=== PATIENT | female | born 1990 | race Caucasian/White ===

== ENCOUNTER 2018-04-15 20:12 | Emergency (ER) | payer SELFPAY ==
[2018-04-15] MEDS ORDERED: NA CHLORIDE 0.9% 1,000 ML ONE ×2 (20:45→21:47)
[2018-04-15] MEDS ORDERED: ACETAMINOPHEN 500 MG TAB ONE (21:07)
[2018-04-15 21:09] LABS: Absolute Lymphocytes (CBC) 4.3 K/uL (0.7-4.9); Absolute Monocytes 0.7 K/uL (0.1-1.3); Absolute Neutrophil 4.8 K/uL (1.8-8.0); Basophils % 0.4 % (0-1.3); Eosinophils % 0.8 % (0-4.4); Hematocrit 41.5 % (36.0-45.0); Lymphocytes % 42.9 % (15.3-44.8); MCH 31.9 pg (27.0-35.0); MCV 93.8 fL (80-100); MPV 9.8 fL (7.6-11.3); Monocytes % 7.4 % (3.3-12.3); RBC Red Blood Cell Count 4.42 M/uL (3.86-4.86)
[2018-04-15 21:25] LABS: Albumin 3.9 g/dL (3.4-5.0); Bilirubin Total 0.4 mg/dL (0.2-1.0); Potassium 3.3 mmol/L (3.5-5.1); Protein, Total 7.4 g/dL (6.4-8.2)
[2018-04-15 22:01] LABS: Urine Blood NEGATIVE (NEG); Urine Glucose NEGATIVE (NEG); Urine Protein NEGATIVE (NEG); Urine pH 6.5 (5.0-7.0)
[2018-04-15] MEDS ORDERED: POTASSIUM 25 MEQ EFFERV TAB ONE (22:02)
[2018-04-15 22:14] LABS: Barbiturates NEGATIVE (NEGATIVE); Benzodiazepines NEGATIVE (NEGATIVE); Cocaine NEGATIVE (NEGATIVE); METHAMPHETAM POSITIVE (NEGATIVE); Methadone NEGATIVE (NEGATIVE); Opiates NEGATIVE (NEGATIVE); Phencyclidine NEGATIVE (NEGATIVE); THC Cannibis NEGATIVE (NEGATIVE)
--- NOTE | 2018-04-16 00:33 | ER ---
Nurse's Notes [facility] Name: Brandy Olivia Age: 27 yrs Sex: Female : 1990 Arrival Date: 04/15/2018 Time: 20:18 Bed 19 Private MD: Diagnosis: Methamphetamine abuse Presentation: 04/15 20:25 Presenting complaint: Patient states: "I think I may have overdosed on meth. This is aj the first time I have ever smoked it." Patient reports smoking meth last night, feels palpitations last night, can't catch her breath. Patient reports burning in chest. Transition of care: patient was not received from another setting of care. Onset of symptoms was April 14, 2018. Risk Assessment: Do you want to hurt yourself or someone else? Patient reports no desire to harm self or others. Initial Sepsis Screen: Does the patient meet any 2 criteria? No. Patient's initial sepsis screen is negative. Does the patient have a suspected source of infection? No. Patient's initial sepsis screen is negative. Care prior to arrival: None. 20:25 Method Of Arrival: Ambulatory 20:25 Acuity: ARIN 3 aj Triage Assessment: 20:27 General: Appears in no apparent distress. uncomfortable, Behavior is calm, cooperative, aj appropriate for age. Pain: Complains of pain in chest. Neuro: Level of Consciousness is awake, alert, obeys commands, Oriented to person, place, time, situation, Appropriate for age. Cardiovascular: Reports chest pain. Respiratory: Airway is patent Respiratory effort is even, unlabored, Respiratory pattern is regular, symmetrical. Derm: Skin is intact, is healthy with good turgor, Skin is pink, warm \\T\\ dry. normal. 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 - Social history:: Smoking status: Patient uses tobacco products, smokes one pack cigarettes per day. Patient uses alcohol, weekly. street drugs, Methamphetamine (Meth). - Ebola Screening: : Patient negative for fever greater than or equal to 101.5 degrees Fahrenheit, and additional compatible Ebola Virus Disease symptoms Patient denies exposure to infectious person Patient denies travel to an Ebola-affected area in the 21 days before illness onset No symptoms or risks identified at this time. Screenin:05 Abuse screen: Denies threats or abuse. Denies injuries from another. Nutritional bs1 screening: No deficits noted. Tuberculosis screening: No symptoms or risk factors identified. Fall Risk None identified. Assessment: 20:50 General: Appears uncomfortable, Behavior is cooperative, anxious. Pain: Complains of bs1 pain in chest. Neuro: Level of Consciousness is awake, alert, obeys commands, Oriented to person, place, time, situation. Neuro: Reports headache. Cardiovascular: Reports chest pain, shortness of breath, Heart tones S1 S2 present Capillary refill < 3 seconds Patient's skin is warm and dry. Respiratory: Airway is patent Trachea midline Respiratory effort is even, unlabored, Respiratory pattern is regular, symmetrical, Breath sounds are clear bilaterally. GI: No signs and/or symptoms were reported involving the gastrointestinal system. : No signs and/or symptoms were reported regarding the genitourinary system. EENT: Eyes redness noted to bilateral eyes. Derm: No signs and/or symptoms reported regarding the dermatologic system. Musculoskeletal: Circulation, motion, and sensation intact. Capillary refill < 3 seconds, Range of motion: intact in all extremities. 21:50 Reassessment: No changes from previously documented assessment. Patient and/or family bs1 updated on plan of care and expected duration. Pain level reassessed. Patient is alert, oriented x 3, equal unlabored respirations, skin warm/dry/pink. Patient crying, anxious, reports heaviness in chest and "Hard to catch breath.". 22:50 Reassessment: Patient appears in no apparent distress at this time. Patient and/or bs1 family updated on plan of care and expected duration. Pain level reassessed. Patient is alert, oriented x 3, equal unlabored respirations, skin warm/dry/pink. Patient reports symptoms improving. Heart rate decreasing. Informed of POC. Patient was given 500mg tylenol po, per verbal order from SD Mayer. 04/16 00:00 Reassessment: Patient appears in no apparent distress at this time. Patient and/or bs1 family updated on plan of care and expected duration. Pain level reassessed. Patient is alert, oriented x 3, equal unlabored respirations, skin warm/dry/pink. No further needs at this time. Patient denies pain at this time. 00:45 Reassessment: Patient appears in no apparent distress at this time. Patient and/or bs1 family updated on plan of care and expected duration. Pain level reassessed. Patient is alert, oriented x 3, equal unlabored respirations, skin warm/dry/pink. Patient states understanding of DC instructions/POC Patient states feeling better. Patient states symptoms have improved. Vital Signs: 04/15 20:27 BP 187 / 118; Pulse 125; Resp 20; Temp 98.4; Pulse Ox 97% on R/A; Weight 81.65 kg; aj Height 5 ft. 2 in. (157.48 cm); 21:05 BP 149 / 98; Pulse 112; Resp 22 S; Pulse Ox 98% on R/A; bs1 22:05 BP 138 / 98; Pulse 83; Resp 17 S; Pulse Ox 98% on R/A; bs1 23:05 BP 148 / 95; Pulse 86; Resp 18 S; Pulse Ox 98% on R/A; Pain 0/10; bs1 04/16 00:05 BP 131 / 91; Pulse 93; Resp 18; Pulse Ox 100% on R/A; Pain 0/10; bs1 00:45 BP 124 / 77; Pulse 87; Resp 18; Temp 98; Pulse Ox 98% on R/A; Pain 0/10; bs1 04/15 20:27 Body Mass Index 32.92 (81.65 kg, 157.48 cm) ED Course: 04/15 20:18 Patient arrived in ED. es 20:27 Triage completed. aj 20:27 Arm band placed on right wrist. Patient placed in an exam room. aj 20:31 Alfredo Mayer NP is PHCP. pm1 20:31 Siddhartha Ferro MD is Attending Physician. pm1 20:38 Ayanna Bonilla, MARIO ALBERTO is Primary Nurse. bs1 20:57 Inserted saline lock: 22 gauge in left antecubital area, using aseptic technique. Blood bs1 collected. 21:06 Patient has correct armband on for positive identification. Bed in low position. Call bs1 light in reach. Side rails up X 1. Pulse ox on. NIBP on. 04/16 00:52 No provider procedures requiring assistance completed. IV discontinued, bleeding bs1 controlled, No redness/swelling at site. Pressure dressing applied. Administered Medications: 04/15 21:04 Drug: NS 0.9% 1000 ml Route: IV; Rate: 1000 ml; Site: left antecubital; bs1 04/16 00:55 Follow up: IV Status: Completed infusion bs1 04/15 22:26 Drug: Potassium Effervescent Tablet 50 mEq Route: PO; bs1 23:39 Follow up: Response: No adverse reaction bs1 22:26 Drug: NS 0.9% 1000 ml Route: IV; Rate: 1000 ml; Site: left antecubital; bs1 04/16 00:54 Follow up: IV Status: Completed infusion bs1 Outcome: 00:32 Discharge ordered by MD. pm1 00:52 Discharged to home ambulatory, with friend. bs1 00:52 Condition: stable 00:52 Discharge instructions given to patient, Instructed on discharge instructions, follow up and referral plans. Demonstrated understanding of instructions, follow-up care. 00:55 Patient left the ED. bs1 Signatures: Dana Ramirez, RN RN Daisy Greco Patrick, CARBON COATER MACHINE OPERATOR CAR[employer] COATER MACHINE OPERATOR pm1 Ayanna Bonilla RN RN bs1 Corrections: (The following items were deleted from the chart) 00:58 04/15 22:50 Reassessment: Patient appears in no apparent distress at this time. Patient bs1 and/or family updated on plan of care and expected duration. Pain level reassessed. Patient is alert, oriented x 3, equal unlabored respirations, skin warm/dry/pink. Patient reports symptoms improving. Heart rate decreasing. Informed of POC bs1
--- NOTE | 2018-04-16 00:33 | EDPHYS ---
Physician Documentation [facility] Name: Brandy Olivia Age: 27 yrs Sex: Female : 1990 Arrival Date: 04/15/2018 Time: 20:18 Bed 19 Private MD: ED Physician Siddhartha Ferro HPI: 04/15 22:00 This 27 yrs old Female presents to ER via Ambulatory with complaints of pm1 Possible Overdose, Palpitations. 22:00 The patient presents to the emergency department Patient used methamphetamine for the pm1 first time last night in the this morning. Patient smoked and snorted the drug. Associated signs and symptoms: Pertinent positives: palpitations, Chest pain, Pertinent negatives: auditory hallucinations, shortness of breath, visual hallucinations. The patient has not experienced similar symptoms in the past. 22:00 Patient feels like she is crawling out of her skin. 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 - Social history:: Smoking status: Patient uses tobacco products, smokes one pack cigarettes per day. Patient uses alcohol, weekly. street drugs, Methamphetamine (Meth). - Ebola Screening: : Patient negative for fever greater than or equal to 101.5 degrees Fahrenheit, and additional compatible Ebola Virus Disease symptoms Patient denies exposure to infectious person Patient denies travel to an Ebola-affected area in the 21 days before illness onset No symptoms or risks identified at this time. ROS: 22:00 Constitutional: Negative for fever, chills, and weight loss, Eyes: Negative for injury, pm1 pain, redness, and discharge, ENT: Negative for injury, pain, and discharge, Neck: Negative for injury, pain, and swelling. 22:00 Respiratory: Negative for shortness of breath, cough, wheezing, and pleuritic chest pain, Abdomen/GI: Negative for abdominal pain, nausea, vomiting, diarrhea, and constipation, Back: Negative for injury and pain, : Negative for injury, bleeding, discharge, and swelling, MS/Extremity: Negative for injury and deformity, Skin: Negative for injury, rash, and discoloration, Neuro: Negative for headache, weakness, numbness, tingling, and seizure. 22:00 Cardiovascular: Positive for chest pain, palpitations, Negative for edema, orthopnea. 22:00 Psych: Positive for anxiety, Negative for auditory hallucinations, visual hallucinations. Exam: 22:00 Constitutional: This is a well developed, well nourished patient who is awake, alert, pm1 and in no acute distress. Head/Face: Normocephalic, atraumatic. Eyes: Pupils equal round and reactive to light, extra-ocular motions intact. Lids and lashes normal. Conjunctiva and sclera are non-icteric and not injected. Cornea within normal limits. Periorbital areas with no swelling, redness, or edema. ENT: Nares patent. No nasal discharge, no septal abnormalities noted. Tympanic membranes are normal and external auditory canals are clear. Oropharynx with no redness, swelling, or masses, exudates, or evidence of obstruction, uvula midline. Mucous membranes moist. Neck: Trachea midline, no thyromegaly or masses palpated, and no cervical lymphadenopathy. Supple, full range of motion without nuchal rigidity, or vertebral point tenderness. No Meningismus. Chest/axilla: Normal chest wall appearance and motion. Nontender with no deformity. No lesions are appreciated. Cardiovascular: Regular rate and rhythm with a normal S1 and S2. No gallops, murmurs, or rubs. Normal PMI, no JVD. No pulse deficits. Respiratory: Lungs have equal breath sounds bilaterally, clear to auscultation and percussion. No rales, rhonchi or wheezes noted. No increased work of breathing, no retractions or nasal flaring. Abdomen/GI: Soft, non-tender, with normal bowel sounds. No distension or tympany. No guarding or rebound. No evidence of tenderness throughout. Back: No spinal tenderness. No costovertebral tenderness. Full range of motion. Skin: Warm, dry with normal turgor. Normal color with no rashes, no lesions, and no evidence of cellulitis. MS/ Extremity: Pulses equal, no cyanosis. Neurovascular intact. Full, normal range of motion. 22:00 Neuro: Orientation: is normal, Motor: is normal. Vital Signs: 20:27 BP 187 / 118; Pulse 125; Resp 20; Temp 98.4; Pulse Ox 97% on R/A; Weight 81.65 kg; aj Height 5 ft. 2 in. (157.48 cm); 21:05 BP 149 / 98; Pulse 112; Resp 22 S; Pulse Ox 98% on R/A; bs1 22:05 BP 138 / 98; Pulse 83; Resp 17 S; Pulse Ox 98% on R/A; bs1 23:05 BP 148 / 95; Pulse 86; Resp 18 S; Pulse Ox 98% on R/A; Pain 0/10; bs1 04/16 00:05 BP 131 / 91; Pulse 93; Resp 18; Pulse Ox 100% on R/A; Pain 0/10; bs1 00:45 BP 124 / 77; Pulse 87; Resp 18; Temp 98; Pulse Ox 98% on R/A; Pain 0/10; bs1 04/15 20:27 Body Mass Index 32.92 (81.65 kg, 157.48 cm) aj MDM: 04/15 20:31 Patient medically screened. pm1 04/16 00:28 Data reviewed: vital signs. Data interpreted: Pulse oximetry: on room air is 100 %. pm1 Interpretation: normal. Counseling: I had a detailed discussion with the patient and/or guardian regarding: the historical points, exam findings, and any diagnostic results supporting the discharge/admit diagnosis, lab results, the need for outpatient follow up, to return to the emergency department if symptoms worsen or persist or if there are any questions or concerns that arise at home. 04/15 20:37 Order name: UDS; Complete Time: 22:28 pm04/15 20:37 Order name: CBC with Diff; Complete Time: 21:30 pm04/15 20:37 Order name: CMP; Complete Time: 21:30 pm04/15 21:51 Order name: Urine Dipstick--Ancillary (enter results); Complete Time: 22:28 ms 04/15 21:51 Order name: Urine --Ancillary (enter results); Complete Time: 22:28 ms 04/15 20:37 Order name: EKG; Complete Time: 20:37 pm1 04/15 20:37 Order name: EKG - Nurse/Tech; Complete Time: 21:03 pm04/15 20:37 Order name: IV Saline Lock; Complete Time: 21:03 pm04/15 20:37 Order name: Urine Test (obtain specimen); Complete Time: 21:50 pm1 Administered Medications: 04/15 21:04 Drug: NS 0.9% 1000 ml Route: IV; Rate: 1000 ml; Site: left antecubital; bs1 04/16 00:55 Follow up: IV Status: Completed infusion bs1 04/15 22:26 Drug: Potassium Effervescent Tablet 50 mEq Route: PO; bs1 23:39 Follow up: Response: No adverse reaction bs1 22:26 Drug: NS 0.9% 1000 ml Route: IV; Rate: 1000 ml; Site: left antecubital; bs1 04/16 00:54 Follow up: IV Status: Completed infusion bs1 Disposition: 04/16/18 00:32 Discharged to Home. Impression: Methamphetamine abuse. - Condition is Stable. - Discharge Instructions: Stimulant Use Disorder-Methamphetamines. - Medication Reconciliation Form, Thank You Letter form. - Follow up: Emergency Department; When: As needed; Reason: Worsening of condition. Follow up: Private Physician; When: 2 - 3 days; Reason: Recheck today's complaints, Continuance of care, Re-evaluation by your physician. - Problem is new. - Symptoms have improved. Signatures: Dispatcher [employer] EDMS Dana Ramirez RN RN Alfredo Zamora NP CONTROL CABINET ASSEMBLER pm1 Ayanna Bonilla RN RN bs1 Corrections: (The following items were deleted from the chart) 00:55 00:32 04/16/2018 00:32 Discharged to Home. Impression: Methamphetamine abuse. Condition bs1 is Stable. Forms are Medication Reconciliation Form, Thank You Letter, Antibiotic Education, Prescription Opioid Use. Follow up: Emergency Department; When: As needed; Reason: Worsening of condition. Follow up: Private Physician; When: 2 - 3 days; Reason: Recheck today's complaints, Continuance of care, Re-evaluation by your physician. Problem is new. Symptoms have improved. pm1
[2018-04-16 01:06] VITALS: BP 124/77; TEMP 98; O2SAT 98
--- NOTE | 2018-04-16 06:43 | EKG ---
Test Date: 2018-04-15 Test Time: 20:36:06 Buyer Tobacco Head: TIMI MEASUREMENT RESULTS: Intervals: Rate: 103 OR: 142 QRSD: 80 QT: 340 QTc: 445 [place]: P: 57 OR: 142 QRS: 72 T: 39 INTERPRETIVE STATEMENTS: Sinus tachycardia Otherwise normal ECG No previous ECG available for comparison Electronically Signed On 04-16-18 06:42:04 CDT by Memo Virk
== END 2018-04-16 00:55 | disposition home or self-care (01) ==
LOC: ER 20:12
DX: F15.10 Other stimulant abuse, uncomplicated (principal); F17.210 Nicotine dependence, cigarettes, uncomplicated
CPT/HCPCS: 36415; 80053; 80307; 81003; 81025; 85025; 93005; 96360; 96361; 99284; J7030

== ENCOUNTER 2022-03-22 12:50 | Emergency (ER) | payer OTHER ==
[2022-03-22] MEDS ORDERED: METOCLOPRAMIDE 10 MG/2mL INJ ONE (13:29)
[2022-03-22] MEDS ORDERED: DIPHENHYDRAMINE 50 MG/ML VIAL ONE (13:30)
[2022-03-22] MEDS ORDERED: NA CHLORIDE 0.9% 1,000 ML ONE (13:30)
[2022-03-22] MEDS ORDERED: dexAMETHasone 10 MG/ML VIAL ONE (13:30)
--- NOTE | 2022-03-22 14:55 | ER ---
Nurse's Notes [facility] Name: Brandy Olivia Age: 31 yrs Sex: Female : 1990 Arrival Date: 03/22/2022 Time: 12:52 Bed 11 Private MD: Diagnosis: Headache Presentation: 03/22 12:56 Chief complaint: Patient states: seems to be having a migraine, started at 3 am , iw throbbing pain throughout day, getting worse , bent over and felt like she was going to pass out feels dizzy, reports pain to front and top of head, feels better when she applies pressure to her head, took Excedrin with no relief , has had a migraine in past but did not have dizziness with it. Coronavirus screen: Client presents with at least one sign or symptom that may indicate coronavirus-19. Ebola Screen: Patient negative for fever greater than or equal to 101.5 degrees Fahrenheit, and additional compatible Ebola Virus Disease symptoms Patient denies exposure to infectious person. Patient denies travel to an Ebola-affected area in the 21 days before illness onset. No symptoms or risks identified at this time. Initial Sepsis Screen: Does the patient meet any 2 criteria? No. Patient's initial sepsis screen is negative. Does the patient have a suspected source of infection? No. Patient's initial sepsis screen is negative. Risk Assessment: Do you want to hurt yourself or someone else? Patient reports no desire to harm self or others. Onset of symptoms was March 22, 2022. 12:56 Method Of Arrival: Ambulatory iw 12:56 Acuity: ARIN 3 iw Historical: - Allergies: 12:58 No Known Allergies; iw - Home Meds: 12:58 fluoxetine 40 mg Oral cap 1 cap once daily [Active]; iw - PMHx: 12:58 Post depression; iw - PSHx: 12:58 section; iw - Immunization history:: Client reports receiving the 2nd dose of the Covid vaccine. - Social history:: Smoking status: Reported history of juuling and/or vaping. Screenin:48 Abuse screen: Denies threats or abuse. Denies injuries from another. Nutritional iw screening: No deficits noted. Tuberculosis screening: No symptoms or risk factors identified. Fall Risk IV access (20 points). Assessment: 13:00 General: Appears in no apparent distress. Behavior is calm, cooperative. Pain: iw Complains of pain in back of head and face. Neuro: Level of Consciousness is awake, alert, obeys commands, Oriented to person, place, time, situation, Moves all extremities. Reports headache frontal area. Cardiovascular: Patient's skin is warm and dry. Respiratory: Respiratory effort is even, unlabored, Respiratory pattern is regular, symmetrical. 15:00 Reassessment: Patient appears in no apparent distress at this time. Patient and/or ld1 family updated on plan of care and expected duration. Pain level reassessed. Patient is alert, oriented x 3, equal unlabored respirations, skin warm/dry/pink. Vital Signs: 12:56 BP 128 / 91; Pulse 78; Resp 16; Temp 97.5; Pulse Ox 100% on R/A; iw ED Course: 12:52 Patient arrived in ED. mr 12:57 Tesfaye Ruiz DO is Attending Physician. ms3 12:58 Triage completed. iw 12:59 Arm band placed on. iw 13:00 Inserted saline lock: 20 gauge in right antecubital area, using aseptic technique. iw 13:47 Halie Valerio, RN is Primary Nurse. iw 13:50 Inserted saline lock: 20 gauge in left hand, using aseptic technique. ld1 14:54 Alec Ray MD is Referral Physician. ms3 15:00 Patient has correct armband on for positive identification. Placed in gown. Bed in low ld1 position. Call light in reach. Side rails up X2. Pulse ox on. NIBP on. Door closed. Noise minimized. Warm blanket given. 15:00 No provider procedures requiring assistance completed. IV discontinued, intact, ld1 bleeding controlled, No redness/swelling at site. Administered Medications: 13:50 Drug: Reglan (metoCLOPramide) 10 mg Route: IVP; Site: left hand; ld1 13:50 Drug: Benadryl (diphenhydrAMINE) 25 mg Route: IVP; Site: left hand; ld1 13:50 Drug: Decadron - Dexamethasone 10 mg Route: IVP; Site: left hand; ld1 13:50 Drug: NS 0.9% 1000 ml Route: IV; Rate: 1000 ml; Site: left hand; ld1 Medication: 15:00 VIS not applicable for this client. ld1 Outcome: 14:55 Discharge ordered by . ms3 15:00 Discharged to home ambulatory. ld1 15:00 Condition: stable 15:00 Discharge instructions given to patient, Instructed on discharge instructions, follow up and referral plans. medication usage, Demonstrated understanding of instructions, follow-up care, medications, Prescriptions given X 1. 15:01 Patient left the ED. ld1 Signatures: Cinthia Swann mr Halie Valerio RN RN iw Tesfaye Ruiz DO DO ms3 Keisha Narvaez RN RN ld1
--- NOTE | 2022-03-22 14:55 | EDPHYS ---
Physician Documentation [facility] Name: Brandy Olivia Age: 31 yrs Sex: Female : 1990 Arrival Date: 03/22/2022 Time: 12:52 Bed 11 Private MD: XENIA Physician Tesfaye Ruiz Historical: - Allergies: 03/22 12:58 No Known Allergies; iw - Home Meds: 12:58 fluoxetine 40 mg Oral cap 1 cap once daily [Active]; iw - PMHx: 12:58 Post depression; iw - PSHx: 12:58 section; iw - Immunization history:: Client reports receiving the 2nd dose of the Covid vaccine. - Social history:: Smoking status: Reported history of juuling and/or vaping. Vital Signs: 12:56 BP 128 / 91; Pulse 78; Resp 16; Temp 97.5; Pulse Ox 100% on R/A; iw MDM: 13:10 Patient medically screened. ms3 Administered Medications: 13:50 Drug: Reglan (metoCLOPramide) 10 mg Route: IVP; Site: left hand; ld1 13:50 Drug: Benadryl (diphenhydrAMINE) 25 mg Route: IVP; Site: left hand; ld1 13:50 Drug: Decadron - Dexamethasone 10 mg Route: IVP; Site: left hand; ld1 13:50 Drug: NS 0.9% 1000 ml Route: IV; Rate: 1000 ml; Site: left hand; ld1 Disposition Summary: 03/22/22 14:55 Discharge Ordered Location: Home ms3 Condition: Stable ms3 Diagnosis - Headache ms3 Followup: ms3 - With: Alec Ray MD - When: 2 - 3 days - Reason: Discharge Instructions: - Discharge Summary Sheet cp - General Headache Without Cause ms3 Forms: - Medication Reconciliation Form ms3 - Thank You Letter ms3 - Antibiotic Education ms3 - Prescription Opioid Use ms3 Prescriptions: - Fioricet 50-300-40 mg Oral capsule - take 1 capsule by ORAL route every 4 hours as needed; 20 capsule; Refills: 0, cp Product Selection Permitted Signatures: Halie Valerio RN RN iw Tesfaye Ruiz DO DO ms3 Keisha Narvaez RN RN ld1
[2022-03-22 15:05] VITALS: BP 128/91; TEMP 97.5; O2SAT 100
== END 2022-03-22 15:01 | disposition home or self-care (01) ==
LOC: ER 12:50
DX: R51.9 Headache, unspecified (principal); O99.345 Other mental disorders complicating the puerperium; F53.0 Postpartum depression
CPT/HCPCS: J2765; J1200; J1100; J7030

== ENCOUNTER 2022-03-23 08:53 | Emergency (ER) | payer OTHER ==
[2022-03-23] MEDS ORDERED: METHYLPREDNISOLONE 125 MG INJ ONE (09:38)
[2022-03-23] MEDS ORDERED: METOCLOPRAMIDE 10 MG/2mL INJ ONE (09:38)
[2022-03-23] MEDS ORDERED: DIPHENHYDRAMINE 50 MG/ML VIAL ONE (09:38)
[2022-03-23] MEDS ORDERED: KETOROLAC 30 MG/ML INJ ONE (09:39)
[2022-03-23] MEDS ORDERED: NA CHLORIDE 0.9% 1,000 ML ONE (09:39)
--- NOTE | 2022-03-23 11:18 | EDPHYS ---
Physician Documentation [facility] Name: Brandy Olivia Age: 31 yrs Sex: Female : 1990 Arrival Date: 03/23/2022 Time: 08:55 Bed 18 Private MD: ED Physician Meet Bentley HPI: 03/23 09:23 This 31 yrs old Female presents to ER via Ambulatory with complaints of Headache, Back jh7 Pain, Neck Pain, <24hrs Old, Leg Pain. 09:23 The patient complains of pain to the top of head, left temporal area and right temporal jh7 area. Onset: The symptoms/episode began/occurred yesterday. Patient complains of headache, neck pain, back pain, and bilateral leg pain. States that she felt better after her ER visit yesterday, that the Fioricet is not helping. States that the headache is worse than yesterday, but that she is also concerned that she may have COVID. No neuro symptoms at this time.. 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 - Social history:: Smoking status: Reported history of juuling and/or vaping. ROS: 09:23 Eyes: Negative for injury, pain, redness, and discharge, ENT: Negative for injury, jh7 pain, and discharge, Cardiovascular: Negative for chest pain, palpitations, and edema, Respiratory: Negative for shortness of breath, cough, wheezing, and pleuritic chest pain, Abdomen/GI: Negative for abdominal pain, nausea, vomiting, diarrhea, and constipation, MS/Extremity: Negative for injury and deformity, Skin: Negative for injury, rash, and discoloration. 09:23 Constitutional: Positive for body aches, Negative for chills, fatigue, fever. 09:23 Neck: Positive for pain at rest, Negative for injury or acute deformity, swelling, tenderness. 09:23 Back: 09:23 Neuro: Positive for headache, Negative for altered mental status, dizziness, gait disturbance, loss of consciousness, numbness, syncope, tingling. 09:23 All other systems are negative. Exam: 09:23 Head/Face: Normocephalic, atraumatic. ENT: Nares patent. No nasal discharge, no jh7 septal abnormalities noted. Tympanic membranes are normal and external auditory canals are clear. Oropharynx with no redness, swelling, or masses, exudates, or evidence of obstruction, uvula midline. Mucous membranes moist. Neck: Trachea midline, no thyromegaly or masses palpated, and no cervical lymphadenopathy. Supple, full range of motion without nuchal rigidity, or vertebral point tenderness. No Meningismus. Cardiovascular: Regular rate and rhythm with a normal S1 and S2. No gallops, murmurs, or rubs. Normal PMI, no JVD. No pulse deficits. Respiratory: Lungs have equal breath sounds bilaterally, clear to auscultation and percussion. No rales, rhonchi or wheezes noted. No increased work of breathing, no retractions or nasal flaring. Abdomen/GI: Soft, non-tender, with normal bowel sounds. No distension or tympany. No guarding or rebound. No evidence of tenderness throughout. Back: No spinal tenderness. No costovertebral tenderness. Full range of motion. Skin: Warm, dry with normal turgor. Normal color with no rashes, no lesions, and no evidence of cellulitis. MS/ Extremity: Pulses equal, no cyanosis. Neurovascular intact. Full, normal range of motion. Neuro: Awake and alert, GCS 15, oriented to person, place, time, and situation. Cranial nerves II-XII grossly intact. Motor strength 5/5 in all extremities. Sensory grossly intact. Cerebellar exam normal. Normal gait. 09:23 Constitutional: The patient appears alert, awake, uncomfortable. Vital Signs: 09:00 BP 130 / 95; Pulse 73; Resp 15; Temp 97.8(TE); Pulse Ox 100% on R/A; Weight 86.18 kg; ss Height 5 ft. 2 in. (157.48 cm); Pain 10/10; 10:17 BP 107 / 65; Pulse 55; Resp 16; Temp 98.6; Pulse Ox 100% ; kr3 11:15 BP 108 / 64; Pulse 60; Resp 18; Pulse Ox 98% on R/A; kr3 11:15 BP 134 / 76; Pulse 62; Resp 18; Pulse Ox 98% on R/A; kr3 09:00 Body Mass Index 34.75 (86.18 kg, 157.48 cm) MDM: 08:59 Patient medically screened. [facility] 03/23 09:21 Order name: SARS-COV-2 RT PCR (Document "Date of Onset" if Symptomatic); Complete Time: [facility] 11:08 Administered Medications: 10:03 Drug: Ketorolac 30 mg Route: IVP; Site: right hand; kr3 11:39 Follow up: Response: No adverse reaction kr3 10:04 Drug: diphenhydrAMINE 25 mg Route: IVP; Site: right hand; kr3 11:39 Follow up: Response: No adverse reaction kr3 10:05 Drug: SOLU-Medrol (methylPrednisoLONE) 125 mg Route: IVP; Site: right hand; kr3 11:39 Follow up: Response: No adverse reaction kr3 10:06 Drug: Reglan (metoCLOPramide) 10 mg Route: IVP; Site: right hand; kr3 11:39 Follow up: Response: No adverse reaction kr3 10:07 Drug: NS 0.9% 1000 ml Route: IV; Rate: 1 bolus; Site: right hand; kr3 11:38 Follow up: Response: No adverse reaction; IV Status: Completed infusion; IV Intake: kr3 1000ml Disposition Summary: 03/23/22 11:18 Discharge Ordered Location: Home [facility] Problem: new [facility] Condition: Stable [facility] Diagnosis - Headache [facility] - Tension-type headache [facility] Followup: [facility] - With: Private Physician - When: 2 - 3 days - Reason: Recheck today's complaints Discharge Instructions: - Discharge Summary Sheet [facility] - General Headache Without Cause [facility] Forms: - Medication Reconciliation Form [facility] - Thank You Letter [facility] Prescriptions: - Naprosyn 500 mg Oral Tablet - take 1 tablet by ORAL route 2 times per day take with food; 30 tablet; Refills: [facility] 0, Product Selection Permitted Signatures: Dispatcher [employer] Irene Narvaez RN RN ss Megan Hannah, SLUDGE CONTROL ATTENDANT SLUDGE CONTROL ATTENDANT [facility] Nirali Riley RN RN kr3
--- NOTE | 2022-03-23 11:18 | ER ---
Nurse's Notes [facility] Name: Brandy Olivia Age: 31 yrs Sex: Female : 1990 Arrival Date: 03/23/2022 Time: 08:55 Bed 18 Private MD: Diagnosis: Headache;Tension-type headache Presentation: 03/23 09:00 Chief complaint: Patient states: "I was here for a Migraine yesterday and was given a ss migraine cocktail and given a prescription which is not helping at all. Today my migraine is much worse.". Coronavirus screen: Client denies travel out of the [place] in the last 14 days. Ebola Screen: Patient denies exposure to infectious person. Patient denies travel to an Ebola-affected area in the 21 days before illness onset. Initial Sepsis Screen: Does the patient meet any 2 criteria? No. Patient's initial sepsis screen is negative. Does the patient have a suspected source of infection? No. Patient's initial sepsis screen is negative. Risk Assessment: Do you want to hurt yourself or someone else? Patient reports no desire to harm self or others. Onset of symptoms was March 22, 2022. 09:00 Method Of Arrival: Ambulatory ss 09:00 Acuity: ARIN 3 ss Triage Assessment: 11:44 Headache History: The patient has had previous headaches and this one is similar to kr3 previous episodes. General: Appears comfortable, Behavior is calm, cooperative. Pain: Also complains of. Pain: Denies pain. 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 - Social history:: Smoking status: Reported history of juuling and/or vaping. Screenin:43 Abuse screen: Denies threats or abuse. Nutritional screening: No deficits noted. kr3 Tuberculosis screening: No symptoms or risk factors identified. Fall Risk IV access (20 points). Total Ramírez Fall Scale indicates No Risk (0-24 pts). Assessment: 10:04 Pain: Complains of pain in face Pain radiates to neck and shoulders Pain currently is 6 kr3 out of 10 on a pain scale. Quality of pain is described as aching, throbbing, Pain began 2-3 days ago. Is continuous. 10:04 Neuro: No deficits noted. kr3 10:04 General: Appears uncomfortable, Behavior is calm, cooperative. kr3 11:00 Reassessment: No changes from previously documented assessment. Patient and/or family kr3 updated on plan of care and expected duration. Pain level reassessed. 11:43 Reassessment: No changes from previously documented assessment. Patient states feeling kr3 better. Vital Signs: 09:00 BP 130 / 95; Pulse 73; Resp 15; Temp 97.8(TE); Pulse Ox 100% on R/A; Weight 86.18 kg; Height 5 ft. 2 in. (157.48 cm); Pain 10/10; 10:17 BP 107 / 65; Pulse 55; Resp 16; Temp 98.6; Pulse Ox 100% ; kr3 11:15 BP 108 / 64; Pulse 60; Resp 18; Pulse Ox 98% on R/A; kr3 11:15 BP 134 / 76; Pulse 62; Resp 18; Pulse Ox 98% on R/A; kr3 09:00 Body Mass Index 34.75 (86.18 kg, 157.48 cm) ED Course: 08:55 Patient arrived in ED. as 08:59 Megan Hannah FNP [facility] 7 08:59 Meet Bentley MD is Attending Physician. 7 09:00 Arm band placed on Patient placed in an exam room, on a stretcher. ll1 09:02 Triage completed. 09:05 Nirali Riley, MARIO ALBERTO is Primary Nurse. kr3 10:08 SARS-COV-2 RT PCR (Document "Date of Onset" if Symptomatic) Sent. kr3 10:20 Inserted saline lock: 22 gauge in right hand, using aseptic technique. kr3 10:20 No provider procedures requiring assistance completed. kr3 11:42 IV discontinued, intact, bleeding controlled, No redness/swelling at site. Pressure kr3 dressing applied. 11:46 Patient has correct armband on for positive identification. Bed in low position. Call kr3 light in reach. Side rails up X 1. Administered Medications: 10:03 Drug: Ketorolac 30 mg Route: IVP; Site: right hand; kr3 11:39 Follow up: Response: No adverse reaction kr3 10:04 Drug: diphenhydrAMINE 25 mg Route: IVP; Site: right hand; kr3 11:39 Follow up: Response: No adverse reaction kr3 10:05 Drug: SOLU-Medrol (methylPrednisoLONE) 125 mg Route: IVP; Site: right hand; kr3 11:39 Follow up: Response: No adverse reaction kr3 10:06 Drug: Reglan (metoCLOPramide) 10 mg Route: IVP; Site: right hand; kr3 11:39 Follow up: Response: No adverse reaction kr3 10:07 Drug: NS 0.9% 1000 ml Route: IV; Rate: 1 bolus; Site: right hand; kr3 11:38 Follow up: Response: No adverse reaction; IV Status: Completed infusion; IV Intake: kr3 1000ml Medication: 11:46 VIS not applicable for this client. kr3 Intake: 11:38 IV: 1000ml; Total: 1000ml. kr3 Outcome: 11:18 Discharge ordered by . ann 11:45 Discharged to home ambulatory. kr3 11:45 Condition: stable 11:45 Discharge instructions given to patient, Instructed on discharge instructions, follow up and referral plans. medication usage, Demonstrated understanding of instructions, follow-up care, medications, Prescriptions given X 1. 11:47 Patient left the ED. kr3 Signatures: Koki Borja Shelby, RN RN ss Joseph Goldman RN RN ll1 Megan Hannah, ACQUISITION LEAD ACQUISITION LEAD [facility] Nirali Riley RN RN kr3 Corrections: (The following items were deleted from the chart) 11:03 10:04 Pain: Complains of pain in face Pain radiates to neck and shoulders Pain kr3 currently is 6 out of 10 on a pain scale. Quality of pain is described as aching, throbbing, Pain began 2-3 days ago. Is continuous, kr3
[2022-03-23 14:09] VITALS: TEMP 98.6
[2022-03-23 14:11] VITALS: BP 134/76; O2SAT 98
== END 2022-03-23 11:47 | disposition home or self-care (01) ==
LOC: ER 08:53
DX: G44.209 Tension-type headache, unspecified, not intractable (principal); Z20.822 Contact with and (suspected) exposure to COVID-19
CPT/HCPCS: U0003; J2765; J1200; J7030; J2930

== ENCOUNTER 2022-03-26 14:51 | Emergency (ER) | payer OTHER ==
[2022-03-26] MEDS ORDERED: MEPERIDINE HCL 50 MG/ML ONE (15:56)
[2022-03-26] MEDS ORDERED: PROMETHAZINE INJ 25 MG/ML AMP ONE (15:56)
[2022-03-26] MEDS ORDERED: dexAMETHasone 10 MG/ML VIAL ONE (15:57)
[2022-03-26] MEDS ORDERED: NA CHLORIDE 0.9% 1,000 ML ONE (15:57)
--- NOTE | 2022-03-26 17:14 | RAD REPORT ---
EXAM DESCRIPTION: CT - Head Brain Wo Cont - 03/26/2022 5:06 pm CLINICAL HISTORY: Headache COMPARISON: 2013 TECHNIQUE: Computed axial tomography of the head was obtained. IV contrast was not requested. All CT scans are performed using dose optimization technique as appropriate and may include automated exposure control or mA/KV adjustment according to patient size. FINDINGS: An intracranial bleed is not seen . The ventricles are normal in caliber. No significant hypodense areas within the brain visualized No extra-axial fluid collection is noted. Fluid within the sinuses/ mastoids is not seen. A mucus retention cyst right maxillary sinus IMPRESSION: No acute intracranial abnormality is seen. If patient's symptoms persist MRI of the bra in would be recommended.
[2022-03-26] MEDS ORDERED: HALOPERIDOL LACT 5 MG/ML INJ ONE (17:33)
--- NOTE | 2022-03-26 17:38 | ER ---
Nurse's Notes [facility] Name: Brandy Olivia Age: 31 yrs Sex: Female : 1990 Arrival Date: 03/26/2022 Time: 14:55 Bed 18 Private MD: Diagnosis: Headache Presentation: 03/26 15:11 Chief complaint: Patient states: REPORTS A HEADACHE SINCE MONDAY AT 3 AM, HAS BEEN HERE [facility] THIS WEEK AND IT NUNEZ NOT RESOLVED. Coronavirus screen: Vaccine status: Patient reports receiving the 2nd dose of the covid vaccine. headache, The client reports previous COVID testing was negative. Ebola Screen: Patient negative for fever greater than or equal to 101.5 degrees Fahrenheit, and additional compatible Ebola Virus Disease symptoms. Initial Sepsis Screen: Does the patient meet any 2 criteria? No. Patient's initial sepsis screen is negative. Does the patient have a suspected source of infection? No. Patient's initial sepsis screen is negative. Risk Assessment: Do you want to hurt yourself or someone else? Patient reports no desire to harm self or others. Onset of symptoms was March 21, 2022. 15:11 Method Of Arrival: Ambulatory [facility] 15:11 Acuity: ARIN 3 [facility] Triage Assessment: 15:14 Headache History: The patient has had previous headaches and this one is more severe [facility] than previous episodes. General: Appears uncomfortable, Behavior is calm, cooperative, appropriate for age. Pain: Complains of pain in face Pain radiates to NECK, BACK AND LEGS Pain currently is 10 out of 10 on a pain scale. Pain began WEEK AGO Also complains of nausea, sleeplessness. Neuro: No deficits noted. 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 - Social history:: Smoking status: Patient denies any tobacco usage or history of. - Family history:: not pertinent. - Hospitalizations: : No recent hospitalization is reported. Screenin:42 Abuse screen: Denies threats or abuse. Nutritional screening: No deficits noted. tw2 Tuberculosis screening: No symptoms or risk factors identified. Fall Risk None identified. Assessment: 15:37 Reassessment: provider at bedside at this time. tw2 16:30 Reassessment: Patient appears in no apparent distress at this time. Patient and/or tw2 family updated on plan of care and expected duration. Pain level reassessed. Patient is alert, oriented x 3, equal unlabored respirations, skin warm/dry/pink. Patient states feeling better. Patient states symptoms have improved. 17:02 Reassessment: pt in CT at this time. tw2 17:11 Reassessment: pt back from imaging at this time. pt c/o nauseousness and pain, provider tw2 notified. 18:11 Reassessment: Patient appears in no apparent distress at this time. Patient and/or tw2 family updated on plan of care and expected duration. Pain level reassessed. Patient is alert, oriented x 3, equal unlabored respirations, skin warm/dry/pink. Patient states feeling better. Vital Signs: 15:11 BP 134 / 93; Pulse 69; Resp 18; Temp 98.3; Pulse Ox 100% on R/A; Weight 86.18 kg (R); 1 Height 5 ft. 2 in. (157.48 cm); Pain 10/10; 16:30 BP 122 / 81; Pulse 77; Resp 17; Pulse Ox 97% on R/A; tw2 18:11 BP 138 / 86; Pulse 60; Resp 17; Pulse Ox 97% on R/A; tw2 15:11 Body Mass Index 34.75 (86.18 kg, 157.48 cm) 1 [place] Coma Score: 17:36 Eye Response: spontaneous(4). Verbal Response: oriented(5). Motor Response: obeys rn commands(6). Total: 15. ED Course: 14:55 Patient arrived in ED. am2 15:13 Triage completed. bh1 15:14 Arm band placed on right wrist. bh1 15:36 Sonido Fisher MD is Attending Physician. rn 15:37 Bed in low position. Call light in reach. tw2 15:38 Leandra Mishra RN is Primary Nurse. tw2 16:10 Inserted saline lock: 22 gauge in left antecubital area, using aseptic technique. Blood tw2 collected. 17:07 CT Head Brain wo Cont In Process Unspecified. EDMS 17:37 Alec Ray MD is Referral Physician. rn 18:10 Awaiting: completion of IV fluids PRIOR to discharge. tw2 18:51 No provider procedures requiring assistance completed. tw2 18:51 IV discontinued, intact, bleeding controlled, No redness/swelling at site. Pressure tw2 dressing applied. Administered Medications: 16:10 Drug: NS 0.9% 1000 ml Route: IV; Rate: 1000 ml; Site: left antecubital; tw2 18:50 Follow up: Response: No adverse reaction; IV Status: Completed infusion; IV Intake: tw2 1000ml 16:10 Drug: Phenergan (promethazine) 12.5 mg Route: IVP; Site: left antecubital; tw2 17:31 Follow up: Response: No adverse reaction tw2 16:13 Drug: Demerol (meperidine) 50 mg Route: IVP; Site: left antecubital; tw2 17:31 Follow up: Response: (VIS) Vaccine information sheet provided today. Questions and/or tw2 concerns addressed. VIS edition date: Apr 23, 2021.; Pain is decreased; RASS: Alert and Calm (0) 16:17 Drug: Decadron - Dexamethasone 10 mg Route: IVP; Site: left antecubital; tw2 17:31 Follow up: Response: No adverse reaction tw2 17:31 Drug: HALdol (haloperidol) 2.5 mg Route: IVP; Site: left antecubital; tw2 18:39 Follow up: Response: No adverse reaction; Nausea is decreased tw2 Medication: 17:04 VIS not applicable for this client. tw2 Intake: 18:50 IV: 1000ml; Total: 1000ml. tw2 Outcome: 17:37 Discharge ordered by . rn 18:51 Discharged to home ambulatory. tw2 18:51 Condition: stable 18:51 Discharge instructions given to patient, Instructed on discharge instructions, follow up and referral plans. Demonstrated understanding of instructions, follow-up care. 18:51 Patient left the ED. tw2 Signatures: Dispatcher [employer] EDMS Sonido Fisher MD MD rn Wise, Tara, RN RN tw2 Dana Yusuf 2 Rosaline Gabriel RN RN 1 Corrections: (The following items were deleted from the chart) 17:11 17:04 Reassessment: Patient appears in no apparent distress at this time. Patient tw2 and/or family updated on plan of care and expected duration. Pain level reassessed. Patient is alert, oriented x 3, equal unlabored respirations, skin warm/dry/pink. Patient states feeling better. Patient states symptoms have improved. tw2
--- NOTE | 2022-03-26 17:39 | EDPHYS ---
Physician Documentation [facility] Name: Brandy Olivia Age: 31 yrs Sex: Female : 1990 Arrival Date: 03/26/2022 Time: 14:55 Bed 18 Private MD: ED Physician Sonido Fisher HPI: 03/26 16:53 This 31 yrs old Female presents to ER via Ambulatory with complaints of Headache. rn 16:53 The patient complains of pain to the top of head and forehead. The patient describes rn the headache as aching. Onset: The symptoms/episode began/occurred 5 day(s) ago. Associated signs and symptoms: Pertinent positives: nausea, Pertinent negatives: altered mental status, fever, rash, vision changes, vision loss, vertigo. Severity of symptoms: At its worst the pain was moderate, in the emergency department the pain is unchanged. Headache History: The patient has had previous headaches and this one is more severe than previous episodes. The symptoms are alleviated by nothing. the symptoms are aggravated by lights, noise. The patient has experienced a previous episode. The patient has been recently seen at the [facility] Emergency Department. This is 3rd visit to this ER for headache, has been present for 5 days, states pain goes away in ER but returns. NO trauma. No fever. NO neck stiffness. No focal neuro complaint. + hx of migraines when younger but none recently. No famhx of brain cancer or tumor. . 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 - Social history:: Smoking status: Patient denies any tobacco usage or history of. - Family history:: not pertinent. - Hospitalizations: : No recent hospitalization is reported. ROS: 16:53 Constitutional: Negative for fever, chills, and weight loss, Eyes: Negative for injury, rn pain, redness, and discharge, ENT: Negative for injury, pain, and discharge, Neck: Negative for injury, pain, and swelling, Cardiovascular: Negative for chest pain, palpitations, and edema, Respiratory: Negative for shortness of breath, cough, wheezing, and pleuritic chest pain, Abdomen/GI: + nausea Back: Negative for injury and pain, MS/Extremity: Negative for injury and deformity, Skin: Negative for injury, rash, and discoloration, Neuro: + headache Exam: 16:53 Constitutional: This is a well developed, well nourished patient who is awake, alert, rn and in no acute distress. Ambulatory to room without difficulty or assistance. Head/Face: Normocephalic, atraumatic. Eyes: Pupils equal round and reactive to light, extra-ocular motions intact. Neck: Trachea midline, no masses palpated, and no cervical lymphadenopathy. Supple, full range of motion without nuchal rigidity. No Meningismus. Cardiovascular: Regular rate and rhythm. No pulse deficits. Respiratory: No increased work of breathing, no retractions or nasal flaring. Skin: Warm, dry with normal turgor. Normal color with no rashes, no lesions, and no evidence of cellulitis. MS/ Extremity: Pulses equal, no cyanosis. Neurovascular intact. Full, normal range of motion. Equal circumference. Neuro: Awake and alert, GCS 15, oriented to person, place, time, and situation. Motor strength 5/5 in all extremities. Sensory grossly intact. Cerebellar exam normal. Normal gait. Vital Signs: 15:11 BP 134 / 93; Pulse 69; Resp 18; Temp 98.3; Pulse Ox 100% on R/A; Weight 86.18 kg (R); bh1 Height 5 ft. 2 in. (157.48 cm); Pain 10/10; 16:30 BP 122 / 81; Pulse 77; Resp 17; Pulse Ox 97% on R/A; tw2 18:11 BP 138 / 86; Pulse 60; Resp 17; Pulse Ox 97% on R/A; tw2 15:11 Body Mass Index 34.75 (86.18 kg, 157.48 cm) 1 Norah Coma Score: 17:36 Eye Response: spontaneous(4). Verbal Response: oriented(5). Motor Response: obeys rn commands(6). Total: 15. MDM: 15:37 Patient medically screened. rn 17:36 Differential diagnosis: cluster headache, hypertensive headache, intracerebral rn hemorrhage, migraine, neoplasm, tension headache, vasomotor headache. Data reviewed: vital signs, nurses notes, old medical records, radiologic studies, CT scan, and as a result, I will discharge patient. Counseling: I had a detailed discussion with the patient and/or guardian regarding: the historical points, exam findings, and any diagnostic results supporting the discharge/admit diagnosis, radiology results, the need for outpatient follow up, to return to the emergency department if symptoms worsen or persist or if there are any questions or concerns that arise at home. Response to treatment: the patient's symptoms have mildly improved after treatment, and as a result, I will discharge patient. Special discussion: I discussed with the patient/guardian in detail that at this point there is no indication for admission to the hospital. It is understood, however, that if the symptoms persist or worsen the patient needs to return immediately for re-evaluation. Based on the history and exam findings, there is no indication for further emergent testing or inpatient evaluation. I discussed with the patient/guardian the need to see the neurologist for further evaluation of the symptoms. 18:02 ED course: Told patient to get ride home.. rn 03/26 16:25 Order name: CT Head Brain wo Cont; Complete Time: 17:15 rn 03/26 15:46 Order name: IV Start; Complete Time: 16:19 rn Administered Medications: 16:10 Drug: NS 0.9% 1000 ml Route: IV; Rate: 1000 ml; Site: left antecubital; tw2 18:50 Follow up: Response: No adverse reaction; IV Status: Completed infusion; IV Intake: tw2 1000ml 16:10 Drug: Phenergan (promethazine) 12.5 mg Route: IVP; Site: left antecubital; tw2 17:31 Follow up: Response: No adverse reaction tw2 16:13 Drug: Demerol (meperidine) 50 mg Route: IVP; Site: left antecubital; tw2 17:31 Follow up: Response: (VIS) Vaccine information sheet provided today. Questions and/or tw2 concerns addressed. VIS edition date: Apr 23, 2021.; Pain is decreased; RASS: Alert and Calm (0) 16:17 Drug: Decadron - Dexamethasone 10 mg Route: IVP; Site: left antecubital; tw2 17:31 Follow up: Response: No adverse reaction tw2 17:31 Drug: HALdol (haloperidol) 2.5 mg Route: IVP; Site: left antecubital; tw2 18:39 Follow up: Response: No adverse reaction; Nausea is decreased tw2 Disposition Summary: 03/26/22 17:37 Discharge Ordered Location: Home rn Problem: new rn Symptoms: have improved rn Condition: Stable rn Diagnosis - Headache rn Followup: rn - With: Alec Ray MD - When: As needed - Reason: Recheck today's complaints, Re-evaluation by your physician Discharge Instructions: - Discharge Summary Sheet rn - General Headache Without Cause rn Forms: - Medication Reconciliation Form rn - Thank You Letter rn - 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
[2022-03-26 19:26] VITALS: TEMP 98.3
[2022-03-26 19:27] VITALS: O2SAT 97
[2022-03-26 19:29] VITALS: BP 138/86
== END 2022-03-26 18:51 | disposition home or self-care (01) ==
LOC: ER 14:51
DX: R51.9 Headache, unspecified (principal); R11.0 Nausea
CPT/HCPCS: 70450; J1630; J2550; J1100; J2175; J7030; 96361; 96374; 96375; 99284

== ENCOUNTER → 2023-11-28 | Emergency (ER) | payer OTHER, SELFPAY ==
[~2023-11-28] MED LIST: MORPHINE 4 MG/ML SYR ONE; NA CHLORIDE 0.9% 1,000 ML ONE; ONDANSETRON 4 MG/2 ML VIAL ONE
--- OUTSIDE RECORDS SUMMARY | 2023-11-28 16:23 | XMS REPORT | Continuity of Care Document ---
Author Name Unknown Address [address] [facility]. [address] [place] [address] [facility] thconnect Address [address] [facility] [address] [place] [address] Care Team Providers Care Compliance Program Manager Name Role Phone Jordana Comer Attending Clinician Unavailable Karen Mae Attending Clinician Unavaila ble GC_LMG_Ly_E Attending Clinician Unavailable Visit, [facility] Nurse Attending Clinician Unava ilGreta Huggins Attending Clinician + Doctor Unassigned, [place] Attending Clinician U navailJordana Chavira Admitting Clinician Unavailable Karen Mae Admitting Clinician Unavaila ble GC_LMG_Ly_E Admitting Clinician Unavailable Payers Payer Name Policy Type Policy Number Effective Date Expirati on Date Source [facility] [employer] [facility] (MEDICAID REPLACEMENT - HMO) [id number] Problems Condition Name Condition Details Condition Category Status Onset Date Resolution Date Last Treatment Date Treating Clinician Comments Source No known active problems No known active problems Disease [facility] Allergies, Adverse Reactions, Alerts Allergy Name Allergy Type Status Severity Reaction(s) Onset Date Inactive Date Treating Clinician Comments Source No Known Drug Allergie s DA Active U 05-27 00:00: 00 [facility] No Known Drug Allergie s DA Active U 05-27 00:00: 00 [facility] Social History Social Habit Start Date Stop Date Quantity Comments Source History of tobacco use Cigarette Smoker [facility] Sex Assigned At [facility] Cigarettes smoked current (pack per day) - Reported 2019-10-30 00:00:00 2019-10-30 00:00:00 [facility] Cigarette pack-years 2019-10-30 00:00:00 2019-10-30 00:00:00 [facility] Alcohol intake 2019-10-30 00:00:00 2019-10-30 00:00:00 [facility] Alcohol Comment 2017-05-06 00:00:00 2017-05-06 00:00:00 socially [facility] Smoking Status Start Date Stop Date Source Current every day smoker 2019-10-30 00:00:00 [facility] Medications Ordered Medication Name Filled Medication Name Start Date Stop Date Current Medication? Ordering Clinician Indication Dosage Frequency Signature (SIG) Comments Components Source buPROPion SR (WELLBUTRIN SR) 150 mg SR tablet 04-29 16:58: 11 Yes 150mg Take 150 mg by mouth 2 (two) times daily. [facility] busPIRone 10 mg tablet 04-29 16:58: 11 Yes 10mg Take 10 mg by mouth 2 (two) times daily. [facility] buPROPion SR (WELLBUTRIN SR) 150 mg SR tablet 04-29 16:58: 11 Yes 150mg Take 150 mg by mouth 2 (two) times daily. [facility] busPIRone 10 mg tablet 04-29 16:58: 11 Yes 10mg Take 10 mg by mouth 2 (two) times daily. [facility] Vital Signs Vital Name Observation Time Observation Value Comments S sabinorojelio Systolic blood pressure 2019-10-30 15:04:00 126 mm[Hg] [facility] Diastolic blood pressure 2019-10-30 15:04:00 86 mm[Hg] [facility] Heart rate 2019-10-30 15:04:00 67 /min [facility] Body temperature 2019-10-30 15:04:00 36.5 Ly [facility] Respiratory rate 2019-10-30 15:04:00 16 /min [facility] Body height 2019-10-30 15:04:00 157.5 cm [facility] Body weight 2019-10-30 15:04:00 91.315 kg [facility] BMI 2019-10-30 15:04:00 36.82 kg/m2 [facility] Systolic blood pressure 2019-10-30 15:04:00 126 mm[Hg] [facility] Diastolic blood pressure 2019-10-30 15:04:00 86 mm[Hg] [facility] Heart rate 2019-10-30 15:04:00 67 [facility] temperature 2019-10-30 15:04:00 36.5 Ly [facility] Respiratory rate 2019-10-30 15:04:00 16 /min [facility] Body height 2019-10-30 15:04:00 157.5 cm [facility] Body weight 2019-10-30 15:04:00 91.315 kg [facility] BMI 2019-10-30 15:04:00 36.82 kg/m2 [facility] Procedures Procedure Date / Time Performed Performing Clinicia n Source [id number] 2020-06-02 00:00:00 PURHE [facility] POCT TEST 2019-10-30 15:19:00 Dav Smith [facility] ASSIGNMENT OF BENEFITS 2019-10-30 14:15:55 Docto r Unassigned, [place] [facility] Encounters Start Date/Time End Date/Time Encounter Type Admission Type Attending Clinicians Care Facility Care Department Encounter ID Source 2020-06-10 08:30:00 Inpatient Jordana Park [facility] [id number] [facility] 2020-06-03 00:49:00 Inpatient Karen Love [facility] [id number] [facility] 2020-05-27 14:21:00 Inpatient Karen Love [facility] [id number] [facility] 2021-09-28 07:02:00 2021-09-28 07:02:00 Outpatient GC_LMG_Ly_E PRIV PRIV [id number] [facility] 2021-08-03 11:26:00 2021-08-03 11:26:00 Outpatient GC_LMG_Ly_E [facility] [id number] [facility] 2019-10-30 08:54:48 2019-10-30 09:23:28 [facility] Greta Smith [facility] [id number] [facility] 2019-10-30 08:54:48 2019-10-30 09:23:28 [facility] [id number] 2019-10-30 00:00:00 2019-10-30 00:00:00 Orders Only Doctor Unassigned, [place] [facility] [id number] [facility] 2019-10-30 00:00:00 2019-10-30 00:00:00 Orders Only Doctor Unassigned, [place] [id number] Results Test Description Test Time Test Comments Results Result Co mments Source PLACENTA THIRD [id number] 09:15:00 RUN DATE: 06/11/20 [facility] PAGE 1 RUN TIME: 1313 Specimen Inquiry RUN USER: INTERFACE -------- ----PATIENT: BRAND[facility] #: [id number] AGE/SX: ROOM: 2016 RE06/03/20REG DR: Karen Mae MD : 88 BED: A DIS: 06/06/20 STATUS: DIS IN TLOC: SPEC #: [id number] RECD: 06/02/20-913 STATUS: ANDREINA MARANDA #: [id number] LARA: 06/02/20- SUBM DR: Karen Mae MD ENTERED: 06/03/20 SP TYPE: PLACIII OTHR DR: ORDERED: LEVEL V SURGICA CODES: [id number] - PLACENTA, NOS PROCEDURES: LEVEL V SURGICA (Incomplete) TISSUES: PLACENTA, NOS - PLACENTA CLINICAL HISTORY 30 year old, 34.5 weeks, section, mild pre-eclampsia, twins (kr) FINAL DIAGNOSIS Placenta, twin gestation (34.5 weeks): - monochorionic diamnionic - combined placental weight: actual 805 gm/expected 727 gm (50th to 75th percentile) Placenta A (1 cord clamp): - third trimester villous architecture - no inflammation of umbilical cord or membranes - patchy increase in perivillous fibrinoid - umbilical cord: insertion 2 cm from margin, 3-vessel, 15 cm length - actual placental weight: actual 465 gm Placenta B (2 cord clamps): - third trimester villous architecture - no inflammation of umbilical cord or membranes - umbilical cord: velamentous insertion, 3-vessel, 15 cm length - actualplacental weight: actual 340 gm CPT code(s): 15027 x2 cds/kr GROSS DESCRIPTION The specimen is received in a formalin-filled container, labeled with the patient's name and designated "placenta, twins". The specimen consists of a single placental disk with two attached umbilical cords and a cortes-pinksemi- translucent dividing membrane. The placenta with one cord clamp is designated Placenta A and the one with two cord clamps as Placenta B. CONTINUED ON NEXT PAGE RUN DATE: 06/11/20 [facility] PAGE 2 RUN TIME: 1313 Specimen Inquiry RUN USER: INTERFACE SPEC #: [id number] PATIENT: BRANDY TAVARES#[id number] (Continued) GROSS DESCRIPTION (Continued) PLACENTA A Cord insertion: 2 cm from margin Cord length: 15 cm Number of vessels: 3 Cord color: Cortes-white Other cord findings: None surface findings: Blue-purple, wrinkled, glistening and disrupted Vasculature: Displays unremarkable blood vasculature Membranes rupture site: Undetermined Membrane color: Cortes-pink Other membrane findings: Semi-translucent and disrupted The trimmed placental weight: 465 gm Disk measurement: 20 x 14 x 4 cm in greatest dimension Accessory lobes: None Maternal surface: Lobulated and disrupted, completeness cannotbe determined Parenchyma: Red-brown and spongy Parenchyma lesions: None Cassettes: A1 through A4 PLACENTA B Cord insertion: Velamentous insertion Cord length: 15 cm Number of vessels: 3 Cord color:Cortes-white Other cord findings: None surface findings: Blue-purple, wrinkled, glistening and disrupted Vasculature: Displays unremarkable blood vasculature Membranes rupture site: Undetermined Membrane color: Cortes-pink Other membrane findings: Semi-translucent and disrupted The trimmed placental weight: 340 gm Disk measurement: 20 x 9 x 4 cm in greatest dimension Accessory lobes: None Maternal surface: Lobulated and disrupted, completeness cannot be determined Parenchyma: Red-brown and spongy Parenchyma lesions: None Cassettes: A5 - dividing membrane and T-zone, A6 through A9 - placenta B isabella 06/03/20 Signed Dave Dodd 06/11/20 0915 END OF REPORT [facility] [id number] 10:01:00* Test Item Value Reference Range Interpretation Comme nts HEMOGLOBIN (test code = HGB) 11.4 g/dL 10.7-13.9 N HEMATOCRIT (test code = HCT) 36.0 % 32.1-42.1 N CAPILLARY BLOOD [id number] 23:49:00* Test Item Value Reference Range Interpretation Comme [facility] CAPILLARY BLOOD GAS PH (test code = PHC) 7.196 7.35-7.45 L CAPILLARY BLOOD GAS PCO2 (te st code = PCO2C) 49.5 mmHg CAPILLARY BLOOD GAS PO2 (yamileth t code = PO2C) 22.9 mmHg CBG HCO3 (test code = HCO3C) 18.7 meq/L CBG BASE EXCESS (test code = BEC) -9.5 CBG O2 SATURATION (test code = SATC) 29.2 % CAPILLARY BLOOD GAS TYPE (te st code = TYPEC) CBLV CAPILLARY BLOOD GAS FIO2 (te st code = FIO2C) 21.0 % CAPILLARY BLOOD [id number] 23:49:00* Test Item Value Reference Range Interpretation Comme [facility] CAPILLARY BLOOD GAS PH (test code = PHC) 7.116 7.35-7.45 LL CAPILLARY BLOOD GAS PCO2 (te st code = PCO2C) 65.0 mmHg CAPILLARY BLOOD GAS PO2 (yamileth t code = PO2C) 19.4 mmHg CBG HCO3 (test code = HCO3C) 20.5 meq/L CBG BASE EXCESS (test code = BEC) -10.0 CBG O2 SATURATION (test code = SATC) 18.9 % CAPILLARY BLOOD GAS TYPE (te st code = TYPEC) CBLA CAPILLARY BLOOD GAS FIO2 (te st code = FIO2C) 21.0 % CAPILLARY BLOOD [id number] 23:47:00* Test Item Value Reference Range Interpretation Comme [facility] CAPILLARY BLOOD GAS PH (test code = PHC) 7.289 7.35-7.45 L CAPILLARY BLOOD GAS PCO2 (te st code = PCO2C) 46.9 mmHg CAPILLARY BLOOD GAS PO2 (yamileth t code = PO2C) 15.1 mmHg CBG HCO3 (test code = HCO3C) 22.0 meq/L CBG BASE EXCESS (test code = BEC) -4.8 CBG O2 SATURATION (test code = SATC) 16.5 % CAPILLARY BLOOD GAS TYPE (te st code = TYPEC) CBLV CAPILLARY BLOOD GAS FIO2 (te st code = FIO2C) 21.0 % CAPILLARY BLOOD [id number] 23:46:00* Test Item Value Reference Range Interpretation Comme nts CAPILLARY BLOOD GAS PH (test code = PHC) 7.202 7.35-7.45 L CAPILLARY BLOOD GAS PCO2 (te st code = PCO2C) 62.4 mmHg CBG HCO3 (test code = HCO3C) 24.0 meq/L CBG BASE EXCESS (test code = BEC) -5.2 CAPILLARY BLOOD GAS TYPE (te st code = TYPEC) CBLA CAPILLARY BLOOD GAS FIO2 (te st code = FIO2C) 21.0 % COMPREHENSIVE METABOLIC [id number] 17:38:00* Test Item Value Reference Range Interpretation Comme nts SODIUM (test code = NA) 136 mEq/L 135-145 N POTASSIUM (test code = K) 4.3 mEq/L 3.5-5.0 N CHLORIDE (test code = CL) 103 mEq/L 100-115 N CARBON DIOXIDE (test code = CO2) 20 mEq/L 22-31 L ANION GAP (test code = GAP) 16.90 10-20 N GLUCOSE (test code = GLU) 106 mg/dL 65-110 N BLOOD UREA NITROGEN (test co de = BUN) 7 mg/dL 7-18 N GLOMERULAR FILTRATION RATE ( test code = GFR) 117 ml/min >60 N CREATININE (test code = CREAT) 0.6 mg/dL 0.5-1.0 N TOTAL PROTEIN (test code = PROT) 5.7 gm/dL 6.3-8.2 L ALBUMIN (test code = ALB) 2.3 gm/dL 3.4-4.8 L CALCIUM (test code = CA) 8.5 mg/dL 8.4-10.2 N BILIRUBIN TOTAL (test code = BILT) 0.4 mg/dL 0.2-1.0 N SGOT/AST (test code = AST) 13 units/L 15-37 L SGPT/ALT (test code = ALT) 14 units/L 12-78 N ALKALINE PHOSPHATASE TOTAL ( test code = ALKP) 231 units/L 46-116 H URIC [id number] 17:38:00* Test Item Value Reference Range Interpretation Comme nts URIC ACID (test code = URIC) 4.3 mg/dL 2.6-6.0 N LACTIC DEHYDROGENASE(LDH)2020-06-02 17:38:00* Test Item Value Reference Range Interpretation Comme nts LACTIC DEHYDROGENASE(LDH) (t est code = LDH) 140 units/L 81-234 N COVID 19 Asymptomatic IH [id number] 17:30:00* Test Item Value Reference Range Interpretation Comme nts COVID 19 Asymptomatic IH AG (test code = COVNONPUIAG) NEGATIVE NEGATIVE This test has be en authorized only for the detection ofproteins from SARS-CoV-2, not for any other viruses orpathogens. Negative results should be treated as presumptive andconfirmed with a molecular assay, if necessary for patientmanagement. Negative results do not rule out COVID-19 andshould not be used as the sole basis for treatment orpatient management decisions, including infection controldecisions. Negative results should be considered in thecontext of a patient's recent exposures, history and thepresence of clinical signs and symptoms consistent withCOVID-19. This test has not been FDA cleared or approved; the test hasbeen authorized by FDA under an Emergency Use Authorization(EUA) for use by laboratories certified under the CLIA thatmeet the requirements to perform moderate, high or waivedcomplexity tests. This test is authorized for use at thePoint of Care (POC), i.e., in patient care settingsoperating under a CLIA Certificate of Waiver, Certificate ofCompliance, or Certificate of Accreditation. This test is only authorized for the duration of thedeclaration that circumstances exist justifying theauthorization of emergency use of in vitro diagnostic testsfor detection and/or diagnosis of COVID-19 under Hhbvtqh090(b)(1) of the Act, 21 U.S.C. 360bbb-3(b)(1), unless theauthorization is terminated or revoked sooner. CBC W/AUTO [id number] 17:18:00* Test Item Value Reference Range Interpretation Comme nts WHITE BLOOD CELL (test code = WBC) 11.6 K/mm3 6.6-12.1 N RED BLOOD CELL (test code = RBC) 3.98 M/mm3 3.45-5.01 N HEMOGLOBIN (test code = HGB) 12.7 g/dL 10.7-13.9 N HEMATOCRIT (test code = HCT) 38.4 % 32.1-42.1 N MEAN CELL VOLUME (test code = MCV) 97 fL 84.1-94.8 H MEAN CELL HGB (test code = MCH) 31.9 pg 27-35 N MEAN CELL HGB CONCETRATION ( test code = MCHC) 33.1 gm/dL 32.2-34.1 N RED CELL DISTRIBUTION WIDTH (test code = RDW) 14.6 % 12.4-16.5 N PLATELET COUNT (test code = PLT) 172 K/mm3 133-385 N MEAN PLATELET VOLUME (test c ode = MPV) 12.2 fl 9.1-12.7 N NEUTROPHIL % (test code = NT%) 59.5 % 56.5-79.4 N LYMPHOCYTE % (test code = LY%) 26.3 % 14.3-34.3 N MONOCYTE % (test code = MO%) 9.2 % 5.1-10.4 N EOSINOPHIL % (test code = EO%) 0.4 % 0.1-3.0 N BASOPHIL % (test code = BA%) 0.3 % 0.1-1.0 N NEUTROPHIL # (test code = NT#) 6.9 K/mm3 LYMPHOCYTE # (test code = LY#) 3.0 K/mm3 MONOCYTE # (test code = MO#) 1.1 K/mm3 EOSINOPHIL # (test code = EO#) 0.05 K/mm3 BASOPHIL # (test code = BA#) 0.0 K/mm3 RBC MORPHOLOGY REQUIRED (yamileth t code = RBCM) NORMAL NORMAL PLATELET MORPHOLOGY REQUIRED (test code = PLTMR) NORMAL NORMAL UR PROTEIN/CREATININE [id number] 01:17:00* Test Item Value Reference Range Interpretation Comme nts UR PROTEIN RANDOM (test code = PROTU) 13.4 mg/dL UR CREATININE RANDOM (test code = CREATU) 42.9 mg/dL PROTEIN/CREATININE RATIO (te st code = P/CRATIO) 310.0 mg/gcrea <200 H AG HEPATITIS B [id number] 20:07:00* Test Item Value Reference Range Interpretation Comme nts AG HEPATITIS B SURFACE (test code = HBSAG) NONREACTIVE NONREACTIVE AB HEPATITIS C [id number] 20:07:00* Test Item Value Reference Range Interpretation Comme nts AB HEPATITIS C (test code = HCVAB) NONREACTIVE NONREACTIVE SIGNAL TO CUTOFF (test code = CUTOFF) 0.23 <0.80 N AB [id number] 20:07:00* Test Item Value Reference Range Interpretation Comme nts AB TREPONEMA (test code = TREPAB) NONREACTIVE NONREACTIVE AB HIV 1 20:07:00* Test Item Value Reference Range Interpretation Comme nts AB HIV 1 2 (test code = [id number]) NONREACTIVE NONREACTIVE Done by [employer] HIV Ag/Ab Combo Screen AG HEPATITIS B [id number] 18:42:00* Test Item Value Reference Range Interpretation Comme nts AG HEPATITIS B SURFACE (test code = HBSAG) NONREACTIVE NONREACTIVE AB HEPATITIS C [id number] 18:42:00* Test Item Value Reference Range Interpretation Comme nts AB HEPATITIS C (test code = HCVAB) NONREACTIVE SIGNAL TO CUTOFF (test code = CUTOFF) <0.80 AB [id number] 18:42:00* Test Item Value Reference Range Interpretation Comme nts AB TREPONEMA (test code = TREPAB) NONREACTIVE NONREACTIVE AB HIV 1 18:42:00* Test Item Value Reference Range Interpretation Comme nts AB HIV 1 2 (test code = [id number]) NONREACTIVE AG HEPATITIS B [id number] 18:25:00* Test Item Value Reference Range Interpretation Comme nts AG HEPATITIS B SURFACE (test code = HBSAG) NONREACTIVE AB HEPATITIS C [id number] 18:25:00* Test Item Value Reference Range Interpretation Comme nts AB HEPATITIS C (test code = HCVAB) NONREACTIVE SIGNAL TO CUTOFF (test code = CUTOFF) <0.80 AB [id number] 18:25:00* Test Item Value Reference Range Interpretation Comme nts AB TREPONEMA (test code = TREPAB) NONREACTIVE NONREACTIVE AB HIV 1 18:25:00* Test Item Value Reference Range Interpretation Comme nts AB HIV 1 2 (test code = [id number]) NONREACTIVE COMPREHENSIVE METABOLIC [id number] 18:08:00* Test Item Value Reference Range Interpretation Comme nts SODIUM (test code = NA) 138 mEq/L 135-145 N POTASSIUM (test code = K) 4.0 mEq/L 3.5-5.0 N CHLORIDE (test code = CL) 104 mEq/L 100-115 N CARBON DIOXIDE (test code = CO2) 21 mEq/L 22-31 L ANION GAP (test code = GAP) 17.50 10-20 N GLUCOSE (test code = GLU) 71 mg/dL 65-110 N BLOOD UREA NITROGEN (test co de = BUN) 3 mg/dL 7-18 L GLOMERULAR FILTRATION RATE ( test code = GFR) 117 ml/min >60 N CREATININE (test code = CREAT) 0.6 mg/dL 0.5-1.0 N TOTAL PROTEIN (test code = PROT) 5.9 gm/dL 6.3-8.2 L ALBUMIN (test code = ALB) 2.4 gm/dL 3.4-4.8 L CALCIUM (test code = CA) 8.6 mg/dL 8.4-10.2 N BILIRUBIN TOTAL (test code = BILT) 0.5 mg/dL 0.2-1.0 N SGOT/AST (test code = AST) 17 units/L 15-37 N SGPT/ALT (test code = ALT) 19 units/L 12-78 N ALKALINE PHOSPHATASE TOTAL ( test code = ALKP) 222 units/L 46-116 H URIC [id number] 18:08:00* Test Item Value Reference Range Interpretation Comme nts URIC ACID (test code = URIC) 4.5 mg/dL 2.6-6.0 N LACTIC DEHYDROGENASE(LDH)2020-05-27 18:08:00* Test Item Value Reference Range Interpretation Comme nts LACTIC DEHYDROGENASE(LDH) (t est code = LDH) 141 units/L 81-234 N CBC W/AUTO [id number] 17:22:00* Test Item Value Reference Range Interpretation Comme nts WHITE BLOOD CELL (test code = WBC) 10.9 K/mm3 6.6-12.1 N RED BLOOD CELL (test code = RBC) 4.05 M/mm3 3.45-5.01 N HEMOGLOBIN (test code = HGB) 13.0 g/dL 10.7-13.9 N HEMATOCRIT (test code = HCT) 43.2 % 32.1-42.1 H MEAN CELL VOLUME (test code = MCV) 107 fL 84.1-94.8 H MEAN CELL HGB (test code = MCH) 32.1 pg 27-35 N MEAN CELL HGB CONCETRATION ( test code = MCHC) 30.1 gm/dL 32.2-34.1 L RED CELL DISTRIBUTION WIDTH (test code = RDW) 14.7 % 12.4-16.5 N PLATELET COUNT (test code = PLT) 155 K/mm3 133-385 N IMMATURE PLATELET FRACTION ( test code = IPF) 8.1 % 0.0-10.8 N MEAN PLATELET VOLUME (test c ode = MPV) 11.8 fl 9.1-12.7 N NEUTROPHIL % (test code = NT%) 65.0 % 56.5-79.4 N LYMPHOCYTE % (test code = LY%) 21.7 % 14.3-34.3 N MONOCYTE % (test code = MO%) 8.9 % 5.1-10.4 N EOSINOPHIL % (test code = EO%) 0.6 % 0.1-3.0 N BASOPHIL % (test code = BA%) 0.6 % 0.1-1.0 N NEUTROPHIL # (test code = NT#) 7.1 K/mm3 LYMPHOCYTE # (test code = LY#) 2.4 K/mm3 MONOCYTE # (test code = MO#) 1.0 K/mm3 EOSINOPHIL # (test code = EO#) 0.06 K/mm3 BASOPHIL # (test code = BA#) 0.1 K/mm3 RBC MORPHOLOGY REQUIRED (yamileth t code = RBCM) NORMAL NORMAL PLATELET MORPHOLOGY REQUIRED (test code = PLTMR) NORMAL NORMAL COVID 19 Asymptomatic IH [id number] 16:12:00* Test Item Value Reference Range Interpretation Comme nts COVID 19 Asymptomatic IH AG (test code = COVNONPUIAG) NEGATIVE NEGATIVE This test has be en authorized only for the detection ofproteins from SARS-CoV-2, not for any other viruses orpathogens. Negative results should be treated as presumptive andconfirmed with a molecular assay, if necessary for patientmanagement. Negative results do not rule out COVID-19 andshould not be used as the sole basis for treatment orpatient management decisions, including infection controldecisions. Negative results should be considered in thecontext of a patient's recent exposures, history and thepresence of clinical signs and symptoms consistent withCOVID-19. This test has not been FDA cleared or approved; the test hasbeen authorized by FDA under an Emergency Use Authorization(EUA) for use by laboratories certified under the CLIA thatmeet the requirements to perform moderate, high or waivedcomplexity tests. This test is authorized for use at thePoint of Care (POC), i.e., in patient care settingsoperating under a CLIA Certificate of Waiver, Certificate ofCompliance, or Certificate of Accreditation. This test is only authorized for the duration of thedeclaration that circumstances exist justifying theauthorization of emergency use of in vitro diagnostic testsfor detection and/or diagnosis of COVID-19 under Rhirgnr519(b)(1) of the Act, 21 U.S.C. 360bbb-3(b)(1), unless theauthorization is terminated or revoked sooner. POCT [id number] 15:19:00* Test Item Value Reference Range Interpretation Comme nts POCT PREG (test code = 1605) Positive On board controls acceptable with C Line (test code = 3574) Yes POCT PREG LOT # (test code = 3575) POCT PREG TEST DATE ( test code = 3576) [facility] Notes Date/Time Note Provider Source 2020-06-06 10:10:00 [id number]:1 0:00 [facility] ([facility])OB Disch PostpartumREPORT#:[id number] REPORT STATUS: SignedDATE:06/06/20 TIME: 1010 PATIENT: BRANDY TAVARES UNIT #: [id number]#: [id number] ROOM/BED: F.2016-ADOB: [birth year] AGE: 30 SEX: F ATTEND: Karen Mae MDADM AUTHOR: Karen Mae MD * ALL edits or amendments must be made on the electronic/computer document * Subjective SubjectiveAdmission EGA (wks/days): 34 5/7 wgaEGA at delivery (wks/days): 34 5/7Status/day: post operative (day 4)Patient reports: Patient reports: Yes: normal lochia, pain management effective, tolerating po well, voiding well. No: complaints. Objective GeneralVS:Vital Signs Date Temp Pulse Resp B/P B/P Mean Pulse Ox FiO2 06/05 98.2 108 18 123/76 Last Documented: Result Date Time B/P 06/05 Temp 98.2 06/05 2350 Pulse 108 06/05 2350 Resp 18 06/05 2350 Pulse Ox 96 06/03 034 B/P Mean 100.0 06/03 0340 Patient Weight Weight (lb): 242Weight (oz): Weight (kg): 109.769 Notes:reting comfortably in bed Physical ExamBreasts: Feeding: pumping breastsLungs: breathing unlaboredNeuro: Exam: alert, oriented x3, normal speech DTR's (lower extr): briskAbdomen: post gravid, soft, no abnormal tenderness, no guardingIncision site: well approximated edges, dry, no drainage, no inflammationUterus: involution appropriate, non-tenderFundus: below the umbilicusLochia: normalLower extremities: Edema: 2+ pitting Calf tenderness: negative ResultsResults: no new labs, vital signs stable Discharge Summary Discharge SummaryFree Text A P:Doing well POD 4 s/p Primary CD for mono di TIUP @ 34 5/7 WGA. SHe is meeting all milestones, pain is now controlled, and she has a normal exam with normalized VS (had PIH in )Date of admission:Date of admission: 06/03/20 Admission diagnosis: pre-eclampsia, twins, 34 5/7 nonreassuring parameters on testing Hospital course: primary admit, epidural anesthesia, nml postop/postpart careBaby A: status: live born Gender: female 1 minute: 8 5 minutes: 8Baby B: status: live born Gender: female 1 minute: 7 5 minutes: 9Nursing data:The data set between the solid lines has been imported from nursing documentation. Any exceptions have been noted below under Provider comments. EGA (weeks/days): 34.5EGA at admit (weeks): Delivery date infant A: 06/02/20 Delivery time infant A: 2321Birthweight (gm) A: 2710Feeding preference: Gender A: FemaleApgar 1 minute A: 8Apgar 5 minutes A: 8Apgar 10 minutes A: Provider comments on imported nursing data: [] Plan: routine care, discharge todayInstructions: routine instr sheet givenDiet: regularActivity and restrictions: up ad manny, may shower, pelvic rest, no intercourse for 6 wksContraception discussed: abstinence for 4-6 weeksDischarge meds:Stop taking the following medications:valACYclovir (VALTREX) 500 MG TAB 500 MILLIGRAM ORAL DAILY. Continue taking these medications:PNV WITH FE FUMARATE/FA () 1 EACH TAB 1 TABLET ORAL DAILY. DOCUSATE SODIUM (COLACE) 100 MG CAP 100 MILLIGRAM ORAL TWICE DAILY. Prescriptions: e-prescribeRx drug database reviewed: yesConsultation(s): Consultation performed: anesthesia, neonatologistDischarge condition: stableDischarge to: homeFollow up in: 2 weeksDischarge diagnosis: twin IUP, delivered 34 5/7 WGA , preeclampsiaDischarge management: greater than 30 minsTime spent: Time spent with patient (minutes): 20 >50% spent on counseling/coordination of care: yes at 1015 RPT #:[id number] OF REPORT OBObstetric zdda5047-14-83T57:10:00F.UVDU90353836-1830TLZgnkw able for patient aprqYDABORYVBZHAPT1137-54-19Z22:15:36 [facility] 2020-06-05 14:56:00 WLwanyltvyk63946580s joXWmmcKfkbOSAHZw9yHHR0Va8Lg/ n1N33F0pR5LSNp8N3W0sR7yR/BwqzL7WYM7496-85-52R73:5 6:00 [facility] ([facility])OB Postpart Progr NoteREPORT#:[id number] REPORT STATUS: SignedDATE:06/05/20 TIME: 1456 PATIENT: BRANDY TAVARES UNIT #: [id number]#: [id number] ROOM/BED: 2016-ADOB: [birth year] AGE: 30 SEX: F ATTEND: Karen Mae MDADM AUTHOR: Karen Mae MD * ALL edits or amendments must be made on the electronic/computer document * Subjective SubjectiveAdmission EGA (wks/days): 34 5/7 wgaEGA at delivery (wks/days): 34 5/7Status/day: post operative (day 3)Comments:C/O incisional pain today, but pain meds helping. Objective Nursing Documentation ReviewNursing data:The data set between the solid lines has been imported from nursing documentation. Any exceptions have been noted below under Provider comments. Feeding preference: Provider comments on imported nursing data: [] GeneralVS:Vital Signs Date Temp Pulse Resp B/P B/P Mean Pulse Ox FiO2 06/04-06/05 98.0-98.9 84-101 - 121-136/75-83 Last Documented: Result Date Time B/P 124/82 06/05 920 Temp 98.0 06/05 09 Pulse 98 06/05 09 Resp 20 06/05 920 Pulse Ox 96 06/03 0345 B/P Mean 100.0 06/03 0340 Patient Weight Weight (lb): 242Weight (oz): Weight (kg): 109.769 Notes:resting comfortably Physical ExamBreasts: Breasts: filling Flow: colostrum Nipples: intact Feeding: pumping breastsLungs: breathing unlaboredNeuro: Exam: alert, oriented x3, normal speech DTR's (lower extr): briskAbdomen: soft, no abnormal tenderness, no guarding, no rebound tendernessIncision site: well approximated edges, no drainage, no inflammationUterus: involution appropriate, non-tenderFundus: non-tender, difficult to palpate 2/2 habitus @umbilius Lochia: normalLower extremities: Edema: 2+ pitting Calf tenderness: negative Diagnosis, Assessment Plan Diagnosis, Assessment PlanAssessment: nml progress, PIH, improvingPlan: routine care, discharge tomorrow at 1457 RPT #:[id number] OF REPORT PRProgress Yekq4968-54-95A45:56:00F.CGFY42556752-2070SLJxibj able for patient kbvdCNYJEBIKLFPDNB2079-04-23R59:57:25 [facility] 2020-06-04 13:34:00 [id number] FB3GwcW7i/PsUFFtzLzGpCLaZuhxv BTb2uTotosDLznLXUkO1G+iBJZCgXqxNcb6726-05-11A12:3 4:00 [facility] ([facility])OB Postpart Progr NoteREPORT#:[id number] REPORT STATUS: SignedDATE:06/04/20 TIME: 1334 PATIENT: BRANDY TAVARES UNIT #: [id number]#: [id number] ROOM/BED: .2016-ADOB: [birth year] AGE: 30 SEX: F ATTEND: Karen Mae AUTHOR: Karen Mae MD * ALL edits or amendments must be made on the electronic/computer document * Subjective SubjectiveAdmission EGA (wks/days): 34 5/7 wgaEGA at delivery (wks/days): 34 5/7Status/day: post operative (day 2)Patient reports: Patient reports: Yes: normal lochia, pain management effective, tolerating po well, voiding well, voiding without pain. No: complaints. Objective Nursing Documentation ReviewNursing data:The data set between the solid lines has been imported from nursing documentation. Any exceptions have been noted below under Provider comments. Feeding preference: Provider comments on imported nursing data: [] GeneralVS:Vital Signs Date Temp Pulse Resp B/P B/P Mean Pulse Ox FiO2 06/03-06/04 97.8-98.6 74-90 18-20 113-140/67-88 Last Documented: Result Date Time B/P 118/76 06/04 0744 Temp 98.0 06/04 0744 Pulse 86 06/04 0744 Resp 20 06/04 0744 Pulse Ox 96 06/03 0345 B/P Mean 100.0 06/03 0340 Patient Weight Weight (lb): 242Weight (oz): Weight (kg): 109.769 Notes:resting comfortably, no distress Physical ExamBreasts: Breasts: filling Flow: colostrum Nipples: intact Feeding: pumping breastsLungs: breathing unlaboredNeuro: Exam: alert, oriented x3, normal speech DTR's (lower extr): briskAbdomen: soft, no abnormal tenderness, no guarding, no rebound tendernessIncision site: well approximated edges, no drainage, no inflammationUterus: involution appropriate, non-tenderFundus: non-tender, difficult to palpate 2/2 habitus @umbilius Lochia: normalLower extremities: Edema: 2+ pitting Calf tenderness: negative Diagnosis, Assessment Plan Diagnosis, Assessment PlanAssessment: nml progress, PIH, improvingPlan: routine care, discharge tomorrow (vs Monday ) at 1335 [facility] #:[id number] OF REPORT PRProgress Kmnb9165-02-13O81:34:00F.VJQR55566646-8138TTFoxjo able for patient zdlxWFPKDHCHEEWRBP3061-66-59A73:36:13 [facility] 2020-06-03 13:00:00 [id number] 5oaL2njbMg13TMdMYZI+Dz3rhKcri SKfuyuWGI+eBt1r5c3aAuHxeT7JeN1cfDj8626-14-66Q06:0 0:00 [facility] ([facility])OB Postpart Progr NoteREPORT#:[id number] REPORT STATUS: SignedDATE:06/03/20 TIME: 1300 PATIENT: BRANDY TAVARES UNIT #: [id number]#: [id number] ROOM/BED: F.2016-ADOB: [birth year] AGE: 30 SEX: F ATTEND: Karen Mae MDADM AUTHOR: Karen Mae MD * ALL edits or amendments must be made on the electronic/computer document * Subjective SubjectiveEGA at delivery (wks/days): 34 5/7Status/day: post operative (day 1/2)Patient reports: Patient reports: Yes: normal lochia, pain management effective, tolerating po well, voiding well. No: complaints. Comments:labile BP's overnight, responded to labetalolInfants both in L2 NICU doing well Objective Nursing Documentation ReviewNursing data:The data set between the solid lines has been imported from nursing documentation. Any exceptions have been noted below under Provider comments. Feeding preference: Provider comments on imported nursing data: [] GeneralVS:Vital SignsDate Temp Pulse Resp B/P B/P Mean Pulse Ox HiH384/15-06/03 97.6-98.6 76-124 18-32 120-163/70-96 92.0-124.0 91-99 Last Documented: Result Date Time B/P 121/77 06/03 1152 Temp 97.8 06/03 1152 Pulse 80 06/03 1152 Resp 20 06/03 1152 Pulse Ox 96 06/03 0345 B/P Mean 100.0 06/03 0340 Patient Weight Weight (lb): 242Weight (oz): Weight (kg): 109.769 Nutrition assessment:The data set between the solid lines has been imported from the dietitian's assessment. Any exceptions have been noted under Provider comments. BMI Calculated: 44.26 Nutrition related diagnosis: Nutrition diagnosis details: Nutrition problem: Nutrition etiology: Nutrition signs and symptoms: Nutrition prescription: Dietitian name: Assessment completed: Provider comments on imported dietitian assessment: Physical ExamBreasts: Breasts: filling Flow: colostrum Nipples: intact Feeding: pumping breastsLungs: breathing unlaboredNeuro: Exam: alert, oriented x3, normal speech DTR's (lower extr): briskAbdomen: soft, no abnormal tenderness, no guarding, no rebound tendernessIncision site: well approximated edges, no drainage, no inflammationUterus: involution appropriate, non-tenderFundus: non-tender, difficult to palpate 2/2 habitus @umbilius Lochia: normalLower extremities: Edema: 2+ pitting Calf tenderness: negative ResultFindings/data:Laboratory Tests: 06/02 06/02 06/02 06/02 2344 2343 2340 2339 Blood Gas Capillary pH (7.35 - 7.45) 7.196 L 7.116 *L 7.289 L 7.202 L Capillary pCO2 (mmHg) 49.5 65.0 46.9 62.4 Capillary pO2 (mmHg) 22.9 19.4 15.1 Capillary HCO3 (meq/L) 18.7 20.5 22.0 24.0 Capillary Base Excess -9.5 -10.0 -4.8 -5.2 Capillary O2 Sat Calc (%) 29.2 18.9 16.5 Patient On Oxygen CBLV CBLA CBLV CBLA FiO2 (%) 21.0 21.0 21.0 21.0 06/02 1658 Chemistry Sodium (135 - 145 mEq/L) 136 Potassium (3.5 - 5.0 mEq/L) 4.3 Chloride (100 - 115 mEq/L) 103 Carbon Dioxide (22 - 31 mEq/L) 20 L Anion Gap (10 - 20) 16.90 BUN (7 - 18 mg/dL) 7 Creatinine (0.5 - 1.0 mg/dL) 0.6 Glomerular Filtr Rate (>60 ml/min) 117 Glucose (65 - 110 mg/dL) 106 Uric Acid (2.6 - 6.0 mg/dL) 4.3 Calcium (8.4 - 10.2 mg/dL) 8.5 Total Bilirubin (0.2 - 1.0 mg/dL) 0.4 AST (15 - 37 units/L) 13 L ALT (12 - 78 units/L) 14 Total Alk Phosphatase (46 - 116 units/L) 231 H Lactate Dehydrogenase (81 - 234 units/L) 140 Total Protein (6.3 - 8.2 gm/dL) 5.7 L Albumin (3.4 - 4.8 gm/dL) 2.3 L Hematology WBC (6.6 - 12.1 K/mm3) 11.6 RBC (3.45 - 5.01 M/mm3) 3.98 Hgb (10.7 - 13.9 g/dL) 12.7 Hct (32.1 - 42.1 %) 38.4 MCV (84.1 - 94.8 fL) 97 H MCH (27 - 35 pg) 31.9 MCHC (32.2 - 34.1 gm/dL) 33.1 RDW (12.4 - 16.5 %) 14.6 Plt Count (133 - 385 K/mm3) 172 MPV (9.1 - 12.7 fl) 12.2 Neut % (Auto) (56.5 - 79.4 %) 59.5 Lymph % (Auto) (14.3 - 34.3 %) 26.3 Mayes % (Auto) (5.1 - 10.4 %) 9.2 Eos % (Auto) (0.1 - 3.0 %) 0.4 Baso % (Auto) (0.1 - 1.0 %) 0.3 Neut # (Auto) (K/mm3) 6.9 Lymph # (Auto) (K/mm3) 3.0 Mayes # (Auto) (K/mm3) 1.1 Eos # (Auto) (K/mm3) 0.05 Baso # (Auto) (K/mm3) 0.0 Serology SARS-CoV-2 Ag (Rapid) (NEGATIVE) NEGATIVE Diagnosis, Assessment Plan Diagnosis, Assessment PlanFree text A P:30 yo s/p Primary CD for monodi TIUP @ 34 5/7 WGAPOD 1/2 doing well, no apparent surgical complicationsPIH spiked overnight, currently normotensive and asytmpomatic, will treat pressures PRN with labetalol Routine care. at 1303 RPT #:[id number] OF REPORT PRProgress Lbik3217-72-86O90:00:00F.TMES83631074-4994SKFzzjf able for patient mhksOXEPQQBTRFMGAA7892-40-79L68:03:42 [facility] 2020-06-02 23:55:00 AFxrncwypsh84839421Z RN2tJc5ObiRH4VpcZGlFWY1gq86FG Ta97emIf2GaUqv7jsY9ducN3dvoCvOMe1X4679-13-84F02:5 5:00 [facility] ([facility])OB Delivery NoteREPORT#:[id number] REPORT STATUS: SignedDATE:06/02/20 TIME: 0 PATIENT: BRANDY TAVARES UNIT #: [id number]#: [id number] ROOM/BED: [facility]-ADOB: [birth year] AGE: 30 SEX: F ATTEND: Karen Mae [facility] AUTHOR: Karen Mae MD * ALL edits or amendments must be made on the electronic/computer document * OB Delivery Pre-deliveryGBS status: GBS status: unknownMeds prior to delivery: betamethasoneNewborn evaluation at delivery: NRP certified personnelAdmission EGA (wks/days): 34 5/7 wgaEGA at delivery (wks/days): 34 5/7 Steroids Prior to DeliverySteroids prior to delivery: yes, delivery 24-34 weeks Baby A InformationBaby A information Delivery date: 06/02/20 Delivery time: 2320 status: live born Wt of baby (grams): 2710 Wt of baby (lbs/oz): 6#0oz Gender: female 1 minute: 8 5 minutes: 8 Presentation: vertexABG details Baby A Cord blood gases: collectedNuchal cord Baby A Nuchal cord: no Baby B InformationBaby B information Delivery date: 06/02/20 Delivery time: 2321 status: live born Wt of baby (grams): 2430 Wt of baby (lbs/oz): 5#6oz Gender: female 1 minute: 7 5 minutes: 9 Presentation: vertexABG details Baby B Cord blood gases: collectedNuchal cord Baby B Nuchal cord: yes (loose and reduced) DeliveryCesarean section Primary indication: abnormal cord and MCA dopplers x 2 twin Priority: indicated (add on) Antibiotic prior to incision: 1 dose )(SCDs applied activated: Yes Uterine incision: low transverse Consent: indication discussed, questions answered, pt consent to op delivery Mother's condition: mother stable Infant's condition: infant to NICU (A B to Level 2 NICU ) Op/Inv Proc Note - Brief)(Start date: 06/02/2020)( Procedure(s) performed: prim low transverse c/s)( Primary Surgeon:Karen Mae MD )( Crown And Bridge Technician(s):ALONDRA Castillo Anesthesiologist:Ulises Simon MD )( Pre-procedure diagnosis:Monochorionic diamniotic twin intrauterine pregancy at 34 5/7 WGAElevated umbilical and MCA dopplers of both fetusesMild PIH without severe symptoms )( Post-procedure diagnosis:sameAnesthesia: combined spinal/epidural)( Estimated blood loss (ml): 1000)( Specimen removed/altered: placenta, sent to patholgy)( Complications: noneFluids: 2600Urine output:50, clear light yellow urine )( Finding(s):Normal uterus, normal tubes and ovaries bilaterally, infantss as above, both delievered in cephalic presentation Condition: stable Blood Loss/DetailsBlood loss at delivery: 1000 at 0000 [facility] #:[id number] OF REPORT OBObstetric nlmi3979-56-57X61:55:00F.GAUK10619835-1915UNQnsta able for patient jutyHJSGYCPVHDRHZB3299-83-03U95:01:09 [facility] 2020-06-02 23:55:00 HIcoyvbgeeg97875288B +QWqrKlcQfBPNtFJhdAF/TR3e73fj R096EYgxKruOzRworDvFk1l4z1MxXSvo4K5977-63-28B55:5 5:[id number] [facility]'[place] [id number] PATIENT NAME: BRANDY TAVARES ADMIT DATE: 06/03/20ACCOUNT NO: [id number] ROOM NO: F.2016 AGE: 30 SEX: F ADMITTING PHYSICIAN: Karen Mae MD ATTENDING PHYSICIAN: Karen Mae MD OPERATION DATE: 06/02/2020 PROCEDURE PERFORMED: Primary lower uterine transverse section. PREOPERATIVE DIAGNOSES:1. Mayes-di twin intrauterine at 34 weeks and 5 days gestational age.2. Elevated cord blood and MCA Dopplers of both infants A and B.3. Preeclampsia, mild without severe symptoms. POSTOPERATIVE DIAGNOSES:1. Mayes-di twin intrauterine at 34 weeks and 5 days gestational age.2. Elevated cord blood and MCA Dopplers of both infants A and B.3. Preeclampsia, mild without severe symptoms. SURGEON: Karen Mae MD ANCHORER: ALONDRA Vasquez. ANESTHESIA: ESTIMATED BLOOD LOSS: 1000 mL. URINE OUTPUT: 50 mL. INTRAVENOUS FLUIDS: 2600 mL. FINDINGS: The infant A was in the cephalic presentation, clear amniotic fluidwas noted upon entry to the amniotic sac. Infant A's Apgars were 8 and 8, birthweight 2710 grams (6 pounds 0 ounces), no obvious anomalies, female . B was also in the cephalic presentation with clear amniotic fluid. Also,a girl, time 2322, Apgars 7 and 9, weight 2430 grams (5 pounds 6ounces), with a loose nuchal cord. The uterus appeared normal. The tubes andovaries appeared normal bilaterally. PROCEDURE IN DETAIL: The patient was taken to the operating room where herepidural was obtained without difficulty. She was then prepped in the dorsalsupine position with a leftward tilt. Chlorhexidine was used on her abdomen forher abdominal prep. After it was allowed to dry for 3 minutes, she wassterilely draped. Allis test was used to confirm anesthesia. Time-out washeld. A Pfannenstiel skin incision was made with the scalpel and then carrieddown to the underlying fascia using the Bovie cautery device. The fascia wasincised on either side of midline and the fascial incision was extended in acurvilinear fashion on either side. The superior aspect of the fascia was PATIENT NAME: BRANDY TAVARES grasped with Clarice clamps and elevated. The rectus abdominis muscle wasdissected off the midline of the fascia using sharp dissection. The rectusabdominis muscles were then bluntly divided. Peritoneum was identified, enteredbluntly, and bluntly divided. A bladder blade was placed. A bladder flap wascreated to protect the bladder. This was done using a combination of sharp andblunt dissection. Once the bladder had been tucked away underneath the bladderflap, the hysterotomy was made in the lower uterine segment in the transversedirection. After entry to the uterus, the hysterotomy was then manuallyextended in a Bruce maneuver. The 's amniotic sac was ruptured. Clearfluid was noted. The infant's head was grasped and the infant A was delivered. One minute after , the cord was clamped and cut and the infant was handedoff to awaiting nurses for resuscitation and evaluation. [place] [address] [place]. Cord gases were collected. B'ssac was then ruptured with an Allis clamp. Clear fluid was noted. A'shead was grasped and similarly with fundal pressure, the was deliveredthrough the hysterotomy without difficulty. A loose nuchal cord was noted. This was reduced at the time of delivery. After 1 minute, the B's cordwas clamped and cut and the was similarly handed off to nurses andneonatology team for resuscitation and evaluation. At this point, cord bloodgases were collected on infant B's umbilical cord. Aliquots of the infant A andB blood were collected for blood typing and the placenta was deliveredmanually. There was a small segment, which had to be manually extractedindependently of the uterus. It is unclear if this was a succenturiate lobe orjust a retained part of her main placenta. Ultimately, the inside of theuterus was inspected. There were no trailing membranes or placental remnantsleft. Excellent uterine tone was noted. The hysterotomy was closed using 0Vicryl on a CT-1 needle. A second imbricating layer was used for hemostasis andto reinforce the hysterotomy in case of future pregnancies. At this point, theposterior cul-de-sac and pericolic gutters were copiously irrigated and clearedof all clots and debris and the uterus was returned to the abdomen. Thehysterotomy was inspected off tension and noted to be hemostatic. Theperitoneum was then closed using 3-0 Vicryl. The rectus abdominis muscles wereplicated in the midline using 3-0 chromic. The rectus abdominis muscles wereinspected and noted to be hemostatic. The fascia was closed using 0 Vicryl on aCT-1 needle. The subcuticular tissue was then irrigated and reapproximatedusing 2-0 plain gut and the skin was closed using 4-0 Monocryl. She toleratedthe procedure well. Sponge, lap, and instrument counts were correct at the endof the procedure. Her 's disposition is level 2 for both baby A and babyB. COMPLICATIONS: There were no complications. Dictated By: Karen Mae MD WT: OP:F.CHAO/AUTUMN/NTSDD: 06/02/2020 23:55:08DT: 06/03/2020 01:45:18Conf#: [id number]/DID#: [id number] Authenticated by Karen Mae MD On 06/15/2020 04:20:03 PM PATIENT NAME: BRANDY TAVARES at 1620 PATIENT NAME: BRANDY TAVARES ckhtfr7522-33-82V10:45:00F.[id number] lable for patient dcexGMMCOECCSIAFOO9864-83-31W49:20:42 [facility] 2020-06-02 18:00:00 [id number] A4SBkx8MpW0MVJZHBpFoX0H4UXUGZ viG3yJa8eBOmet0B9oWpUDHh9KLsMKTSXO2782-66-68K54:0 0:00 [facility] / H PREPORT#:[id number] REPORT STATUS: SignedDATE:06/02/20 TIME: 1800 PATIENT: BRANDY TAVARES UNIT #: [id number]#: [id number] [address] [birth year] AGE: 30 SEX: F ATTEND: Karen Mae MDADM AUTHOR: Karen Mae MD * ALL edits or amendments must be made on the electronic/computer document * OB Admission H P HxChief complaint: elevated blood pressure, elevated MCA dopplersHPI:Brandy is a 30 year old G1 who presents at 34 5/7 WGA with mono di TIUP. She hasbeen closely followed by [facility] for several weeks with slowly increasing BP's and increasing evidence of placental resistance/insufficiency. She recieved FLM steroids last week in house during a [facility] eval admssion. Today she was seen by Dr. Comer ([facility]) who recommended admission to [facility] and possible delivery seconday to abnormal findings on sonogram with elevated MCA dopplers of one fetus, and elevatd cord SDR on both fetuses. She has had labile BP's in clinic with Dr. Comer today they were 140s/90s. Brandy reports some cramping and lower back pain over the past several days, but denies NUNEZ, visual changes or RUQ pain. She reports normal movement x 2and no leaking fluid or vaginal bleeding. 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 Denies: dysuria, flank pain, frequency, hematuria, nocturia, previous pregnancies, urgency, urinary retention, vaginal bleeding, vaginal discharge, other. Psych:anxiety. Denies: agitation, auditory hallucination, change in mental status, confusion, delusional, depression, homicidal ideation, hostile, insomnia, stress, suicidal ideation, visual hallucination, other. Additional notes:contractions/low back pain x 48 hours, denies NUNEZ vis change,s RUQ pain, vaginal bleeding, and leaking fluid. Normal movement x 2 All systems rev neg: except as marked Objective GeneralVS:Last Documented: Result Date Time B/P 126/80 06/02 1715 Temp 98.6 06/02 1715 Pulse 111 06/02 1715 Resp 20 06/02 1715 B/P Mean 98.0 06/02 1707 Vital Signs Date Temp Pulse Resp B/P B/P Mean Pulse Ox FiO2 06/02 98.6 111 20 126/80 98.0 Patient Weight Weight (lb): Weight (oz): Weight (kg): Physical ExamHEENT: normocephalic w/o injuryCardiac: regular rate and rhythmLungs: clear to auscultationBreasts: deferredNeuro: Exam: alert, oriented x3, normal speech DTR's (lower extr): briskAbdomen: gravid, soft, no abnormal tenderness, no guarding, no rebound tendernessUterine activity: Monitor: toco Frequency (description): rare Frequency (minutes): 30 Duration (seconds): 90 Intensity: mild Resting tone: relaxedMembranes: Membranes: IntactLower extremities: Edema: 2+ pitting Calf tenderness: negativeBaby A: Baby A variability: moderate 6-25 bpm Baby A accelerations: 15 X 15 Baby A decelerations: none Baby A FHR category: category 1Baby B: Baby B baseline: 150 bpm Baby B variability: moderate 6-25 bpm Baby B accelerations: 15 X 15 Baby B decelerations: late Baby B FHR category: category 2 (overall reassuring ) ResultFindings/Data:Laboratory Tests: 06/02 1658 Chemistry Sodium (135 - 145 mEq/L) 136 Potassium (3.5 - 5.0 mEq/L) 4.3 Chloride (100 - 115 mEq/L) 103 Carbon Dioxide (22 - 31 mEq/L) 20 L Anion Gap (10 - 20) 16.90 BUN (7 - 18 mg/dL) 7 Creatinine (0.5 - 1.0 mg/dL) 0.6 Glomerular Filtr Rate (>60 ml/min) 117 Glucose (65 - 110 mg/dL) 106 Uric Acid (2.6 - 6.0 mg/dL) 4.3 Calcium (8.4 - 10.2 mg/dL) 8.5 Total Bilirubin (0.2 - 1.0 mg/dL) 0.4 AST (15 - 37 units/L) 13 L ALT (12 - 78 units/L) 14 Total Alk Phosphatase (46 - 116 units/L) 231 H Lactate Dehydrogenase (81 - 234 units/L) 140 Total Protein (6.3 - 8.2 gm/dL) 5.7 L Albumin (3.4 - 4.8 gm/dL) 2.3 L Hematology WBC (6.6 - 12.1 K/mm3) 11.6 RBC (3.45 - 5.01 M/mm3) 3.98 Hgb (10.7 - 13.9 g/dL) 12.7 Hct (32.1 - 42.1 %) 38.4 MCV (84.1 - 94.8 fL) 97 H MCH (27 - 35 pg) 31.9 MCHC (32.2 - 34.1 gm/dL) 33.1 RDW (12.4 - 16.5 %) 14.6 Plt Count (133 - 385 K/mm3) 172 MPV (9.1 - 12.7 fl) 12.2 Neut % (Auto) (56.5 - 79.4 %) 59.5 Lymph % (Auto) (14.3 - 34.3 %) 26.3 Mayes % (Auto) (5.1 - 10.4 %) 9.2 Eos % (Auto) (0.1 - 3.0 %) 0.4 Baso % (Auto) (0.1 - 1.0 %) 0.3 Neut # (Auto) (K/mm3) 6.9 Lymph # (Auto) (K/mm3) 3.0 Mayes # (Auto) (K/mm3) 1.1 Eos # (Auto) (K/mm3) 0.05 Baso # (Auto) (K/mm3) 0.0 Serology SARS-CoV-2 Ag (Rapid) (NEGATIVE) NEGATIVE Diagnosis, Assessment Plan Diagnosis, Assessment PlanFree Text A P:30 yo G1 @ 34 5/7 WGA-Abnormal dopplers on imaging today and HR deceleration. d/w pt, will plan on moving to delivery via P CD. - PIH, normal labs at present and normotensive/asytmpomtic.- for pedi @ delivery- mat h/o HSV, no active lesions, on valtrex OR and nursing notified at 1812 RPT #:[id number] OF REPORT HPHistory and physical ugbiswogwvf1343-52-32F70:00:00F.[id number] AVAvailable for patient puctONWDDTMMQFQXAQ4953-86-58J04:12:31 [facility] 2020-05-28 08:58:00 [id number] adnO+I/SjEK+klilkVEU4L8kL1XYd KNAdPlbfVQyYvrD8hnWO+dlJ8Dd++M/dSd8290-48-16D27:5 8:00 [facility] Disch UndeliveredREPORT#:[id number] REPORT STATUS: SignedDATE:05/28/20 TIME: 857 PATIENT: BRANDY TAVARES UNIT #: [id number]#: [id number] ROOM[facility]BED: [facility]-ADOB: [birth year] AGE: 30 SEX: F ATTEND: Karen Mae MDADM AUTHOR: Karen Mae MD * ALL edits or amendments must be made on the electronic/computer document * Subjective SubjectiveAdmission EGA (wks/days): 33 6/7Status/Day: hospital day (day 2)Comments:see daily progress note for exam and objective/subjective data Objective Physical ExamFHR evaluation: Baby A baseline: 125 bpm Baby A variability: moderate 6-25 bpm Baby A accelerations: 15 X 15 Baby A decelerations: none Baby A FHR category: category 1Uterine activity: Monitor: toco Frequency (description): rareHEENT: normocephalic w/o injuryLungs: clear to auscultationNeuro: Exam: alert, oriented x3, normal speech, normal gait, CNII-XII grossly intact, reflexes equal bilat DTR's (lower extr): normal 1-2+Abdomen: gravid, soft, no abnormal tenderness, no guarding, no rebound tendernessLower extremities: Edema: 1+ pitting Calf tenderness: negative Discharge Undelivered Discharge UndeliveredAssessment:30 yo with mono di TIUP, admitted at 33 4/7 WGA for PIH evaluation.She had MFM consult in house with reassuring findingsShe received Celestone for lung maturity on 05/27MO home with strict precautions Instructions: instr and warnings rev'dWarnings: preeclampsia signs/symptDiet: regularActivity and restrictions: modified bedrestPrescriptions: noneConsultation(s) performed: Consultation performed: neonatologistDischarge condition: stableDischarge to: homeFollow up with: neurologist, obstetricianFollow up in: 1 weekDischarge diagnosis: pre-eclampsia (no severe features)Discharge management: less than 30 minsTime spent: Time spent with patient (minutes): 15 >50% spent on counseling/coordination of care: yes at 0902 RPT #:[id number] OF REPORT OBObstetric qzhz5097-00-33N40:58:00F.[id number] able for patient uesiQQOBPMJMDOOSGM2930-41-20D68:02:25 [facility] 2020-05-28 08:41:00 [id number] 5eeQqyGP8WDEs61bQnPPlB15gkxha V2kQBT/flbmREF4psK53Mp1fI5NofU1/3q0349-85-01O81:4 1:00 [facility] ([facility])OB Antepartum Prog NoteREPORT#:[id number] REPORT STATUS: SignedDATE:05/28/20 TIME: 0841 PATIENT: BRANDY TAVARES UNIT #: [id number]#: [id number] [address] [birth year] AGE: 30 SEX: F ATTEND: Karen Mae MDADM AUTHOR: Karen Mae MD * ALL edits or amendments must be made on the electronic/computer document * Subjective SubjectiveComments:34 0/7 WGA, no overnight events, feeling better this am Objective Nursing Documentation ReviewNursing data:The data set between the solid lines has been imported from nursing documentation. Any exceptions have been noted below under Provider comments. ROM date: ROM time: Labor onset date: Labor onset time: EGA at admit (weeks): Provider comments on imported nursing data: [] VS:Last Documented: Result Date Time B/P Mean 102.0 05/28 0422 B/P 143/75 05/28 0422 Pulse 96 05/28 0422 Pulse Ox 98 05/27 2041 Temp 98.6 05/27 2041 Resp 19 05/27 2041 Vital Signs Date Temp Pulse Resp B/P B/P Mean Pulse Ox FiO2 05/27-05/28 98.6 87-100 19 126-143/75-89 96.0-104.0 98 Patient Weight Weight (lb): 241Weight (oz): Weight (kg): 109.316 Membranes: IntactUterine activity: Monitor: toco Frequency (description): rareHEENT: normocephalic w/o injuryNeuro: Exam: alert, oriented x3, normal speech, normal gait, CNII-XII grossly intact, reflexes equal bilat DTR's (lower extr): normal 1-2+Abdomen: gravid, soft, no abnormal tenderness, no guarding, no rebound tendernessLower extremities: Edema: 1+ pitting Calf tenderness: negativeBaby A: Baby A baseline: 125 bpm Baby A variability: moderate 6-25 bpm Baby A accelerations: 15 X 15 Baby A decelerations: none Baby A FHR category: category 1Baby B: Baby B baseline: 130 bpm Baby B variability: moderate 6-25 bpm Baby B accelerations: 15 X 15 Baby B decelerations: none Baby B FHR category: category 1Findings/data:Laboratory Tests: 05/28 05/27 05/27 0012 1715 1500 Chemistry Sodium (135 - 145 mEq/L) 138 Potassium (3.5 - 5.0 mEq/L) 4.0 Chloride (100 - 115 mEq/L) 104 Carbon Dioxide (22 - 31 mEq/L) 21 L Anion Gap (10 - 20) 17.50 BUN (7 - 18 mg/dL) 3 L Creatinine (0.5 - 1.0 mg/dL) 0.6 Glomerular Filtr Rate (>60 ml/min) 117 Glucose (65 - 110 mg/dL) 71 Uric Acid (2.6 - 6.0 mg/dL) 4.5 Calcium (8.4 - 10.2 mg/dL) 8.6 Total Bilirubin (0.2 - 1.0 mg/dL) 0.5 AST (15 - 37 units/L) 17 ALT (12 - 78 units/L) 19 Total Alk Phosphatase (46 - 116 units/L) 222 H Lactate Dehydrogenase (81 - 234 units/L) 141 Total Protein (6.3 - 8.2 gm/dL) 5.9 L Albumin (3.4 - 4.8 gm/dL) 2.4 L Hematology WBC (6.6 - 12.1 K/mm3) 10.9 RBC (3.45 - 5.01 M/mm3) 4.05 Hgb (10.7 - 13.9 g/dL) 13.0 Hct (32.1 - 42.1 %) 43.2 H MCV (84.1 - 94.8 fL) 107 H MCH (27 - 35 pg) 32.1 MCHC (32.2 - 34.1 gm/dL) 30.1 L RDW (12.4 - 16.5 %) 14.7 Plt Count (133 - 385 K/mm3) 155 MPV (9.1 - 12.7 fl) 11.8 Neut % (Auto) (56.5 - 79.4 %) 65.0 Lymph % (Auto) (14.3 - 34.3 %) 21.7 Mayes % (Auto) (5.1 - 10.4 %) 8.9 Eos % (Auto) (0.1 - 3.0 %) 0.6 Baso % (Auto) (0.1 - 1.0 %) 0.6 Neut # (Auto) (K/mm3) 7.1 Lymph # (Auto) (K/mm3) 2.4 Mayes # (Auto) (K/mm3) 1.0 Eos # (Auto) (K/mm3) 0.06 Baso # (Auto) (K/mm3) 0.1 Immature Plt Fraction (0.0 - 10.8 %) 8.1 Serology Treponema pallidum Ab (NONREACTIVE) NONREACTIVE Hep Bs Antigen (NONREACTIVE) NONREACTIVE Hepatitis C Antibody (NONREACTIVE) NONREACTIVE Hep C Ab Signal/Cutoff (<0.80) 0.23 HIV 1 2 Antibody (NONREACTIVE) NONREACTIVE SARS-CoV-2 Ag (Rapid) (NEGATIVE) NEGATIVE Urines Ur Random Creatinine (mg/dL) 42.9 U Random Total Protein (mg/dL) 13.4 Protein/Creatinin Ratio (<200 mg/gcrea) 310.0 H Diagnosis, Assessment Plan Diagnosis, Assessment PlanFree Text A P:mono di TIUP, 34 0/7 WGAs/p ANT with Dr. Comer last night, reassuring status x 2PIH, mild range pressures, no severe features, normal labs, asytmpomatic this ams/p celestone x 1, due for 2nd dose this pm Will plan on discharge home with strict precatuions after her second dose of celestone at 0844 RPT #:[id number] OF REPORT PRProgress Vwpu3333-97-68V87:41:00F.[id number] able for patient ccmxTWTTBZXXJNZIGP7705-88-55O11:44:24 [facility] 2020-05-27 22:51:00 [id number] zc6vcFa6JuL6tdL2q/uTwPsVV8pJC +QVGJw4y0RjeTEckTe1RYDr7hhboWUxfZC4826-88-45Y19:5 1:00 [facility] ([facility] Consultation NoteREPORT#:[id number] REPORT STATUS: SignedDATE:05/27/20 TIME: 2250 PATIENT: BRANDY TAVARES UNIT #: [id number]#: [id number] [address] [birth year] AGE: 30 SEX: F ATTEND: Karen Mae [facility] AUTHOR: Jordana Comer MD * ALL edits or amendments must be made on the electronic/computer document * History of Present Illness HPIHPI:30 YEAR OLD G1 AT 33 6/7 WEEKS GA, MO/DI TWINS, NO EVIDENCE OF TTTS BY PREVIOUS EVALUATIONS, PRESENTED WITH ELEVATED BP. Denies headache, epigastric pain. Has had labile BP for 2 weeks. 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 History Past HistoryPast medical history: HSV genitalisPast surgical history: denies PSHPast social history: no alcohol use, no drug abuse, no tobacco usePast family history:Relation not specified for: Family History: Unremarkable Medications:Current Hospital Medications:Central Nervous System Agents Sig/Tequila Start time Last Medication Dose Route Stop Time Status Admin Acetaminophen 650 MG Q3H PRN PRN 05/27 1600 AC (ACETAMINOPHEN 325 PO 07/26 1559 MG TAB) Zolpidem Tartrate 5 MG BEDTIME PRN PRN 05/27 1600 AC (AMBIEN 5 MG UDTAB) PO 06/26 1559 Gastrointestinal Drugs Sig/Tequila Start time Last Medication Dose Route Stop Time Status Admin Docusate Sodium 100 MG BID 05/27 2000 AC 05/27 (DOCUSATE SODIUM 100 PO 07/26 195 2105 MG CAP) Al Hydrox/Mg Hydrox/ 30 ML Q4H PRN PRN 05/27 1600 AC Simethicone PO 07/26 1559 (MYLANTA 30 ML SUSP) Magnesium Hydroxide 30 ML Q6H PRN PRN 05/27 1600 AC (MILK OF MAGNESIA 30 PO 07/26 1559 ML UD) Polyethylene Glycol 17 GM DAILY PRN PRN 05/27 1600 AC (POLYETHYLENE GLYCOL PO 07/26 1559 PKT) Hormones And Synthetic Substit Sig/Tequila Start time Last Medication Dose Route Stop Time Status Admin Betamethasone Acet/ 12 MG Q24H 05/27 1600 AC 05/27 Betameth SodPhos IM 05/28 1601 1703 (CELESTONE SOLUSPAN 12MG/2 ML SYR) Vitamins Sig/Tequila Start time Last Medication Dose Route Stop Time Status Admin Multivi/Iron Carb/Fe 1 EA DAILY 05/28 900 AC Sulf/FA/Prenat PO 07/27 08 ( VITAMINS) Allergies:Coded Allergies:No Known Drug Allergies (05/27/20) Objective Physical ExamVS/I O:Vital Signs: Date Time Temp Pulse Resp B/P B/P Pulse O2 O2 Flow FiO2 Mean Ox Delivery Rate 05/27 2041 96.0 05/27 2041 98.6 100 19 126/78 98 05/27 1516 104.0 05/27 1516 95 128/89 Last Documented: Result Date Time B/P Mean 96.0 05/27 2041 Pulse Ox 98 05/27 2041 B/P 126/78 05/27 2041 Temp 98.6 05/27 2041 Pulse 100 05/27 2041 Resp 19 05/27 2041 Patient Weight Weight (lb): 241Weight (oz): Weight (kg): 109.316 General appearance: alert, awake, no acute distressHEENT: normocephalicCardiovascular: regular rate and rhythmRespiratory: clear to auscultationAbdomen: non-tender, softExtremities: edema (trace), moves all, no calf tnedernessNeuro/[employer]: alert, oriented x 3, normal gait, normal speech, reflexes equal bilat.Skin: dry, intact, normal color, normal temperature, normal turgorPsychiatry: normal affect, normal judgment/insight, normal mood, not homicidalFetal heart rate pattern: category I ( x 2) ResultsFindings/Data:Laboratory Tests 05/27 1715 Chemistry Sodium (135 - 145 mEq/L) 138 Potassium (3.5 - 5.0 mEq/L) 4.0 Chloride (100 - 115 mEq/L) 104 Carbon Dioxide (22 - 31 mEq/L) 21 L Anion Gap (10 - 20) 17.50 BUN (7 - 18 mg/dL) 3 L Creatinine (0.5 - 1.0 mg/dL) 0.6 Glomerular Filtr Rate (>60 ml/min) 117 Glucose (65 - 110 mg/dL) 71 Uric Acid (2.6 - 6.0 mg/dL) 4.5 Calcium (8.4 - 10.2 mg/dL) 8.6 Total Bilirubin (0.2 - 1.0 mg/dL) 0.5 AST (15 - 37 units/L) 17 ALT (12 - 78 units/L) 19 Total Alk Phosphatase (46 - 116 units/L) 222 H Lactate Dehydrogenase (81 - 234 units/L) 141 Total Protein (6.3 - 8.2 gm/dL) 5.9 L Albumin (3.4 - 4.8 gm/dL) 2.4 L Laboratory Tests 05/27 1715 Hematology WBC (6.6 - 12.1 K/mm3) 10.9 RBC (3.45 - 5.01 M/mm3) 4.05 Hgb (10.7 - 13.9 g/dL) 13.0 Hct (32.1 - 42.1 %) 43.2 H MCV (84.1 - 94.8 fL) 107 H MCH (27 - 35 pg) 32.1 MCHC (32.2 - 34.1 gm/dL) 30.1 L RDW (12.4 - 16.5 %) 14.7 Plt Count (133 - 385 K/mm3) 155 MPV (9.1 - 12.7 fl) 11.8 Neut % (Auto) (56.5 - 79.4 %) 65.0 Lymph % (Auto) (14.3 - 34.3 %) 21.7 Mayes % (Auto) (5.1 - 10.4 %) 8.9 Eos % (Auto) (0.1 - 3.0 %) 0.6 Baso % (Auto) (0.1 - 1.0 %) 0.6 Neut # (Auto) (K/mm3) 7.1 Lymph # (Auto) (K/mm3) 2.4 Mayes # (Auto) (K/mm3) 1.0 Eos # (Auto) (K/mm3) 0.06 Baso # (Auto) (K/mm3) 0.1 Immature Plt Fraction (0.0 - 10.8 %) 8.1 Laboratory Tests 05/27 05/27 1715 1500 Serology Treponema pallidum Ab (NONREACTIVE) NONREACTIVE Hep Bs Antigen (NONREACTIVE) NONREACTIVE Hepatitis C Antibody (NONREACTIVE) NONREACTIVE Hep C Ab Signal/Cutoff (<0.80) 0.23 HIV 1 2 Antibody (NONREACTIVE) NONREACTIVE SARS-CoV-2 Ag (Rapid) (NEGATIVE) NEGATIVE Radiology data:ULTRASOUND: diamniotic monochorionic twinsA maternal left vertexno anomaliesnormal bladder heartMCA PSV 54S/D UA 3.9BPP 8/8EFW 2360 gms, 50 % B maternal right vertexno grosss anomaliesnoraml bladder heartMCAPSV 64S/D UA 3.3BPP 8/8EFW 2417 gms, 55 % cervix 2.89 cm long and closed AGA fetusesno evidence of TTTSreassuring BPP Diagnosis, Assessment Plan Diagnosis, Assessment PlanFree Text A P:30 year old G1 at 33 6/7 weeks GA 1. mo/di twins, AGA, , no TTTS, category 1 tracingat risk for delivery: celestone2. gestational hypertension, no evidence of severe preeclampsia, pending urine protein, BP stablizied with rest. Protein/creatinine ratio pending. recommend rest, monitoring for developement of preeclampsia3. possibly hemoconcentrated ( increased H/H), but normal BUN/CREATININE, continue hydration4. recommend close monitoring, delivry at 36 weeks GA unless development of severe hypertension or preeclamspai. Thank you at 2303 RPT #:[id number] OF REPORT OANigmbvxfcaof1762-14-66J60:51:00F.[id number] 425AVAvailable for patient kytvIPBRXFUXHLDDWD9137-89-12L24:03:51 [facility] 2020-05-27 17:19:00 [id number] 0CppE7aSzE838wJhFGvZxw8lX5dJF NEEPUuOpnP5lc8ilFH4keIq8rtFl4rp+/7054-52-82H25:1 9:00 [facility] ([facility])OB Admission / H PREPORT#:[id number] REPORT STATUS: SignedDATE:05/27/20 TIME: 1718 PATIENT: BRANDY TAVARES UNIT #: [id number]#: [id number] ROOM[facility]BED: [facility]-ADOB: [birth year] AGE: 30 SEX: F ATTEND: Karen Mae [facility] AUTHOR: Karen Mae MD * ALL edits or amendments must be made on the electronic/computer document * OB Admission H P HxChief complaint: elevated blood pressureHPI:Brandy is a 30 year old G1 @ 33 6/7 WGA who presents for APU admission secondaryto concerns for PIH. This is a mono-di TIUP and she has been followed by MFM throughout the ,with recent evidence of elevated SDR in both babies. She has had gradually increasing BP's in the high-normal range for the past twoweeks, however over the past 2-3 days she has had a persistent headache and doesn't feel well ("I just feel off"). In cliinc today her BP was 150s/90s. She is being admitted for observation, lung maturity streroids and in-house MFM testing. history: : 1 Term: 0Current : LMP: 10/03/19 EDC: 07/09/20 Admission EGA (wks/days): 33 6/7 EGA based on: LMP (c/w 1st tri sonogram) Multiples: twins Chorionicity: 2 amnion 1 chorionConditions of : cervical dysplasia obesity BMI 36 HSV, on valtrex Labs: Blood type: O Rh: negative Rubella: immune Hepatitis B: negative HIV: negative STD: negative Syphilis: currently negative GBS: unknownProcedures: NIPT normal Carrier screen negative Past medical history: denies PMHPast surgical history: denies PSHSocial history: , no alcohol use, no tobacco use, no drug useFamily historyRelation not specified for: Family History: Unremarkable Medications: vitamin AllergiesCoded Allergies:No Known Drug Allergies (05/27/20) Review of SystemsConstitutional:fatigue. Denies: chills, fever, generalized weakness, lethargy, malaise, recentwt loss, other. Neuro:headache. Denies: bladder dysfunction, bowel dysfunction, change in LOC, confusion, dizziness, focal weakness, gait problem, lightheaded, numbness, seizure, slurred speech, spinning sensation, syncope, unable to speak, vision change, weakness, other. Additional notes:occasional contractions, normal movement x 2, no leaking fluid or vaginal bleeding Objective GeneralVS:Last Documented: Result Date Time B/P Mean 104.0 05/276 B/P 128/89 05/27 1516 Pulse 95 05/27 1516 Vital Signs Date Temp Pulse Resp B/P B/P Mean Pulse Ox FiO2 05/27 95 128/89 104.0 Patient Weight Weight (lb): 241Weight (oz): Weight (kg): 109.316 Physical ExamHEENT: normocephalic w/o injuryCardiac: regular rate and rhythm, no clinically sig murmur, no gallopsLungs: clear to auscultationBreasts: deferredNeuro: Exam: alert, oriented x3, normal speech, normal gait, CNII-XII grossly intact, reflexes equal bilat DTR's (lower extr): normal 1-2+Abdomen: gravid, soft, no abnormal tenderness, no guarding, no rebound tendernessUterine activity: Monitor: toco Frequency (description): rarePelvic exam: Exam: soft, non-tender, approp size for gest ageMembranes: Membranes: IntactLower extremities: Edema: 1+ pitting Calf tenderness: negativeBaby A: Baby A baseline: 125 bpm Baby A variability: moderate 6-25 bpm Baby A accelerations: 15 X 15 Baby A decelerations: none Baby A FHR category: category 1Baby B: Baby B baseline: 130 bpm Baby B variability: moderate 6-25 bpm Baby B accelerations: 15 X 15 Baby B decelerations: none Baby B FHR category: category 1 ResultFindings/Data:Laboratory Tests: 05/27 05/27 1715 1500 Chemistry Sodium (135 - 145 mEq/L) 138 Potassium (3.5 - 5.0 mEq/L) 4.0 Chloride (100 - 115 mEq/L) 104 Carbon Dioxide (22 - 31 mEq/L) 21 L Anion Gap (10 - 20) 17.50 BUN (7 - 18 mg/dL) 3 L Creatinine (0.5 - 1.0 mg/dL) 0.6 Glomerular Filtr Rate (>60 ml/min) 117 Glucose (65 - 110 mg/dL) 71 Uric Acid (2.6 - 6.0 mg/dL) 4.5 Calcium (8.4 - 10.2 mg/dL) 8.6 Total Bilirubin (0.2 - 1.0 mg/dL) 0.5 AST (15 - 37 units/L) 17 ALT (12 - 78 units/L) 19 Total Alk Phosphatase (46 - 116 units/L) 222 H Lactate Dehydrogenase (81 - 234 units/L) 141 Total Protein (6.3 - 8.2 gm/dL) 5.9 L Albumin (3.4 - 4.8 gm/dL) 2.4 L Hematology WBC (6.6 - 12.1 K/mm3) 10.9 RBC (3.45 - 5.01 M/mm3) 4.05 Hgb (10.7 - 13.9 g/dL) 13.0 Hct (32.1 - 42.1 %) 43.2 H MCV (84.1 - 94.8 fL) 107 H MCH (27 - 35 pg) 32.1 MCHC (32.2 - 34.1 gm/dL) 30.1 L RDW (12.4 - 16.5 %) 14.7 Plt Count (133 - 385 K/mm3) 155 MPV (9.1 - 12.7 fl) 11.8 Neut % (Auto) (56.5 - 79.4 %) 65.0 Lymph % (Auto) (14.3 - 34.3 %) 21.7 Mayes % (Auto) (5.1 - 10.4 %) 8.9 Eos % (Auto) (0.1 - 3.0 %) 0.6 Baso % (Auto) (0.1 - 1.0 %) 0.6 Neut # (Auto) (K/mm3) 7.1 Lymph # (Auto) (K/mm3) 2.4 Mayes # (Auto) (K/mm3) 1.0 Eos # (Auto) (K/mm3) 0.06 Baso # (Auto) (K/mm3) 0.1 Immature Plt Fraction (0.0 - 10.8 %) 8.1 Serology Treponema pallidum Ab (NONREACTIVE) NONREACTIVE Hep Bs Antigen (NONREACTIVE) NONREACTIVE SARS-CoV-2 Ag (Rapid) (NEGATIVE) NEGATIVE Results: labs reviewed, vital signs stable Diagnosis, Assessment Plan Diagnosis, Assessment PlanFree Text A P:30 yo G1 @ 33 6/7 WGA mono di TIUP with gHTN vs PIH, no severe features- PIH, asytmpomatic at present, will trend BP's. Admit labs show no e/o HELLP- MonodiTIUP, plan for ultrasound with Dr. Comer this pm, will plan on delivery via primary CD when indicated- lung maturity steroids now, and repeat tomorrow (given at 5 pm today). Mag for severe features. - COVID negative- GBS unknown, if labors will need abx. at 1913 RPT #:[id number] OF REPORT HPHistory and physical wnvzirdapfu3523-24-15F60:19:00F.[id number] AVAvailable for patient offzONJJFQXEVTTZTW8886-53-47H56:14:16 [facility]
[2023-11-28 17:30] LABS: Specific Gravity 1.022 (1.005-1.030); Urine Bacteria None Seen /HPF (<20); Urine Bilirubin NEGATIVE (Negative); Urine Blood Negative (Negative); Urine Clarity Extremely Turbid (Clear); Urine Color Yellow (Yellow); Urine Crystals Unidentified Few /HPF (None Seen); Urine Glucose NEGATIVE (Negative); Urine Mucus 3+ /HPF (None Seen); Urine Protein TRACE (Negative); Urine RBC <5 /HPF (None Seen); Urine Urobilinogen Normal (Normal); Urine pH 5.5 (5.0-7.0)
[2023-11-28 17:42] LABS: Albumin/Globulin Ratio 1.2 (1.1-1.8); Anion Gap 13.5 mEq/L (5.0-15.0); Bilirubin Total 1.1 mg/dL (0.2-1.0); Globulin 3.4 g/dL (2.3-3.5); Potassium 3.5 mEq/L (3.5-5.1); Protein, Total 7.4 g/dL (6.4-8.2)
[2023-11-28 17:47] LABS: Absolute Lymphocytes (CBC) 0.4 K/uL (0.7-4.9); Basophils % 0.3 % (0-1.3); Eosinophils % 0.3 % (0-4.4); Hematocrit 43.3 % (36.0-45.0); Hemoglobin 14.8 g/dL (12.0-15.0); Lymphocytes % 3.3 % (15.3-44.8); MCV 91.3 fL (80-100); MPV 9.7 fL (7.6-11.3); Platelets 230 thou/uL (152-406); RBC Red Blood Cell Count 4.74 M/uL (3.86-4.86)
--- NOTE | 2023-11-28 17:48 | RAD REPORT ---
EXAM DESCRIPTION: CTAbdomen Pelvis W Contrast - 11/28/2023 5:39 pm CLINICAL HISTORY: Abdominal pain. Abd pain;Nausea / vomiting COMPARISON: No comparisons TECHNIQUE: Biphasic CT imaging of the abdomen and pelvis was performed with 100 ml non-ionic IV cont rast. All CT scans are performed using dose optimization technique as appropriate and may include automated exposure control or mA/KV adjustment according to patient size. FINDINGS: The lung bases are clear. The liver, spleen, pancreas, adrenal glands and kidneys are within normal limits. No bowel obstruction, free air, free fluid or abscess. The colon appears significantly fluid-filled. The appendix is normal. No evidence of significant lymphadenopathy. No suspicious bony findings. IMPRESSION: Fluid-filled colon can be seen with diarrheal conditions.
--- NOTE | 2023-11-28 19:29 | EDPHYS ---
[facility] Name: Brandy Olivia Age: 33 yrs Sex: Female : 1990 Arrival Date: 11/28/2023 Time: 16:20 Bed 16 Private MD: ED Physician Sonido Fisher HPI: 11/27 16:41 This 33 yrs old Female presents to ER via Ambulatory with complaints of Nausea/Vomiting.rn 16:41 The patient presents to the emergency department with nausea, vomiting, diarrhea, rn abdominal pain. Onset: The symptoms/episode began/occurred 2 day(s) ago. Possible causes: unknown. The symptoms are aggravated by nothing. The symptoms are alleviated by nothing. Severity of symptoms: At their worst the symptoms were moderate in the emergency department the symptoms are unchanged. The patient has not recently seen a physician. Patient reports 2 days of nausea/vomiting/diarrhea, associated with generalized abdominal pain. Also having subjective fever and chills. No known sick contacts. Reports equal amount of vomiting and diarrhea. No blood in stool or emesis.. 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 - Social history:: Smoking status: Patient denies any tobacco usage or history of. Patient/guardian denies using alcohol. - Family history:: not pertinent. - Hospitalizations: : No recent hospitalization is reported. ROS: 16:41 Constitutional: Positive for subjective fever and chills Eyes: Negative for injury, rn pain, redness, and discharge, ENT: Negative for injury, pain, and discharge, Neck: Negative for injury, pain, and swelling, Cardiovascular: Negative for chest pain, palpitations, and edema, Respiratory: Negative for shortness of breath, cough, wheezing, and pleuritic chest pain, Abdomen/GI: Positive for abdominal pain/nausea/vomiting/diarrhea MS/Extremity: Negative for injury and deformity, Skin: Negative for injury, rash, and discoloration, Neuro: Positive for generalized weakness Exam: 16:41 Constitutional: This is a well developed, well nourished patient who is awake, alert, rn walks to triage without assistance, holding emesis bag. Just finished throwing up in the lobby bathroom Head/Face: Normocephalic, atraumatic. Cardiovascular: Tachycardic, regular. No pulse deficits. Respiratory: No increased work of breathing, no retractions or nasal flaring. Abdomen/GI: Soft, mild tenderness in all 4 quadrants. No rebound or guarding. Negative Young Neuro: Awake and alert, GCS 15. Normal gait. Vital Signs: 16:37 Pulse 119; Resp 18; Pulse Ox 99% on R/A; Pain 8/10; ld1 16:39 BP 121 / 94; Weight 104.33 kg; Height 5 ft. 2 in. ; Pain 8/10; ld1 17:04 BP 127 / 79; Pulse 102; Resp 17; Pulse Ox 100% on R/A; me1 17:15 BP 116 / 76; Pulse 96; Resp 16; Pulse Ox 96% on R/A; me1 17:37 Pain 3/10; me1 18:15 BP 141 / 86; Pulse 109; Resp 17; Pulse Ox 95% on R/A; me1 19:00 BP 142 / 86; Pulse 82; Resp 16; Pulse Ox 99% on R/A; me1 19:30 BP 148 / 99; Pulse 102; Resp 15; Pulse Ox 98% on R/A; me1 16:39 Body Mass Index 42.07 (104.33 kg, 157.48 cm) ld1 16:37 Pain Scale: Adult ld1 16:39 Pain Scale: Adult ld1 17:37 Pain Scale: Adult me1 MDM: 16:33 Patient medically screened. rn 18:00 Differential diagnosis: gastritis, cholecystitis, appendicitis, diverticulitis, viral cp gastroenteritis, gastroenteritis. 19:27 Data reviewed: vital signs, nurses notes, lab test result(s), radiologic studies, CT cp scan, and as a result, I will discharge patient. 19:27 I considered the following discharge prescriptions or medication management in the emergency department Medications were administered in the Emergency Department. See MAR. Counseling: I had a detailed discussion with the patient and/or guardian regarding the historical points, exam findings, and any diagnostic results supporting the discharge/admit diagnosis, lab results, radiology results, to return to the emergency department if symptoms worsen or persist or if there are any questions or concerns that arise at home. Response to treatment: the patient's symptoms have markedly improved after treatment, and as a result, I will discharge patient. 11/27 16:41 Order name: CBC with Diff rn 11/27 16:41 Order name: CMP rn 11/27 16:41 Order name: Lipase rn 11/27 16:41 Order name: Test, Urine rn 11/27 16:41 Order name: Urinalysis w/ reflexes rn 11/27 17:30 Order name: Test, Urine; Complete Time: 17:41 EDMS 11/27 17:30 Order name: Urinalysis w/ reflexes; Complete Time: 17:41 EDMS 11/27 17:43 Order name: Comprehensive Metabolic Panel; Complete Time: 19:27 EDCT 11/27 19:27 Interpretation: Normal except: CL 108; GLUC 116; BUN 19; GFR 79; AST 12; BILIT 1.1. cp 11/27 17:43 Order name: Lipase; Complete Time: 19:27 EDMS 11/27 17:49 Order name: CBC with Automated Diff EDCT 11/27 18:55 Order name: Manual Differential [facility] 11/27 16:41 Order name: CT Abd/Pelvis - IV Contrast Only rn 11/27 17:49 Order name: CT; Complete Time: 19:27 EDCT 11/27 16:41 Order name: IV Saline Lock; Complete Time: 17:12 rn 11/27 16:41 Order name: Labs collected and sent; Complete Time: 17:12 rn Administered Medications: 16:58 CANCELLED (Other Intervention Used): ondansetron4 mg PO once me1 17:12 Drug: NS 0.9% IV 1000 ml IV at 1 bolus Per protocol; 1000 mL bolus Route: IV; Rate: 1 me1 bolus; Site: left antecubital; 18:36 Follow up: Response: No adverse reaction; IV Status: Completed infusion; IV Intake: me1 1000ml 17:12 Drug: morphine IVP or IV 4 mg IVP once over 4 mins Route: IVP; Infused Over: 4 mins; me1 Site: left antecubital; 17:37 Follow up: Pain 3/10 Adult; Response: No adverse reaction; Pain is decreased me1 17:12 Drug: Ondansetron IVP 4 mg IVP once; over 2 minutes Route: IVP; Site: left antecubital; me1 17:37 Follow up: Response: No adverse reaction; Nausea is decreased me1 Disposition Summary: 11/28/23 19:28 Discharge Ordered Notes: Location: Home cp Problem: new cp Symptoms: have improved cp Condition: Stable cp Diagnosis - Diarrhea, unspecified cp - Nausea with vomiting, unspecified cp Followup: cp - With: Private Physician - When: 2 - 3 days - Reason: Worsening of condition Discharge Instructions: - Discharge Summary Sheet cp - Food Choices to Help Relieve Diarrhea, Adult cp - Diarrhea, Adult cp - Nausea and Vomiting, Adult cp - Form - Excuse from Work, School, or Physical Activity cp Forms: - Medication Reconciliation Form cp - Thank You Letter cp - Antibiotic Education cp - Prescription Opioid Use cp - Patient Portal Instructions cp - Leadership Thank You Letter cp - Work release form me1 Prescriptions: - Zofran 4 mg Oral Tablet - take 1 tablet ORAL route every 12 hours As needed; 20 tablet; Refills: 0, cp Product Selection Permitted - dicyclomine 20 mg Oral tablet - take 1 tablet ORAL route 4 times per day; 30 tablet; Refills: 0, Product cp Selection Permitted Signatures: Dispatcher [employer] EDSonido Issa MD MD rn Page, Corey, PA PA cp Keisha Ruiz RN RN ld1 Marisela Rocha RN RN me1 Corrections: (The following items were deleted from the chart) 16:58 16:41 Ondansetron PO 4 mg PO once ordered. rn me1
--- NOTE | 2023-11-28 19:29 | ER ---
Nurse's Notes [facility] Name: Brandy Olivia Age: 33 yrs Sex: Female : 1990 Arrival Date: 11/28/2023 Time: 16:20 Bed 16 Private MD: Diagnosis: Diarrhea, unspecified;Nausea with vomiting, unspecified Presentation: 11/27 16:37 Chief complaint: Patient states: N/V X 2 days. Abdominal pain since this morning. ld1 Coronavirus screen: At this time, the client does not indicate any symptoms associated with coronavirus-19. Ebola Screen: No symptoms or risks identified at this time. Initial Sepsis Screen: Does the patient meet any 2 criteria? No. Patient's initial sepsis screen is negative. Does the patient have a suspected source of infection? No. Patient's initial sepsis screen is negative. Risk Assessment: Do you want to hurt yourself or someone else? Patient reports no desire to harm self or others. Onset of symptoms was November 28, 2023. 16:37 Method Of Arrival: Ambulatory ld1 16:37 Acuity: ARIN 3 ld1 Triage Assessment: 16:38 General: Appears in no apparent distress. comfortable, Behavior is calm, cooperative, ld1 appropriate for age. Pain: Complains of pain in right upper quadrant, left upper quadrant, right lower quadrant and left lower quadrant Pain does not radiate. Pain currently is 8 out of 10 on a pain scale. Quality of pain is described as throbbing. EENT: No signs and/or symptoms were reported regarding the EENT system. Neuro: Level of Consciousness is awake, alert, obeys commands, Oriented to person, place, time, situation, Legal Job Titles are equal bilaterally. Cardiovascular: Capillary refill < 3 seconds Patient's skin is warm and dry. Respiratory: Airway is patent Respiratory effort is even, unlabored. GI: Abdomen is round non-distended, Reports diarrhea, nausea, vomiting. 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 - Social history:: Smoking status: Patient denies any tobacco usage or history of. Patient/guardian denies using alcohol. - Family history:: not pertinent. - Hospitalizations: : No recent hospitalization is reported. Screenin:33 [facility] ED Fall Risk Assessment (Adult) History of falling in the last 3 months, me1 including since admission No falls in past 3 months (0 pts) Confusion or Disorientation No (0 pts) Intoxicated or Sedated No (0 pts) Impaired Gait No (0 pts) Mobility Assist Device Used No (0 pt) Altered Elimination No (0 pt) Score/Fall Risk Level 0 - 2 = Low Risk Oriented to surroundings, Provided non-skid footwear, Hourly rounding (assess needs \T\ fall precautionary measures) done. Abuse screen: Denies threats or abuse. Nutritional screening: No deficits noted. Tuberculosis screening: No symptoms or risk factors identified. Assessment: 17:33 General: Appears uncomfortable, obese, well groomed, well developed, Behavior is calm, me1 cooperative, appropriate for age, Reports n/v/d x 2 days. mid abdominal pain that is 7/10, cramping. Pain: Complains of pain in abdomen Pain does not radiate. Pain currently is 7 out of 10 on a pain scale. Quality of pain is described as crampy, Pain began 2-3 days ago. Is continuous. Neuro: Level of Consciousness is awake, alert, obeys commands, Oriented to person, place, time, situation, Appropriate for age. Cardiovascular: Capillary refill < 3 seconds Patient's skin is warm and dry. Respiratory: Airway is patent Respiratory effort is even, unlabored, Respiratory pattern is regular, symmetrical. GI: Reports diarrhea, nausea, vomiting, since 2-3 days ago. Derm: Skin is intact, is healthy with good turgor, Skin is pink, warm \T\ dry. Vital Signs: 16:37 Pulse 119; Resp 18; Pulse Ox 99% on R/A; Pain 8/10; ld1 16:39 BP 121 / 94; Weight 104.33 kg; Height 5 ft. 2 in. ; Pain 8/10; ld1 17:04 BP 127 / 79; Pulse 102; Resp 17; Pulse Ox 100% on R/A; me1 17:15 BP 116 / 76; Pulse 96; Resp 16; Pulse Ox 96% on R/A; me1 17:37 Pain 3/10; me1 18:15 BP 141 / 86; Pulse 109; Resp 17; Pulse Ox 95% on R/A; me1 19:00 BP 142 / 86; Pulse 82; Resp 16; Pulse Ox 99% on R/A; me1 19:30 BP 148 / 99; Pulse 102; Resp 15; Pulse Ox 98% on R/A; me1 16:39 Body Mass Index 42.07 (104.33 kg, 157.48 cm) ld1 16:37 Pain Scale: Adult ld1 16:39 Pain Scale: Adult ld1 17:37 Pain Scale: Adult me1 ED Course: 16:24 Patient arrived in ED. rg4 16:33 Sondio Fisher MD is Attending Physician. rn 16:38 Triage completed. ld1 16:38 Arm band placed on right wrist. ld1 16:48 Marisela Rocha, MARIO ALBERTO is Primary Nurse. me1 17:11 Inserted saline lock: 22 gauge in left antecubital area, using aseptic technique. me1 17:11 Initial lab(s) drawn, by nd, sent to lab. Urine collected: clean catch specimen, cloudy.me1 17:12 CT Abd/Pelvis - IV Contrast Only Sent. me1 17:12 Urinalysis w/ reflexes Sent. me1 17:12 Test, Urine Sent. me1 17:12 Lipase Sent. me1 17:12 CMP Sent. me1 17:12 CBC with Diff Sent. me1 17:33 Patient has correct armband on for positive identification. Bed in low position. Call [facility] light in reach. Side rails up X 1. Provided Education on: POC. Verbalized understanding. . 17:33 No provider procedures requiring assistance completed. me1 17:44 Nathen Farias PA is PHCP. cp 19:42 IV discontinued, intact, bleeding controlled, No redness/swelling at site. Pressure me1 dressing applied. Administered Medications: 16:58 CANCELLED (Other Intervention Used): ondansetron4 mg PO once me1 17:12 Drug: NS 0.9% IV 1000 ml IV at 1 bolus Per protocol; 1000 mL bolus Route: IV; Rate: 1 me1 bolus; Site: left antecubital; 18:36 Follow up: Response: No adverse reaction; IV Status: Completed infusion; IV Intake: me1 1000ml 17:12 Drug: morphine IVP or IV 4 mg IVP once over 4 mins Route: IVP; Infused Over: 4 mins; me1 Site: left antecubital; 17:37 Follow up: Pain 3/10 Adult; Response: No adverse reaction; Pain is decreased me1 17:12 Drug: Ondansetron IVP 4 mg IVP once; over 2 minutes Route: IVP; Site: left antecubital; me1 17:37 Follow up: Response: No adverse reaction; Nausea is decreased me1 Medication: 17:33 VIS not applicable for this client. me1 Intake: 18:36 IV: 1000ml; Total: 1000ml. me1 Outcome: 19:28 Discharge ordered by MD. cp 19:42 Discharged to home ambulatory, me1 19:42 Condition: stable 19:42 Discharge instructions given to patient, Instructed on discharge instructions, follow up and referral plans. medication usage, Demonstrated understanding of instructions, follow-up care, medications, Prescriptions given X 2, 19:43 Patient left the ED. me1 Signatures: Sonido Fisher MD MD rn Page, Corey, PA PA cp Garcia, Rubi rg4 Keisha Ruiz RN RN ld1 Marisela Rocha RN RN me1
[2023-11-28 19:30] LABS: Band Neutrophils 17 % (0-1); Eosinophils 1 % (0-3)
[2023-11-28 19:31] LABS: Blood Morphology Comment NOT SEEN (NOT SEEN); Platelet Estimate ADEQ
[2023-11-28 20:04] VITALS: BP 148/99; O2SAT 98
== END ==
LOC: ER 16:20
DX: R11.2 Nausea with vomiting, unspecified (principal); R19.7 Diarrhea, unspecified
CPT/HCPCS: 36415; 74177; 80053; 81001; 81025; 83690; 85025; J2405; J7030; Q9967

== ENCOUNTER 2025-07-05 02:58 | Emergency (ER) | payer SELFPAY ==
--- OUTSIDE RECORDS SUMMARY | 2025-07-05 03:05 | XMS REPORT | Continuity of Care Document ---
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 Role Phone Luma Archibald NP Primary Care Physician Jordana Comer Attending Clinician Unavailable Karen Mae Attending Clinician Unavaila GERALD Calles Attending Clinician Unavailable MCKAYLA TORRE Attending Clinician Unavailab MCKAYLA Garcia Attending Clinician Unavailab Fatuma Mead DO Attending Clinician [phone] [id number] Attending Clinician Unavailable Visit, Mik-chp Nurse Attending Clinician Unava Greta Bardales Attending Clinician + Doctor Unassigned, Mckee Attending Clinician U Jordana Marquez Admitting Clinician Unavailable Karen Mae Admitting Clinician Unavaila ble [email or web address] Admitting Clinician Unavailable Payers Payer Name Policy Type Policy Number Effective Date Expirati on Date Source [facility] (MEDICAID REPLACEMENT - HMO) [id number] Problems Condition Name Condition Details Condition Category Status Onset Date Resolution Date Last Treatment Date Treating Clinician Comments Source No known active problems No known active problems Disease [facility] Allergies, Adverse Reactions, Alerts Allergy Name Allergy Type Status Severity Reaction(s) Onset Date Inactive Date Treating Clinician Comments Source No Known Drug Allergie s DA Active U 05-27 00:00: 00 [facility] No Known Drug Allergie s DA Active U 05-27 00:00: 00 [facility] NO KNOWN ALLERGIE S Drug Class Active [facility] Social History Social Habit Start Date Stop Date Quantity Comments Source History of tobacco use Cigarette Smoker [facility] ASSERTION Possible [facility] Sexual orientation [facility] Alcoholic beverage intake 2025-03-11 00:00:00 2025-03-11 00:00:00 Current drinker of alcohol (finding) [facility] History of Social function 2025-03-11 00:00:00 2025-03-11 00:00:00 [facility] Alcohol intake 2019-10-30 00:00:00 2019-10-30 00:00:00 [facility] Tobacco use and exposure 2017-05-06 00:00:00 2017-05-06 00:00:00 Smokeless tobacco non-user [facility] Cigarettes smoked current (pack per day) - Reported 2017-05-06 00:00:00 2017-05-06 00:00:00 [facility] Cigarette pack-years 2017-05-06 00:00:00 2017-05-06 00:00:00 [facility] Alcohol Comment 2017-05-06 00:00:00 2017-05-06 00:00:00 socially [facility] Sex assigned at 1990 00:00:00 1990 00:00:00 [facility] Smoking Status Start Date Stop Date Source Smokes tobacco daily 2017-05-06 00:00:00 [facility] Medications Ordered Medication Name Filled Medication Name Start Date Stop Date Current Medication? Ordering Clinician Indication Dosage Frequency Signature (SIG) Comments Components Source ketorolac (TORADOL) injection 30 mg 03-13 22:15: 00 03-13 22:22 :00 No 30mg 30 mg, Slow IV Push, ONCE, 1 dose, On Marcelina 03/13/25 at 1715, Routine [facility] NaCl 0.9% (NS) bolus infusion 1,000 mL 03-13 21:30: 00 03-14 00:10 :00 No 1000mL at 999 mL/hr, 1,000 mL, IV Infusion, ONCE, 1 dose, On Marcelina 03/13/25 at 1630, Routine [facility] dexamethaso ne sod phos PF injection 10 mg 03-13 21:30: 00 03-13 22:22 :00 No 10mg 10 mg, Slow IV Push, ONCE, 1 dose, On Marcelina 03/13/25 at 1630, 1 mL [facility] metoclopram mayuri HCl (REGLAN) injection 10 mg 03-13 21:30: 00 03-13 22:22 :00 No 10mg 10 mg, Slow IV Push, ONCE, 1 dose, On Marcelina 03/13/25 at 1630, ONEIL [facility] diphenhydrA MINE (BENADRYL) injection 25 mg 03-13 21:30: 00 03-13 22:22 :00 No 25mg 25 mg, Slow IV Push, ONCE, 1 dose, On Marcelina 03/13/25 at 1630, STAT [facility] butalbital- acetaminoph en-caff 50-325-40 mg tablet 03-13 00:00: 00 Yes [id number] 1{tbl} Take 1 tablet by mouth every 6 hours as needed for Pain (scale 7-10). [facility] ondansetron 4 mg disintegrat ing tablet 03-13 00:00: 00 Yes [id number] 4mg Take 1 tablet by mouth every 8 hours as needed for Nausea and Vomiting (N/V). [facility] valACYclovi r 1 gram tablet 03-13 00:00: 00 03-21 04:59 :00 No [id number] 1g Take 1 tablet by mouth in the morning and 1 tablet in the evening. Do all this for 7 days. [facility] dexamethaso ne sod phos PF injection 10 mg 03-12 04:00: 00 03-12 04:06 :00 No 10mg 10 mg, Slow IV Push, ONCE, 1 dose, On Mon03/11/25 at 2300, 1 mL [facility] ketorolac (TORADOL) injection 30 mg 03-12 01:15: 00 03-12 01:00 :00 No 30mg 30 mg, Slow IV Push, ONCE, 1 dose, On Mon03/11/25 at 2014, Routine [facility] NaCl 0.9% (NS) bolus infusion 1,000 mL 03-12 01:15: 00 03-12 01:54 :00 No 1000mL at 999 mL/hr, 1,000 mL, IV Infusion, ONCE, 1 dose, On Mon03/11/25 at 2015, ONEIL [facility] buPROPion SR (WELLBUTRIN SR) 150 mg SR tablet 03-12 00:58: 50 Yes 150mg Take 150 mg by mouth 2 (two) times daily. [facility] busPIRone 10 mg tablet 03-12 00:58: 50 Yes 10mg Take 10 mg by mouth 2 (two) times daily. [facility] cloNIDine 0.1 mg tablet 03-12 00:58: 50 Yes .1mg Take 1 tablet by mouth once now. [facility] diphenhydrA MINE (BENADRYL) injection 25 mg 03-12 00:30: 00 03-12 00:59 :00 No 25mg 25 mg, Slow IV Push, ONCE, 1 dose, On Mon03/11/25 at 1930, STAT [facility] metoclopram mayuri HCl (REGLAN) injection 10 mg 03-12 00:30: 00 03-12 01:01 :00 No 10mg 10 mg, Slow IV Push, ONCE, 1 dose, On Mon03/11/25 at 1930, ONEIL [facility] SUMAtriptan (IMITREX) 5 mg/actuatio n nasal spray 03-12 00:00: 00 Yes [id number] 5mg Use 1 [place] in each nostril as needed for Migraine. 1 spray in each nostril as directed. Dose may be repeated once after 2 hrs, not to exceed 8 sprays per 24 hours. [facility] Mucinex DM 30 mg-600 mg tablet,exte nded release 12 hr 06-14 00:00: 00 Yes 1mg Homer Montgomery cefdinir 300 mg capsule 06-14 00:00: 00 Yes 1mg Homer [facility] Mucinex D 60 mg-600 mg tablet,exte nded release 06-07 00:00: 00 Yes 2mg Homer [facility] Flonase Allergy Relief 50 mcg/actuati on nasal spray,suspe nsion 06-07 00:00: 00 Yes 2mcg/ac tuation Homer Montgomery lamotrigine 100 mg tablet 05-24 00:00: 00 Yes 1mg Homer [facility] Wellbutrin XL 150 mg 24 hr tablet, extended release 05-24 00:00: 00 Yes 1mg Homer Montgomery fluoxetine 20 mg capsule 04-03 00:00: 00 Yes mg Homer Montgomery lamotrigine 100 mg tablet 04-03 00:00: 00 Yes 1mg Homer Montgomery lamotrigine 25 mg tablet - 00:00: 00 Yes mg Homer Montgomery fluoxetine 20 mg capsule - 00:00: 00 Yes mg Homer Montgomery TAKE 1 TABLET BY MOUTH EVERY 12 HOURS NEEDED -12 00:00: 00 Yes Homer Montgomery TAKE 1 TABLET BY MOUTH 4 TIMES A DAY -12 00:00: 00 Yes Homer Montgomery lamotrigine 25 mg tablet - 00:00: 00 Yes mg Homer Montgomery fluoxetine 20 mg capsule 2- 00:00: 00 Yes mg Homer Montgomery TAKE 2 TABLETS BY MOUTH DAILY 2- 00:00: 00 Yes 25 Homer Montgomery TAKE TWO (2) TABLETS BY MOUTH DAILY. 2- 00:00: 00 Yes 25 Homer Montgomery TAKE 2 TABLETS BY MOUTH DAILY 2022-09 1- 00:00: 00 Yes Homer Montgomery TAKE 3 CAPSULES BY MOUTH DAILY 2022-09 1- 00:00: 00 Yes Homer Montgomery TAKE 2 TABLETS BY MOUTH DAILY 2022-09 1-02 00:00: 00 01-16 00:00 :00 No 25 Homer Montgomery LAMOTRIGINE 2022-09 0-05 00:00: 00 Yes Homer Montgomery TAKE 1 TABLET BY MOUTH EVERY DAY FOR 2 WEEKS. INCREASE TO 2 TABLETS AFTER 2 WEEKS 2022-09 0-04 00:00: 00 Yes Homer Montgomery TAKE 1 PO QD FOR 2 WEEKS INCREASE TO 2 PILLS AFTER 2 WEEKS 2022-09 0-04 00:00: 00 01-16 00:00 :00 No 25 Homer Montgomery TAKE 3 CAPSULES DAILY 2022-09 0- 00:00: 00 01-16 00:00 :00 No 20 Homer Montgomery TAKE 1 TABLET BY MOUTH DAILY 2022-09 0 00:00: 00 Yes Homer Montgomery DICYCLOMINE 2022-09 0 00:00: 00 Yes Homer Montgomery ONDANSETRON ODT 2022-09 0 00:00: 00 Yes Homer Montgomery TAKE 3 CAPSULES DAILY 9-06 00:00: 00 01-16 00:00 :00 No 20 Homer Montgomery FLUOXETINE 6-04 00:00: 00 Yes Homer Montgomery TAKE ONE (1) CAPSULE(S) BY MOUTH ONCE A DAY. 02-01 00:00: 00 Yes Homer Montgomery TAKE 1 TABLET TWICE DAILY. 10-12 00:00: 00 01-16 00:00 :00 No 10 Homer Montgomery TAKE 1 CAPSULE BY MOUTH ONCE DAILY 1 00:00: 00 01-16 00:00 :00 No 40 Homer Montgomery OSELTAMIVIR CAP 75MG 2021-09 2-09 00:00: 00 Yes Homer Montgomery TAKE ONE (1) CAPSULE(S) BY MOUTH THREE TIMES A DAY NEEDED FOR COUGH. 2021-09 00:00: 00 Yes Homer Montgomery VENTOLIN HFA AER 2021-09- 00:00: 00 Yes Homer Montgomery FLUOXETINE 2022-1 1-16 00:00: 00 Yes Homer Montgomery FLUOXETINE - 00:00: 00 Yes 40 Homer Montgomery VALACYCLOVI R TAB 500MG - 00:00: 00 Yes Homer Montgomery Dose Unknown - 00:00: 00 Yes Homer Montgomery &lt 6-09 00:00: 00 Yes Homer Montgomery fluoxetine 40 mg capsule 02-01 00:00: 00 Yes 1mg Homer Montgomery fluoxetine 20 mg tablet - 00:00: 00 Yes 1mg Homer Montgomery buspirone 5 mg tablet 11-17 00:00: 00 Yes 1mg Homer Montgomery hydroxyzine HCl 25 mg tablet 11-17 00:00: 00 Yes 1mg Homer Montgomery VALACYCLOVI R 2- 00:00: 00 Yes 500 Homer Montgomery Mirena 20 mcg/24 hours (7 yrs) 52 mg intrauterin e device - 00:00: 00 Yes 1(7 yrs) 52 mg Homer Montgomery fluoxetine 20 mg tablet 2- 00:00: 00 Yes 1mg Homer Montgomery fluoxetine 20 mg tablet 1- 00:00: 00 Yes 1mg Homer Montgomery venlafaxine 37.5 mg tablet 10-04 00:00: 00 Yes 1mg Homer Montgomery amoxicillin 875 mg-potassiu m clavulanate 125 mg tablet 2020-09 2- 00:00: 00 Yes 1mg Homer Montgomery amoxicillin 875 mg-potassiu m clavulanate 125 mg tablet 2020-09 2- 00:00: 00 Yes 1mg Homer Montgomery benzonatate 100 mg capsule 2020-09 2- 00:00: 00 Yes 1mg Homer Montgomery buPROPion SR (WELLBUTRIN SR) 150 mg SR tablet 04-29 16:58: 11 Yes 150mg Take 150 mg by mouth 2 (two) times daily. [facility] busPIRone 10 mg tablet 04-29 16:58: 11 Yes 10mg Take 10 mg by mouth 2 (two) times daily. [facility] Vital Signs Vital Name Observation Time Observation Value Comments Ruma moralez Systolic blood pressure 2025-03-14 00:13:00 139 mm[Hg] [facility] Diastolic blood pressure 2025-03-14 00:13:00 88 mm[Hg] [facility] Heart rate 2025-03-14 00:13:00 73 /min Unive [facility] Body temperature 2025-03-14 00:13:00 36.94 Ly [facility] Respiratory rate 2025-03-14 00:13:00 16 /min [facility] Oxygen saturation in Arterial blood by Pulse oximetry 2025-03-14 00:13:00 98 /min [facility] Body height 2025-03-13 20:41:00 157.5 cm [facility] Body weight 2025-03-13 20:41:00 99.791 kg [facility] BMI 2025-03-13 20:41:00 40.24 kg/m2 [facility] Systolic blood pressure 2025-03-12 04:12:00 129 mm[Hg] [facility] Diastolic blood pressure 2025-03-12 04:12:00 85 mm[Hg] [facility] Heart rate 2025-03-12 04:12:00 87 /min [facility] Body temperature 2025-03-12 04:12:00 36.94 Ly [facility] Respiratory rate 2025-03-12 04:12:00 15 /min [facility] Oxygen saturation in Arterial blood by Pulse oximetry 2025-03-12 04:12:00 95 /min [facility] Body height 2025-03-12 00:10:00 157.5 cm [facility] Body weight 2025-03-12 00:10:00 99.791 kg [facility] BMI 2025-03-12 00:10:00 40.24 kg/m2 [facility] Systolic blood pressure 2019-10-30 15:04:00 126 mm[Hg] [facility] Diastolic blood pressure 2019-10-30 15:04:00 86 mm[Hg] [facility] Heart rate 2019-10-30 15:04:00 67 /min Unive [facility] Body temperature 2019-10-30 15:04:00 36.5 Ly [facility] Respiratory rate 2019-10-30 15:04:00 16 /min [facility] Body height 2019-10-30 15:04:00 157.5 cm [facility] Body weight 2019-10-30 15:04:00 91.315 kg [facility] BMI 2019-10-30 15:04:00 36.82 kg/m2 [facility] Systolic blood pressure 2019-10-30 15:04:00 126 mm[Hg] [facility] Diastolic blood pressure 2019-10-30 15:04:00 86 mm[Hg] [facility] Heart rate 2019-10-30 15:04:00 67 /min [facility] Body temperature 2019-10-30 15:04:00 36.5 Ly [facility] Respiratory rate 2019-10-30 15:04:00 16 /min [facility] Body height 2019-10-30 15:04:00 157.5 cm [facility] Body weight 2019-10-30 15:04:00 91.315 kg [facility] BMI 2019-10-30 15:04:00 36.82 kg/m2 [facility] Heart Rate 2024-06-14 08:22:00 84.00 /min Janice en F Ulises Respiratory Rate 2024-06-14 08:22:00 98.70 /min Homer [facility] BP Systolic 2024-06-14 08:22:00 100 mm[Hg] Will Montgomery BP Diastolic 2024-06-14 08:22:00 80 mm[Hg] Maximo Montgomery Weight Measured 2024-06-14 08:22:00 236.00 pounds Homer Montgomery Height Measured 2024-06-14 08:22:00 62.00 inches Homer Montgomery Body Temperature 2024-06-14 08:22:00 Homer Montgomery Weight Measured 2024-06-07 11:36:00 Homer F [facility]ises Height Measured 2024-06-07 11:36:00 Homer F [facility] Body Temperature 2024-06-07 11:36:00 Homer F [facility] Heart Rate 2024-06-07 11:36:00 Janice en F [facility] Respiratory Rate 2024-06-07 11:36:00 Homer F Ulises BP Systolic 2024-06-07 11:36:00 Step hen F [facility] BP Diastolic 2024-06-07 11:36:00 Maximo phen F [facility] BP Systolic 2022-05-09 14:34:00 Step hen F [facility] BP Diastolic 2022-05-09 14:34:00 Maximo phen F [facility] Weight Measured 2022-05-09 14:34:00 190.00 pounds Homer F Ulises Height Measured 2022-05-09 14:34:00 62.00 inches Homer F [facility] Body Temperature 2022-05-09 14:34:00 Homer F Ulises Heart Rate 2022-05-09 14:34:00 Janice en F [facility] Respiratory Rate 2022-05-09 14:34:00 Homer F Ulises BP Systolic 2022-02-01 10:15:00 Step hen F Ulises BP Diastolic 2022-02-01 10:15:00 Maximo phen F [facility] Weight Measured 2022-02-01 10:15:00 223.00 pounds Homer F Ulises Height Measured 2022-02-01 10:15:00 62.00 inches Homer F [facility] Body Temperature 2022-02-01 10:15:00 Homer F [facility]ises Heart Rate 2022-02-01 10:15:00 Janice en F [facility] Respiratory Rate 2022-02-01 10:15:00 Homer F Ulises BP Systolic 2021-10-28 14:45:00 140 mm[Hg] Step hen F [facility]ises BP Diastolic 2021-10-28 14:45:00 93 mm[Hg] Maximo phen F [facility] Weight Measured 2021-10-28 14:45:00 223.40 pounds Homer F Ulises Height Measured 2021-10-28 14:45:00 62.00 inches Homer F [facility] Body Temperature 2021-10-28 14:45:00 98.70 degrees Homer F Ulises Heart Rate 2021-10-28 14:45:00 80.00 /min Janice en F [facility] Respiratory Rate 2021-10-28 14:45:00 16.00 /min Homer Montgomery BP Systolic 2021-09-24 10:07:00 Will Montgomery BP Diastolic 2021-09-24 10:07:00 Maximo Montgomery Weight Measured 2021-09-24 10:07:00 220.00 pounds Homer Montgomery Height Measured 2021-09-24 10:07:00 62.00 inches Homer Montgomery Body Temperature 2021-09-24 10:07:00 Homer Montgomery Heart Rate 2021-09-24 10:07:00 Janice en Gilda Montgomery Respiratory Rate 2021-09-24 10:07:00 Homer Montgomery Procedures Procedure Date / Time Performed Performing Clinicia n Source COMP. METABOLIC PANEL (78553) 2025-03-13 23:23:00 Mckayla Torre [facility] CBC WITH DIFF 2025-03-13 22:26:00 [facility]ckay[facility]re [facility] 2025-03-13 22:26:00 [facility] 2025-03-13 22:03:00 Mckayla Torre [facility] POCT TEST 2025-03-12 02:08:00 Rosalinda Garza ra [facility] URINALYSIS 2025-03-12 01:59:00 Fatuma Garza [facility] COMP. METABOLIC PANEL (33800) 2025-03-12 01:05:00 Fatuma Garza [facility] CBC WITH DIFF 2025-03-12 01:05:00 [facility]/B RSV COVID NAAT 2025-03-12 01:05:00 Fatuma Garza [facility] [id number] 2020-06-02 00:00:00 [facility] POCT TEST 2019-10-30 15:19:00 Dav Smith [facility] ASSIGNMENT OF BENEFITS 2019-10-30 14:15:55 Docto r Unassigned, Mckee [facility] Encounters Start Date/Time End Date/Time Encounter Type Admission Type Attending [facility] Facility Care Department Encounter ID Source 2020-06-10 08:30:00 Inpatient Jordana Park [facility] LD [id number] [facility] 2020-06-03 00:49:00 Inpatient Karen Love [facility] [id number] [facility] 2020-05-27 14:21:00 Inpatient Karen Love [facility] [id number] [facility] 2025-07-04 14:15:00 2025-07-04 14:15:00 Outpatient R GERALD JOHNSON [facility] [id number] [facility] 2025-03-13 15:44:00 2025-03-13 19:16:00 Emergency X MCKAYLA TORRE TASHA [facility] ERT [id number] [facility] 2025-03-11 19:19:00 2025-03-12 00:58:00 Emergency X Fatuma Garza [facility] [id number] [facility] 2024-09-19 13:59:02 2024-09-19 13:59:02 Outpatient SFA [facility] [id number] [facility] 2024-07-22 14:26:57 2024-07-22 14:26:57 Outpatient SFA [facility] [id number] Homer Montgomery 2024-06-26 08:11:51 2024-06-26 08:11:51 Outpatient SFA [facility]FA [id number] Homer Montgomery 2024-06-14 08:22:33 2024-06-14 08:22:33 Outpatient SFA [facility] [id number] Homer Montgomery 2024-06-14 00:00:00 2024-06-14 00:00:00 Outpatient Visit SFA [id number] Homer Montgomery 2024-06-07 11:36:40 2024-06-07 11:36:40 Outpatient SFA [facility] 09 [place] 2024-06-07 00:00:00 2024-06-07 00:00:00 Outpatient Visit [facility] [id number] Homer Vo [place] 2024-06-05 13:02:42 2024-06-05 13:02:42 Outpatient [facility] 917 [place] 2024-05-24 13:17:28 2024-05-24 13:17:28 Outpatient [facility] 905 [place] 2024-04-03 08:16:26 2024-04-03 08:16:26 Outpatient [facility] [id number] [place] 2024-03-08 10:49:20 2024-03-08 10:49:20 Outpatient [facility] [id number] [place] 2019-10-30 08:54:48 2019-10-30 09:23:28 [facility] CHEMICAL SALES REPRESENTATIVE [facility] 1..840.114 [id number] [id number] [id number] [facility] 2019-10-30 08:54:48 2019-10-30 09:23:28 Nurse Visit Visit, Mik-[facility] Nurse [facility] CHEMICAL SALES REPRESENTATIVE [facility] [id number] [id number] 2019-10-30 00:00:00 2019-10-30 00:00:00 Orders Only Doctor Unassigned, Mckee [facility] [id number] [facility] 2019-10-30 00:00:00 2019-10-30 00:00:00 Orders Only Doctor Unassigned, Mckee [facility] [id number] [id number] [id number] [id number] Results Test Description Test Time Test Comments Results Result Co mments Source [facility] WITH [id number] 23:49:03* Test Item Value Reference Range Interpretation Comme nts WBC (test code = 6690-2) 9.23 4.30-11.10 RBC (test code = 789-8) 4.13 3.93-5.25 HGB (test code = 718-7) 13 g/dL 11.6-15.0 HCT (test code = 4544-3) 39 % 35.7-45.2 MCV (test code = 787-2) 94.4 fL 80.6-95.5 MCH (test code = 785-6) 31.5 pg 25.9-32.8 MCHC (test code = 786-4) 33.3 g/dL 31.6-35.1 RDW-SD (test code = 10559-5) 43.5 fL 39.0-49.9 RDW-CV (test code = 788-0) 12.6 % 12.0-15.5 PLT (test code = 777-3) 116 166-358 L MPV (test code = 76693-1) 13.1 fL 9.5-12.9 H IPF % (test code = 2554679722) 16.2 % 1.3-7.7 H Platelet count measured by fluorescence method. NRBC/100 WBC (test code = 4681376615) 0 0.0-10.0 NRBC x10^3 (test code = 7525924798) See_Comment [Automated [employer]] The system which generated this result transmitted reference range: 10*3/?L. The reference range was not used to interpret this result as normal/abnormal. GRAN MAT (NEUT) % (test code = 770-8) 57.6 % IMM GRAN % (test code = 6683252805) 0.3 % LYMPH % (test code = 736-9) 34 % MONO % (test code = 5905-5) 6.8 % EOS % (test code = 713-8) 0.5 % BASO % (test code = 706-2) 0.8 % GRAN MAT x10^3(ANC) (test code = 9946201450) 5.31 10*3/uL 1.88-7.09 IMM GRAN x10^3 (test code = 5369473270) 0.03 10*3/uL 0.00-0.06 LYMPH x10^3 (test code = 731-0) 3.14 10*3/uL 1.32-3.29 MONO x10^3 (test code = 742-7) 0.63 10*3/uL 0.33-0.92 EOS x10^3 (test code = 711-2) 0.05 10*3/uL 0.03-0.39 BASO x10^3 (test code = 704-7) 0.07 10*3/uL 0.01-0.07 Lab Interpretation (test code = 35564-5) Abnormal [facility] [id number] 22:03:00* Test Item Value Reference Range Interpretation Comme nts POCT PREG (test code = 1605) Negative On board controls acceptable with C Line (test code = 3574) Yes POCT PREG LOT # (test code = 3575) [id number] POCT PREG TEST DATE ( test code = 3576) 2026-07-04 Lab Interpretation (test cod e = 06742-1) Normal [facility] [id number] 02:08:00* Test Item Value Reference Range Interpretation Comme nts POCT PREG (test code = 1605) Negative On board controls acceptable with C Line (test code = 3574) Yes POCT PREG LOT # (test code = 3575) [id number] POCT PREG TEST DATE ( test code = 3576) 2026-07-04 Lab Interpretation (test cod e = 57698-0) Normal [facility]. METABOLIC PANEL (65556)2025-03-12 01:28:14* Test Item Value Reference Range Interpretation Comme nts NA (test code = 8421314264) 134 mmol/L 135-145 L K (test code = 6810904089) 3.8 mmol/L 3.5-5.0 CL (test code = 6251744160) 104 mmol/L 98-108 CO2 TOTAL (test code = 2981437698) 18 mmol/L 23-31 L AGAP (test code = 9402571260) 12 2-16 BUN (test code = 5211054537) 8 mg/dL 7-23 GLUCOSE (test code = 9220088222) 111 mg/dL 70-110 H CREATININE (test code = 2160-0) 0.84 mg/dL 0.50-1.04 TOTAL BILI (test code = 7908319938) 1.1 mg/dL 0.1-1.1 CALCIUM (test code = 4722351319) 8.9 mg/dL 8.6-10.6 T PROTEIN (test code = 6568076159) 7.5 g/dL 6.3-8.2 ALBUMIN (test code = 1004969541) 4.5 g/dL 3.5-5.0 ALK PHOS (test code = 4483637962) 72 U/L 34-122 ALTv (test code = 1742-6) 21 U/L 5-35 AST(SGOT) (test code = 1721767907) 18 U/L 13-40 eGFR (test code = 51748-6) 93.1 mL/min/1.73m2 CKD-EPI eGFR (2020). Assuming creatinine has been stable day-to-day for at least three months, the eGFR indicates Category G1 (>= 90 mL/min/1.73 m2) Lab Interpretation (test code = 36693-8) Abnormal [facility] WITH [id number] 01:16:50* Test Item Value Reference Range Interpretation Comme nts WBC (test code = 6690-2) 16.59 4.30-11.10 H RBC (test code = 789-8) 4.34 3.93-5.25 HGB (test code = 718-7) 13.7 g/dL 11.6-15.0 HCT (test code = 4544-3) 40.2 % 35.7-45.2 MCV (test code = 787-2) 92.6 fL 80.6-95.5 MCH (test code = 785-6) 31.6 pg 25.9-32.8 MCHC (test code = 786-4) 34.1 g/dL 31.6-35.1 RDW-SD (test code = 69450-8) 42 fL 39.0-49.9 RDW-CV (test code = 788-0) 12.2 % 12.0-15.5 PLT (test code = 777-3) 252 166-358 MPV (test code = 96853-5) 11.2 fL 9.5-12.9 NRBC/100 WBC (test code = 2798750816) 0 0.0-10.0 NRBC x10^3 (test code = 4227207443) See_Comment [Automated message] The system which generated this result transmitted reference range: 10*3/?L. The reference range was not used to interpret this result as normal/abnormal. GRAN MAT (NEUT) % (test code = 770-8) 85 % IMM GRAN % (test code = 1228086744) 0.4 % LYMPH % (test code = 736-9) 9.3 % MONO % (test code = 5905-5) 4.9 % EOS % (test code = 713-8) 0.1 % BASO % (test code = 706-2) 0.3 % GRAN MAT x10^3(ANC) (test code = 3062695044) 14.09 10*3/uL 1.88-7.09 H IMM GRAN x10^3 (test code = 6851748814) 0.07 10*3/uL 0.00-0.06 H LYMPH x10^3 (test code = 731-0) 1.55 10*3/uL 1.32-3.29 MONO x10^3 (test code = 742-7) 0.82 10*3/uL 0.33-0.92 EOS x10^3 (test code = 711-2) 0.03-0.39 L BASO x10^3 (test code = 704-7) 0.05 10*3/uL 0.01-0.07 Lab Interpretation (test code = 55044-6) [facility]normal [facility]-PCR/[id number] 17:21:13* Test Item Value Reference Range Interpretation Comments SARS-CoV-2 INTERPRETATION (test code = 12763) POSITIVE SEE NOTE A SARS-CoV-2 RNA DETECTEDPositive results are indicative of the presence of SARS-CoV-2 RNA;clinical correlation with patient history and other diagnosticinformation is necessary to determine patient infection status.Positive results do not rule out bacterial infection or co-infectionwith other viruses. Positive and negative predictive values oftesting are highly dependent on prevalence. SOURCE (test code = 17974) NASOPHARYNGEAL Note: Methodolog y is Fannie Shu Real-Time RT-PCR. The expected result or reference range is NEGATIVE (Not Detected). For more information regarding COVID-19 testing to include clinicalinformation, methodology detail, intended use, FDA authorization andrecommended fact sheets for patients or healthcare providers, see [employer] Announcement: SARS-CoV-2 (COVID-19) by NAAT at URL below (note,fact sheets are provided by method given in report:[email or web address] -communications/ Alternatively, see downloadable PDF fact sheet at:https://www.[facility] [employer] om/TQIAK-06-ZT-PCR UNLESS OTHERWISE INDICATED, ALL TESTING PERFORMED [facility] [employer] [employer] [address] [place] [address] JUNIOR ACCOUNTING CLERK: YOBANI AQUINO M.D. CLIA NUMBER [id number] [facility] [place]. [id number] SARS-CoV-2 (COVID-19) by RT-PCR (HIGH RISK)2021-09-26 00:00:00* Test Item Value Reference Range Interpretation Comme nts SARS-CoV-2 INTERPRETATION (test code = 83391) POSITIVE SOURCE (test code = 11648) NASOPHARYNGEAL Homer MontgomerySARS-CoV-2 (COVID-19) by RT-PCR (HIGH RISK)2021-09-26 00:00:00* Test Item Value Reference Range Interpretation Comme nts SARS-CoV-2 INTERPRETATION (test code = 37591) POSITIVE SOURCE (test code = 88102) NASOPHARYNGEAL Homer MontgomeryPLACENTA THIRD [id number] 09:15:00 RUN DATE: 06/11/20 [facility] PAGE 1 RUN TIME: 1313 Specimen Inquiry RUN USER: INTERFACE ------- -----PATIENT: BRANDY OLIVIA LOC: [facility] U #: [id number] AGE/SX: ROOM: 2016 RE06/03/20REGDR: Karen Mae MD : 88 BED: A DIS: 06/06/20 STATUS: DIS IN TLOC: SPEC #: [id number] RECD: 06/02/20 STATUS: ANDREINA RE #: [id number] LARA: 06/02/20- SUBM DR: Karen Mae MD ENTERED: 06/03/20-913 SP TYPE: PLACIII OTHR DR: ORDERED: LEVEL V SURGICA CODES: DL5943 - PLACENTA, NOS PROCEDURES: LEVEL V SURGICA [...] membranes - patchy increase in perivillous fibrinoid -umbilical cord: insertion 2 cm from margin, 3-vessel, 15 cm length - actual placental weight: actual 465 gm Placenta B (2 cord clamps): - third trimester villous architecture - no inflammation of umbilical cord or membranes - umbilical cord: velamentous insertion, 3-vessel, 15 cm length - actual placental weight: actual 340 gm CPT code(s): 84042 x2 cds/kr GROSS DESCRIPTION The specimen is received in a formalin-filled container, labeled with the patient's name and designated "placenta, twins". The specimen consists of a single placental disk with two attached umbilical cords and a cortes-pink semi-translucent dividing membrane. The placenta with one cord clamp is designated Placenta A and the one with two cord clamps as Placenta B. CONTINUED ON NEXT PAGE RUN DATE: 06/11/20 [facility] PAGE 2 RUN TIME: 1313 Specimen Inquiry RUN USER: INTERFACE SPEC #: [id number] PATIENT: BRANDY OLIVIA #[id number] (Continued) GROSS DESCRIPTION (Continued) PLACENTA A Cord [...] measurement: 20 x 14 x 4 cm ingreatest dimension Accessory lobes: None Maternal surface: Lobulated [...] disrupted, completeness cannot be determined Parenchyma: Red-brown andspongy Parenchyma lesions: None Cassettes: A5 - dividing membrane and T-zone, A6 through A9 - placenta B isabella 06/03/20 Signed Dave Dodd 06/11/20 0915 END OF REPORT HGB [id number] 10:01:00* Test Item Value Reference Range Interpretation Comme [facility] HEMOGLOBIN (test code = HGB) 11.4 g/dL 10.7-13.9 N HEMATOCRIT (test code = HCT) 36.0 % 32.1-42.1 N CAPILLARY BLOOD [id number] 23:49:00* Test Item Value Reference Range Interpretation Comme [facility] CAPILLARY BLOOD GAS PH (test code = [...] code = FIO2C) 21.0 % CAPILLARY BLOOD [id number] 23:49:00* Test Item Value Reference Range Interpretation Comme [facility] CAPILLARY BLOOD GAS PH (test code = [...] code = FIO2C) 21.0 % CAPILLARY BLOOD [id number] 23:47:00* Test Item Value Reference Range Interpretation Comme [facility] CAPILLARY BLOOD GAS PH (test code = [...] code = FIO2C) 21.0 % CAPILLARY BLOOD [id number] 23:46:00* Test Item Value Reference Range Interpretation [...] code = FIO2C) 21.0 % COMPREHENSIVE METABOLIC [id number] 17:38:00* Test Item Value Reference Range Interpretation [...] = ALKP) 231 units/L 46-116 H URIC [id number] 17:38:00* Test Item Value Reference Range Interpretation Comme nts URIC ACID (test code = URIC) 4.3 mg/dL 2.6-6.0 N LACTIC DEHYDROGENASE(LDH)2020-06-02 17:38:00* Test Item Value Reference Range Interpretation Comme nts LACTIC DEHYDROGENASE(LDH) (t est code = LDH) 140 units/L 81-234 N COVID 19 Asymptomatic IH [id number] 17:30:00* Test Item Value Reference Range Interpretation [...] testsfor detection and/or diagnosis of COVID-19 under Awdoazd890(b)(1) of the Act, 21 U.S.C. 360bbb-3(b)(1), unless theauthorization is terminated or revoked sooner. CBC W/AUTO [id number] 17:18:00* Test Item Value Reference Range Interpretation [...] code = PLTMR) NORMAL NORMAL UR PROTEIN/CREATININE [id number] 01:17:00* Test Item Value Reference Range Interpretation Comme nts UR PROTEIN RANDOM (test code = PROTU) 13.4 mg/dL UR CREATININE RANDOM (test code = CREATU) 42.9 mg/dL PROTEIN/CREATININE RATIO (te st code = P/CRATIO) 310.0 mg/gcrea <200 H AG HEPATITIS B [id number] 20:07:00* Test Item Value Reference Range Interpretation Comme nts AG HEPATITIS B SURFACE (test code = HBSAG) NONREACTIVE NONREACTIVE AB HEPATITIS C [id number] 20:07:00* Test Item Value Reference Range Interpretation Comme nts AB HEPATITIS C (test code = HCVAB) NONREACTIVE NONREACTIVE SIGNAL TO CUTOFF (test code = CUTOFF) 0.23 <0.80 N AB [id number] 20:07:00* Test Item Value Reference Range Interpretation Comme nts AB TREPONEMA (test code = TREPAB) NONREACTIVE NONREACTIVE AB HIV 1 20:07:00* Test Item Value Reference Range Interpretation Comme nts AB HIV 1 2 (test code = AGR23CW) NONREACTIVE NONREACTIVE Done by [employer] Gen HIV Ag/Ab Combo Screen AG HEPATITIS B [id number] 18:42:00* Test Item Value Reference Range Interpretation Comme nts AG HEPATITIS B SURFACE (test code = HBSAG) NONREACTIVE NONREACTIVE AB HEPATITIS C [id number] 18:42:00* Test Item Value Reference Range Interpretation Comme nts AB HEPATITIS C (test code = HCVAB) NONREACTIVE SIGNAL TO CUTOFF (test code = CUTOFF) <0.80 AB [id number] 18:42:00* Test Item Value Reference Range Interpretation Comme nts AB TREPONEMA (test code = TREPAB) NONREACTIVE NONREACTIVE AB HIV 1 18:42:00* Test Item Value Reference Range Interpretation Comme nts AB HIV 1 2 (test code = ZUZ09RL) NONREACTIVE AG HEPATITIS B [id number] 18:25:00* Test Item Value Reference Range Interpretation Comme nts AG HEPATITIS B SURFACE (test code = HBSAG) NONREACTIVE AB HEPATITIS C [id number] 18:25:00* Test Item Value Reference Range Interpretation Comme nts AB HEPATITIS C (test code = HCVAB) NONREACTIVE SIGNAL TO CUTOFF (test code = CUTOFF) <0.80 AB [id number] 18:25:00* Test Item Value Reference Range Interpretation Comme nts AB TREPONEMA (test code = TREPAB) NONREACTIVE NONREACTIVE AB HIV 1 18:25:00* Test Item Value Reference Range Interpretation Comme nts AB HIV 1 2 (test code = DBT83FY) NONREACTIVE COMPREHENSIVE METABOLIC [id number] 18:08:00* Test Item Value Reference Range Interpretation [...] = ALKP) 222 units/L 46-116 H URIC [id number] 18:08:00* Test Item Value Reference Range Interpretation Comme nts URIC ACID (test code = URIC) 4.5 mg/dL 2.6-6.0 N LACTIC DEHYDROGENASE(LDH)2020-05-27 18:08:00* Test Item Value Reference Range Interpretation Comme nts LACTIC DEHYDROGENASE(LDH) (t est code = LDH) 141 units/L 81-234 N CBC W/AUTO [id number] 17:22:00* Test Item Value Reference Range Interpretation [...] PLTMR) NORMAL NORMAL COVID 19 Asymptomatic IH [id number] 16:12:00* Test Item Value Reference Range Interpretation [...] testsfor detection and/or diagnosis of COVID-19 under Jaqtnhf464(b)(1) of the Act, 21 U.S.C. 360bbb-3(b)(1), unless theauthorization is terminated or revoked sooner. POCT [id number] 15:19:00* Test Item Value Reference Range Interpretation Comme nts POCT PREG (test code = 1605) Positive On board controls acceptable with C Line (test code = 3574) Yes POCT PREG LOT # (test code = 3575) POCT PREG TEST DATE ( test code = 3576) [facility] Notes Date/Time Note Provider Source 2025-03-13 19:15:27 Pt given printed and verbal discharge instructions regarding acute intractable headache, Hx of herpes genitalis, and encouraged hydration. Prescription x3 sent to pharmacy Discussed esgic side affects and to avoid driving/operating machinery/or engaging in activities requiring alertness while taking. Pt verbalized understanding of instructions, pt awake alert oriented, resp reg unlabored, skin w/d, color appropriate for race, moves all ext well,pt encouraged to follow up with pcp. Advised to seek medical attention for new/prolonged/worsening of symptoms. No adverse reaction to meds given in ER noted upon discharge PIV d'cd, dressing to site, catheter in tact. Awake, alert oriented, resp reg unlabored, skin w/d, pt leaving ambulatory without assist, in no apparent distress, Isabelle Hager RN [facility] 2025-03-13 15:38:41 Pt arrived ambulatory with complaints of mid back pain radiating all the way down her legs. Pt states she was dx with viral meningitis two days ago but her body is hurting and she can't get relief. Pt also states 3 episodes of bloody stools this morning. Pt took Decadron 4 hours ago Hx: Herpes virus (unsure if that could be causing issues) Was prescribed sumatriptan but unable to afford it. Dorcas Head RN [facility] 2025-03-12 00:58:01 Patient given discharge instructions, and verbalized no further concern or questions. Skin p/w/d, rr equal and non labored. A&Ox4. Ambulated independently with a steady gait in stable condition. La Valerio RN [facility] 2025-03-11 19:14:42 PT to triage with a CC of NUNEZ, Bilateral flank pain, radiating down. PT states she was treated for the NUNEZ today at another hospital with no relief. PT was told to F/U with Neurologist but has not made APT as of today. MD at triage see remaining triage note. 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 treatment: None Travel and Exposure Screening: Symptoms Does patient have any of these symptoms?: (not recorded) Exposure Screening Has patient had contact with someone with a communicable disease in the last month?: (not recorded) Diseases exposed to:: (not recorded) Is Patient ?: (not recorded) Exposure Date: (not recorded) Chief Complaint: Chief Complaint Patient presents with Headache History of Present Illness: History of Present Illness The patient presents from home for evaluation of her bilateral lower back pain as well as a headache that started yesterday and has progressively gotten worse. She denies any injury or trauma. No fevers or chills. No nausea or vomiting. She reports her headache is worse with looking up or down. Blurry vision. No dysuria but she does complain of urinary frequency. No weakness or numbness to her legs bilaterally. No change in her back pain with bending and movement. She reports she did go to [place] emergency department earlier today and was given a migraine cocktail and had a CT of her head which was unremarkable. She reports she still with a headache when she was discharged. She does have a history of high blood pressure and takes clonidine 0.1 mg nightly. No history of diabetes. She denies being . Here for evaluation. Past Medical History/Immunizations: History reviewed. No pertinent past medical history. Tetanus received in last 5 years: No Allergies: No Known Allergies Past Social History: Tobacco Use Every Day; 0.5 packs/day; Smoked an average of 0.5 packs/day for 5.0 years; Types: Cigarettes Smokeless Tobacco: Never used smokeless tobacco. Alcohol Use Yes. Comments: socially Drug Use No. Sexual Activity Sexually active; Partners: Male; Control/Protection: Condom. Past Surgical History: History reviewed. No pertinent surgical history. Review of Systems: Review of Systems Constitutional: Negative for chills and fever. Respiratory: Negative for cough and shortness of breath. Cardiovascular: Negative for chest pain. Gastrointestinal: Negative for abdominal pain, nausea and vomiting. Genitourinary: Negative for dysuria. Musculoskeletal: Positive for back pain. Negative for arthralgias, neck pain and neck stiffness. Skin: Negative for wound. Neurological: Positive for headaches. Psychiatric/Behavioral: Negative for agitation. Endocrine: Negative for goiter. Physical Exam: Physical Exam ED Triage Vitals [03/11/25 1910] Weight 99.8 kg (220 lb) Actual or estimated Height 1.575 m (5' 2") BP (!) 176/114 Pulse 96 Resp 18 Temp 37.3 ?C (99.1 ?F) Temp source Oral SpO2 99 % Measured on Room air Physical Exam Vitals and nursing note reviewed. Constitutional: Appearance: Normal appearance. She is obese. HENT: Head: Normocephalic and atraumatic. Mouth/Throat: Mouth: Mucous membranes are dry. Cardiovascular: Rate and Rhythm: Normal rate. Pulses: Normal pulses. Pulmonary: Effort: Pulmonary effort is normal. No respiratory distress. Breath sounds: No wheezing. Abdominal: General: There is no distension. Palpations: Abdomen is soft. There is no mass. Tenderness: There is no abdominal tenderness. Hernia: No hernia is present. Musculoskeletal: General: Normal range of motion. Cervical back: Neck supple. No tenderness. Skin: General: Skin is warm and dry. Neurological: General: No focal deficit present. Mental Status: She is alert and oriented to person, place, and time. Radiology: No orders to display Lab Results: Lab Results CBC WITH DIFF - Abnormal Result Value Ref Range WBC 16.59 (*) 4.30 - 11.10 10*3/?L RBC 4.34 3.93 - 5.25 10*6/?L HGB 13.7 11.6 - 15.0 g/dL HCT 40.2 35.7 - 45.2 % MCV 92.6 80.6 - 95.5 fL MCH 31.6 25.9 - 32.8 pg MCHC 34.1 31.6 - 35.1 g/dL RDW-SD 42.0 39.0 - 49.9 fL RDW-CV 12.2 12.0 - 15.5 % PLT 252 166 - 358 10*3/?L MPV 11.2 9.5 - 12.9 fL NRBC/100 WBC 0.0 0.0 - 10.0 /100 WBCs NRBC x10 3 <0.01 10*3/?L GRAN MAT (NEUT) % 85.0 % IMM GRAN % 0.40 % LYMPH % 9.3 % MONO % 4.9 % EOS % 0.1 % BASO % 0.3 % GRAN MAT x10 3 (ANC) 14.09 (*) 1.88 - 7.09 10*3/uL IMM GRAN x10 3 0.07 (*) 0.00 - 0.06 10*3/uL LYMPH x10 3 1.55 1.32 - 3.29 10*3/uL MONO x10 3 0.82 0.33 - 0.92 10*3/uL EOS x10 3 <0.03 (*) 0.03 - 0.39 10*3/uL BASO x10 3 0.05 0.01 - 0.07 10*3/uL COMP. METABOLIC PANEL (33758) - Abnormal NA 134 (*) 135 - 145 mmol/L K 3.8 3.5 - 5.0 mmol/L CL 104 98 - 108 mmol/L CO2 TOTAL 18 (*) 23 - 31 mmol/L AGAP 12 2 - 16 BUN 8 7 - 23 mg/dL GLUCOSE 111 (*) 70 - 110 mg/dL CREATININE 0.84 0.50 - 1.04 mg/dL TOTAL BILI 1.1 0.1 - 1.1 mg/dL CALCIUM 8.9 8.6 - 10.6 mg/dL T PROTEIN 7.5 6.3 - 8.2 g/dL ALBUMIN 4.5 3.5 - 5.0 g/dL ALK PHOS 72 34 - 122 U/L ALTv 21 5 - 35 U/L AST(SGOT) 18 13 - 40 U/L eGFR 93.1 mL/min/1.73m2 URINALYSIS - Abnormal APPEARANCE Clear Clear COLOR Straw (*) Yellow PH 7.0 4.8 - 8.0 SP GRAVITY 1.008 1.003 - 1.030 GLU U QUAL Normal Normal BLOOD Negative Negative KETONES Negative Negative PROTEIN Negative Negative UROBILIN Normal Normal BILIRUBIN Negative Negative NITRITE Negative Negative LEUK RENITA Negative Negative RBC/HPF 1 0 - 3 HPF WBC/HPF <1 0 - 5 HPF BACTERIA Negative Negative SQ EPITH 1 HPF POCT TEST - Normal POCT PREG Negative On board controls acceptable with C Line Yes POCT PREG LOT # [id number] POCT PREG TEST DATE 2026-07-04 INFLUENZA A/B RSV COVID NAAT - Normal Influenza A NAAT Negative Negative Influenza B NAAT Negative Negative RSV by PCR Negative Negative SARS-CoV-2 NAAT Negative Negative EKG: If EKG completed, see Procedure Note. Orders and Treatments: Orders Placed This Encounter Procedures CBC WITH DIFF COMP. METABOLIC PANEL (17177) POCT TEST Influenza A B RSV COVID NAAT URINALYSIS Orders Placed This Encounter Medications cloNIDine 0.1 mg tablet NaCl 0.9% (NS) bolus infusion 1,000 mL metoclopramide HCl (REGLAN) injection 10 mg diphenhydrAMINE (BENADRYL) injection 25 mg ketorolac (TORADOL) injection 30 mg dexamethasone sod phos PF injection 10 mg SUMAtriptan (IMITREX) 5 mg/actuation nasal spray First Provider Eval: ED Events Date/Time Event User Comments 03/11/251905 Medical Screening Begins FATUMA GARZA DO -- 03/11/251905 First Provider Evaluation FATUMA GARZA DO -- ED COURSE Diagnosis/Impression as of 03/12/25 0053 Acute nonintractable headache, unspecified headache type Leukocytosis, unspecified type Results Procedures: Procedures MDM: Assessment & Plan Medical Decision Making The patient presents from home for evaluation of her bilateral lower back pain as well as a headache that started yesterday and has progressively gotten worse. She denies any injury or trauma. No fevers or chills. No nausea or vomiting. She reports her headache is worse with looking up or down. Blurry vision. No dysuria but she does complain of urinary frequency. No weakness or numbness to her legs bilaterally. No change in her back pain with bending and movement. She reports she did go to [place] emergency department earlier today and was given a migraine cocktail and had a CT of her head which was unremarkable. She reports she still with a headache when she was discharged. She does have a history of high blood pressure and takes clonidine 0.1 mg nightly. No history of diabetes. She denies being . Vital signs are stable in the ER. The patient is obese. Her neck is supple and without meningismus. Her abdomen is soft and nontender. She has no CVA tenderness bilaterally. She has no focal neurological deficits on examination. No concern for bacterial meningitis or subarachnoid hemorrhage based on her presentation. She had a CT of her head completed earlier today which showed no bleeding, tumors or masses. Will give the patient a migraine cocktail here in the ER. Will also check a urinalysis today for possible infectious cause of her back pain.. Anticipate discharge home later. 0051 - the patient is doing well here in the ER. Her headache has resolved with the medications given today as has her back pain. Her viral swab is negative for COVID, influenza as well as RSV and her urinalysis shows no infection. She remained stable here in the ER and is okay for discharge home with PCP follow-up in 1 week. Problems Addressed: Acute nonintractable headache, unspecified headache type: acute illness or injury Leukocytosis, unspecified type: acute illness or injury Amount and/or Complexity of Data Reviewed Labs: ordered. Decision-making details documented in ED Course. Risk OTC drugs. Prescription drug management. Flowsheet Documentation: Scoring Tools: No data recorded Disposition/Condition: ED Disposition ED Disposition Discharge Condition Stable Comment -- Discharge Medications: Patient's Medications START taking these medications SUMATRIPTAN (IMITREX) 5 MG/ACTUATION NASAL SPRAY Use 1 [place] in each nostril as needed for Migraine. 1 spray in each nostril as directed. Dose may be repeated once after 2 hrs, not to exceed 8 sprays per 24 hours. CONTINUE taking these medications which have NOT CHANGED BUPROPION SR (WELLBUTRIN SR) 150 MG SR TABLET Take 150 mg by mouth 2 (two) times daily. BUSPIRONE 10 MG TABLET Take 10 mg by mouth 2 (two) times daily. CLONIDINE 0.1 MG TABLET Take 1 tablet by mouth once now. START taking Modified Medications as Prescribed No medications on file STOP taking these medications No medications on file Follow-up: Electronically signed by: Fatuma Garza DO 03/12/25 005 [facility]2024-09-20 00:00:00| [facility]2020-09-19 10:10:00 [facility] ([facility] OB Disch REPORT#:[id number] REPORT STATUS: Signed DATE:06/06/20 TIME: 1010 PATIENT: BRANDY OLIVIA UNIT #: [id number] ROOM/BED: 2016- : [birth year] AGE: 30 SEX: F ATTEND: Karen Mae MD ADM AUTHOR: Karen Mae MD * ALL edits or amendments must be made on the electronic/computer document * Subjective Subjective Admission EGA (wks/days): 34 5/7 wga EGA at delivery (wks/days): 34 5/7 Status/day: post operative (day 4) Patient reports: Patient reports: Yes: normal lochia, pain management effective, tolerating po well, voiding well. No: complaints. Objective General VS: Vital Signs Date Temp Pulse Resp B/P B/P Mean Pulse Ox FiO2 06/05 98.2 108 18 123/76 Last Documented: Result Date Time B/P 123/76 06/05 235 Temp 98.2 06/05 2350 Pulse 108 06/05 2350 Resp 18 06/05 2350 Pulse Ox 96 06/03 0345 B/P Mean 100.0 06/03 0340 Patient Weight Weight (lb): 242 Weight (oz): Weight (kg): 109.769 Notes: reting comfortably in bed Physical Exam Breasts: Feeding: pumping breasts Lungs: breathing unlabored Neuro: Exam: alert, oriented x3, normal speech DTR's (lower extr): brisk Abdomen: post gravid, soft, no abnormal tenderness, no guarding Incision site: well approximated edges, dry, no drainage, no inflammation Uterus: involution appropriate, non-tender Fundus: below the umbilicus Lochia: normal Lower extremities: Edema: 2+ pitting Calf tenderness: negative Results Results: no new labs, vital signs stable Discharge Summary Discharge Summary Free Text A P: Doing well POD 4 s/p Primary CD for mono di TIUP @ 34 5/7 WGA. SHe is meeting all milestones, pain is now controlled, and she has a normal exam with normalized VS (had PIH in ) Date of admission: Date of admission: 06/03/20 Admission diagnosis: pre-eclampsia, twins, 34 5/7 nonreassuring parameters on testing Hospital course: primary admit, epidural anesthesia, nml postop/ postpart care Baby A: status: live born Gender: female 1 minute: 8 5 minutes: 8 Baby B: status: live born Gender: female 1 minute: 7 5 minutes: 9 Nursing data: The data set between the solid lines has been imported from nursing documentation. Any exceptions have been noted below under Provider comments. EGA (weeks/days): 34.5 EGA at admit (weeks): Delivery date A: 06/02/20 Delivery time infant A: 2321 Birthweight (gm) infant A: 2710 Feeding preference: Gender A: Female 1 minute infant A: 8 5 minutes infant A: 8 10 minutes infant A: Provider comments on imported nursing data: [] Plan: routine care, discharge today Instructions: routine instr sheet given Diet: regular Activity and restrictions: up ad manny, may shower, pelvic rest, no intercourse for 6 wks Contraception discussed: abstinence for 4-6 weeks Discharge meds: Stop taking the following medications: valACYclovir (VALTREX) 500 MG TAB 500 MILLIGRAM ORAL DAILY. Continue taking these medications: PNV WITH FE FUMARATE/FA () 1 EACH TAB 1 TABLET ORAL DAILY. DOCUSATE SODIUM (COLACE) 100 MG CAP 100 MILLIGRAM ORAL TWICE DAILY. Prescriptions: e-prescribe Rx drug database reviewed: yes Consultation(s): Consultation performed: anesthesia, web design intern Discharge condition: stable Discharge to: home Follow up in: 2 weeks Discharge diagnosis: twin IUP, delivered 34 5/7 WGA , preeclampsia Discharge management: greater than 30 mins Time spent: Time spent with patient (minutes): 20 >50% spent on counseling/coordination of care: yes at 1015 RPT #:[id number] END OF REPORT [id number] 14:56:00 [facility] ([facility]) OB Postpart Progr Note REPORT#:[id number] REPORT STATUS: Signed DATE:06/05/20 TIME: 1456 PATIENT: BRANDY OLIVIA UNIT #: [id number] ROOM/BED: : 89 AGE: 30 SEX: F ATTEND: Karen Mae MD ADM AUTHOR: Karen Mae MD * ALL edits or amendments must be made on the electronic/computer document * Subjective Subjective Admission EGA (wks/days): 34 5/7 wga EGA at delivery (wks/days): 34 5/7 Status/day: post operative (day 3) Comments: C/O incisional pain today, but pain meds helping. Objective Nursing Documentation Review Nursing data: The data set between the solid lines has been imported from nursing documentation. Any exceptions have been noted below under Provider comments. Feeding preference: Provider comments on imported nursing data: [] General VS: Vital Signs Date Temp Pulse Resp B/P B/P Mean Pulse Ox FiO2 06/04-06/05 98.0-98.9 84-101 - 121-136/75-83 Last Documented: Result Date Time B/P 124/82 06/05 920 Temp 98.0 06/05 920 Pulse 98 06/05 09 Resp 20 06/05 920 Pulse Ox 96 06/03 345 B/P Mean 100.0 06/03 340 Patient Weight Weight (lb): 242 Weight (oz): Weight (kg): 109.769 Notes: resting comfortably Physical Exam Breasts: Breasts: filling Flow: colostrum Nipples: intact Feeding: pumping breasts Lungs: breathing unlabored Neuro: Exam: alert, oriented x3, normal speech DTR's (lower extr): brisk Abdomen: soft, no abnormal tenderness, no guarding, no rebound tenderness Incision site: well approximated edges, no drainage, no inflammation Uterus: involution appropriate, non-tender Fundus: non-tender, difficult to palpate 2/2 habitus @umbilius Lochia: normal Lower extremities: Edema: 2+ pitting Calf tenderness: negative Diagnosis, Assessment Plan Diagnosis, Assessment Plan Assessment: nml progress, PIH, improving Plan: routine care, discharge tomorrow at 1457 RPT #:[id number] END OF REPORT [id number] 13:34:00 [facility] ([facility]) OB Postpart Progr Note REPORT#:[id number] REPORT STATUS: Signed DATE:06/04/20 TIME: 1334 PATIENT: BRANDY OLIVIA UNIT #: [id number] ROOM/BED: : 89 AGE: 30 SEX: F ATTEND: Karen Mae MD ADM AUTHOR: Karen Mae MD * ALL edits or amendments must be made on the electronic/computer document * Subjective Subjective Admission EGA (wks/days): 34 5/7 wga EGA at delivery (wks/days): 34 5/7 Status/day: post operative (day 2) Patient reports: Patient reports: Yes: normal lochia, pain management effective, tolerating po well, voiding well, voiding without pain. No: complaints. Objective Nursing Documentation Review Nursing data: The data set between the solid lines has been imported from nursing documentation. Any exceptions have been noted below under Provider comments. Feeding preference: Provider comments on imported nursing data: [] General VS: Vital Signs Date Temp Pulse Resp B/P B/P Mean Pulse Ox FiO2 06/03-06/04 97.8-98.6 74-90 18-20 113-140/67-88 Last Documented: Result Date Time B/P 118/76 06/04 0744 Temp 98.0 06/04 0744 Pulse 86 06/04 0744 Resp 20 06/04 0744 Pulse Ox 96 06/03 0345 B/P Mean 100.0 06/03 0340 Patient Weight Weight (lb): 242 Weight (oz): Weight (kg): 109.769 Notes: resting comfortably, no distress Physical Exam Breasts: Breasts: filling Flow: colostrum Nipples: intact Feeding: pumping breasts Lungs: breathing unlabored Neuro: Exam: alert, oriented x3, normal speech DTR's (lower extr): brisk Abdomen: soft, no abnormal tenderness, no guarding, no rebound tenderness Incision site: well approximated edges, no drainage, no inflammation Uterus: involution appropriate, non-tender Fundus: non-tender, difficult to palpate 2/2 habitus @umbilius Lochia: normal Lower extremities: Edema: 2+ pitting Calf tenderness: negative Diagnosis, Assessment Plan Diagnosis, Assessment Plan Assessment: nml progress, PIH, improving Plan: routine care, discharge tomorrow (vs Monday ) at 1335 RPT #:[id number] END OF REPORT [id number] 13:00:00 [facility] ([facility]) OB Postpart Progr Note REPORT#:[id number] REPORT STATUS: Signed DATE:06/03/20 TIME: 1300 PATIENT: BRANDY OLIVIA UNIT #: [id number] ROOM/BED: : 89 AGE: 30 SEX: F ATTEND: Karen Mae MD ADM AUTHOR: Karen Mae MD * ALL edits or amendments must be made on the electronic/computer document * Subjective Subjective EGA at delivery (wks/days): 34 5/7 Status/day: post operative (day 1/2) Patient reports: Patient reports: Yes: normal lochia, pain management effective, tolerating po well, voiding well. No: complaints. Comments: labile BP's overnight, responded to labetalol Infants both in L2 NICU doing well Objective Nursing Documentation Review Nursing data: The data set between the solid lines has been imported from nursing documentation. Any exceptions have been noted below under Provider comments. Feeding preference: Provider comments on imported nursing data: [] General VS: Vital Signs Date Temp Pulse Resp B/P B/P Mean Pulse Ox FiO2 06/02-06/03 97.6-98.6 76-124 18-32 120-163/70-96 92.0-124.0 91-99 Last Documented: Result Date Time B/P 121/77 06/03 1152 Temp 97.8 06/03 1152 Pulse 80 06/03 1152 Resp 20 06/03 1152 Pulse Ox 96 06/03 0345 B/P Mean 100.0 06/03 0340 Patient Weight Weight (lb): 242 Weight (oz): Weight (kg): 109.769 Nutrition assessment: The data set between the solid lines has been imported from the dietitian's assessment. Any exceptions have been noted under Provider comments. BMI Calculated: 44.26 Nutrition related diagnosis: Nutrition diagnosis details: Nutrition problem: Nutrition etiology: Nutrition signs and symptoms: Nutrition prescription: Dietitian name: Assessment completed: Provider comments on imported dietitian assessment: Physical Exam Breasts: Breasts: filling Flow: colostrum Nipples: intact Feeding: pumping breasts Lungs: breathing unlabored Neuro: Exam: alert, oriented x3, normal speech DTR's (lower extr): brisk Abdomen: soft, no abnormal tenderness, no guarding, no rebound tenderness Incision site: well approximated edges, no drainage, no inflammation Uterus: involution appropriate, non-tender Fundus: non-tender, difficult to palpate 2/2 habitus @umbilius Lochia: normal Lower extremities: Edema: 2+ pitting Calf tenderness: negative Result Findings/data: Laboratory Tests: 06/02 06/02 06/02 06/02 2344 2343 [...] % (Auto) (14.3 - 34.3 %) 26.3 [place] % (Auto) (5.1 - 10.4 %) 9.2 Eos % (Auto) (0.1 - 3.0 %) 0.4 Baso % (Auto) (0.1 - 1.0 %) 0.3 Neut # (Auto) (K/mm3) 6.9 Lymph # (Auto) (K/mm3) 3.0 [place] # (Auto) (K/mm3) 1.1 Eos # (Auto) (K/mm3) 0.05 Baso # (Auto) (K/mm3) 0.0 Serology SARS-CoV-2 Ag (Rapid) (NEGATIVE) NEGATIVE Diagnosis, Assessment Plan Diagnosis, Assessment Plan Free text A P: 30 yo s/p Primary CD for monodi TIUP @ 34 5/7 WGA POD 1/2 doing well, no apparent surgical complications PIH spiked overnight, currently normotensive and asytmpomatic, will treat pressures PRN with labetalol Routine care. at 1303 [facility] #:[id number] END OF REPORT [id number] 23:55:00 [facility] ([facility]) OB Delivery Note REPORT#:[id number] REPORT STATUS: Signed DATE:06/02/20 TIME: 7476 PATIENT: BRANDY OLIVIA UNIT #: [id number] ROOM/BED: [address] : 89 AGE: 30 SEX: F ATTEND: Karen Mae MD ADM AUTHOR: Karen Mae MD * ALL edits or amendments must be made on the electronic/computer document * OB Delivery Pre-delivery GBS status: GBS status: unknown Meds prior to delivery: betamethasone evaluation at delivery: NRP certified personnel Admission EGA (wks/days): 34 5/7 wga EGA at delivery (wks/days): 34 5/7 Steroids Prior to Delivery Steroids prior to delivery: yes, delivery 24-34 weeks Baby A Information Baby A information Delivery date: 06/02/20 Delivery time: 2320 status: live born Wt of baby (grams): 2710 Wt of baby (lbs/oz): 6#0oz Gender: female 1 minute: 8 5 minutes: 8 Presentation: vertex ABG details Baby A Cord blood gases: collected Nuchal cord Baby A Nuchal cord: no Baby B Information Baby B information Delivery date: 06/02/20 Delivery time: 2321 status: live born Wt of baby (grams): 2430 Wt of baby (lbs/oz): 5#6oz Gender: female 1 minute: 7 5 minutes: 9 Presentation: vertex ABG details Baby B Cord blood gases: collected Nuchal cord Baby B Nuchal cord: yes (loose and reduced) Delivery section Primary indication: abnormal cord and MCA dopplers x 2 twin Priority: indicated (add on) Antibiotic prior to incision: 1 dose )(SCDs applied activated: Yes Uterine incision: low transverse Consent: indication discussed, questions answered, pt consent to op delivery Mother's condition: mother stable Infant's condition: to NICU (A B to Level 2 NICU ) Op/Inv Proc Note - Brief )(Start date: 06/02/2020 )( Procedure(s) performed: prim low transverse c/s )( Primary Surgeon: Karen Mae MD )( Laborer Plumbing(s): ALONDRA Castillo Anesthesiologist: Ulises Simon MD )( Pre-procedure diagnosis: Monochorionic diamniotic twin intrauterine pregancy at 34 5/7 WGA Elevated umbilical and MCA dopplers of both fetuses Mild PIH without severe symptoms )( Post-procedure diagnosis: same Anesthesia: combined spinal/epidural )( Estimated blood loss (ml): 1000 )( Specimen removed/altered: placenta, sent to patholgy )( Complications: none Fluids: 2600 Urine output: 50, clear light yellow urine )( Finding(s): Normal uterus, normal tubes and ovaries bilaterally, infantss as above, both delievered in cephalic presentation Condition: stable Blood Loss/Details Blood loss at delivery: 1000 at 0000 RPT #:[id number] END OF REPORT [id number] 23:55:[id number] [facility] [address], [place] [address] PATIENT NAME: BRANDY OLIVIA ADMIT DATE: 06/03/20 ACCOUNT NO: [id number] ROOM NO: F.2015 AGE: 30 SEX: F ADMITTING PHYSICIAN: Karen Mae MD ATTENDING PHYSICIAN: Karen Mae MD OPERATION DATE: 06/02/2020 PROCEDURE PERFORMED: Primary lower uterine transverse section. PREOPERATIVE DIAGNOSES: 1. [place]-di twin intrauterine at 34 weeks and 5 days gestational age. 2. Elevated cord blood and MCA Dopplers of both infants A and B. 3. Preeclampsia, mild without severe symptoms. POSTOPERATIVE DIAGNOSES: 1. [place]-di twin intrauterine at 34 weeks and 5 days gestational age. 2. Elevated cord blood and MCA Dopplers of both infants A and B. 3. Preeclampsia, mild without severe symptoms. SURGEON: Karen Mae MD NUTRITION EDUCATOR: ALONDRA Vasquez. ANESTHESIA: ESTIMATED BLOOD LOSS: 1000 mL. URINE OUTPUT: 50 mL. INTRAVENOUS FLUIDS: 2600 mL. FINDINGS: The A was in the cephalic presentation, clear amniotic fluid was noted upon entry to the amniotic sac. Infant A's Apgars were 8 and 8, weight 2710 grams (6 pounds 0 ounces), no obvious anomalies, female infant. B was also in the cephalic presentation with clear amniotic fluid. Also, a girl, time 2322, Apgars 7 and 9, weight 2430 grams (5 pounds 6 ounces), with a loose nuchal cord. The uterus appeared normal. The tubes and ovaries appeared normal bilaterally. PROCEDURE IN DETAIL: The patient was taken to the operating room where her epidural was obtained without difficulty. She was then prepped in the dorsal supine position with a leftward tilt. Chlorhexidine was used on her abdomen for her abdominal prep. After it was allowed to dry for 3 minutes, she was sterilely draped. Allis test was used to confirm anesthesia. Time-out was held. A Pfannenstiel skin incision was made with the scalpel and then carried down to the underlying fascia using the Bovie cautery device. The fascia was incised on either side of midline and the fascial incision was extended in a curvilinear fashion on either side. The superior aspect of the fascia was PATIENT NAME: BRANDY OLIVIA grasped with Clarice clamps and elevated. The rectus abdominis muscle was dissected off the midline of the fascia using sharp dissection. The rectus abdominis muscles were then bluntly divided. Peritoneum was identified, entered bluntly, and bluntly divided. A bladder blade was placed. A bladder flap was created to protect the bladder. This was done using a combination of sharp and blunt dissection. Once the bladder had been tucked away underneath the bladder flap, the hysterotomy was made in the lower uterine segment in the transverse direction. After entry to the uterus, the hysterotomy was then manually extended in a Bruce maneuver. The 's amniotic sac was ruptured. Clear fluid was noted. The 's head was grasped and the A was delivered. One minute after , the cord was clamped and cut and the infant was handed off to awaiting nurses for resuscitation and evaluation. The infant went to the level 2 NICU with the neonatology team. Cord gases were collected. Infant B's sac was then ruptured with an Allis clamp. Clear fluid was noted. A's head was grasped and similarly with fundal pressure, the infant was delivered through the hysterotomy without difficulty. A loose nuchal cord was noted. This was reduced at the time of delivery. After 1 minute, the infant B's cord was clamped and cut and the infant was similarly handed off to nurses and neonatology team for resuscitation and evaluation. At this point, cord blood gases were collected on infant B's umbilical cord. Aliquots of the infant A and B blood were collected for infant blood typing and the placenta was delivered manually. There was a small segment, which had to be manually extracted independently of the uterus. It is unclear if this was a succenturiate lobe or just a retained part of her main placenta. Ultimately, the inside of the uterus was inspected. There were no trailing membranes or placental remnants left. Excellent uterine tone was noted. The hysterotomy was closed using [address]-1 needle. A second imbricating layer was used for hemostasis and to reinforce the hysterotomy in case of future pregnancies. At this point, the posterior cul-de-sac and pericolic gutters were copiously irrigated and cleared of all clots and debris and the uterus was returned to the abdomen. The hysterotomy was inspected off tension and noted to be hemostatic. The peritoneum was then closed using 3-0 Vicryl. The rectus abdominis muscles were plicated in the midline using 3-0 chromic. The rectus abdominis muscles were inspected and noted to be hemostatic. The fascia was closed using [address]-1 needle. The subcuticular tissue was then irrigated and reapproximated using 2-0 plain gut and the skin was closed using 4-0 Monocryl. She tolerated the procedure well. Sponge, lap, and instrument counts were correct at the end of the procedure. Her 's disposition is level 2 for both baby A and baby B. COMPLICATIONS: There were no complications. Dictated By: Karen Mae MD WT: OP:F.CHAO/AUTUMN/SIXTO Conf#: [id number]/DID#: [id number] Authenticated by Karen Mae MD On 06/15/2020 04:20:03 PM PATIENT NAME: BRANDY OLIVIA at 1620 PATIENT NAME: BRANDY OLIVIA 18:00:00 [facility] ([facility]) OB Admission / H P REPORT#:[id number] REPORT STATUS: Signed DATE:06/02/20 TIME: 1800 PATIENT: BRANDY OLIVIA UNIT #: [id number] ROOM/BED: [address] : 89 AGE: 30 SEX: F ATTEND: Karen Mae MD ADM AUTHOR: Karen Mae MD * ALL edits or amendments must be made on the electronic/computer document * OB Admission H P Hx Chief complaint: elevated blood pressure, elevated MCA dopplers HPI: Brandy is a 30 year old G1 who presents at 34 5/7 WGA with mono di TIUP. She has been closely followed by [facility] for several weeks with slowly increasing BP's and increasing evidence of placental resistance/insufficiency. She recieved FLM steroids last week in house during a [facility] eval admssion. Today she was seen by Dr. Comer ([facility]) who recommended admission to [facility] and [...] RUQ pain. She reports normal movement x 2 and no leaking fluid or vaginal bleeding. 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 Denies: dysuria, flank pain, frequency, hematuria, nocturia, previous pregnancies, urgency, urinary retention, vaginal bleeding, vaginal discharge, other. Psych: anxiety. Denies: agitation, auditory hallucination, change in mental status, confusion, delusional, depression, homicidal ideation, hostile, insomnia, stress , suicidal ideation, visual hallucination, other. Additional notes: contractions/low back pain x 48 hours, denies NUNEZ vis change,s RUQ pain, vaginal bleeding, and leaking fluid. Normal movement x 2 All systems rev neg: except as marked Objective General VS: Last Documented: Result Date Time B/P 126/80 06/02 171 Temp 98.6 06/02 1715 Pulse 111 06/02 1715 Resp 20 06/02 171 B/P Mean 98.0 06/02 1707 Vital Signs Date Temp Pulse Resp B/P B/P Mean Pulse Ox FiO2 06/02 98.6 111 20 126/80 98.0 Patient Weight Weight (lb): Weight (oz): Weight (kg): Physical Exam HEENT: normocephalic w/o injury Cardiac: regular rate and rhythm Lungs: clear to auscultation Breasts: deferred Neuro: Exam: alert, oriented x3, normal speech DTR's (lower extr): brisk Abdomen: gravid, soft, no abnormal tenderness, no guarding, no rebound tenderness Uterine activity: Monitor: toco Frequency (description): rare Frequency (minutes): 30 Duration (seconds): 90 Intensity: mild Resting tone: relaxed Membranes: Membranes: Intact Lower extremities: Edema: 2+ pitting Calf tenderness: negative Baby A: Baby A variability: moderate 6-25 bpm Baby A accelerations: 15 X 15 Baby A decelerations: none Baby A FHR category: category 1 Baby B: Baby B baseline: 150 bpm Baby B variability: moderate 6-25 bpm Baby B accelerations: 15 X 15 Baby B decelerations: late Baby B FHR category: category 2 (overall reassuring ) Result Findings/Data: Laboratory Tests: 06/02 165 Chemistry Sodium (135 - 145 mEq/L) 136 [...] % (Auto) (14.3 - 34.3 %) 26.3 [place] % (Auto) (5.1 - 10.4 %) 9.2 Eos % (Auto) (0.1 - 3.0 %) 0.4 Baso % (Auto) (0.1 - 1.0 %) 0.3 Neut # (Auto) (K/mm3) 6.9 Lymph # (Auto) (K/mm3) 3.0 [place] # (Auto) (K/mm3) 1.1 Eos # (Auto) (K/mm3) 0.05 Baso # (Auto) (K/mm3) 0.0 Serology SARS-CoV-2 Ag (Rapid) (NEGATIVE) NEGATIVE Diagnosis, Assessment Plan Diagnosis, Assessment Plan Free Text A P: 30 yo G1 @ 34 5/7 WGA -Abnormal dopplers on imaging today and HR deceleration. d/w pt, will plan on moving to delivery via P CD. - PIH, normal labs at present and normotensive/asytmpomtic. - for pedi @ delivery - mat h/o HSV, no active lesions, on valtrex OR and nursing notified at 1812 RPT #:[id number] END OF REPORT [id number] 08:58:00 [facility] ([facility]) OB Disch Undelivered REPORT#:[id number] REPORT STATUS: Signed DATE:05/28/20 TIME: 857 PATIENT: BRANDY OLIVIA UNIT #: [id number] ROOM/BED: [address] : 89 AGE: 30 SEX: F ATTEND: Karen Mae MD ADM AUTHOR: Karen Mae MD * ALL edits or amendments must be made on the electronic/computer document * Subjective Subjective Admission EGA (wks/days): 33 6/7 Status/Day: hospital day (day 2) Comments: see daily progress note for exam and objective/subjective data Objective Physical Exam FHR evaluation: Baby A baseline: 125 bpm Baby A variability: moderate 6-25 bpm Baby A accelerations: 15 X 15 Baby A decelerations: none Baby A FHR category: category 1 Uterine activity: Monitor: toco Frequency (description): rare HEENT: normocephalic w/o injury Lungs: clear to auscultation Neuro: Exam: alert, oriented x3, normal speech, normal gait, CNII-XII grossly intact , reflexes equal bilat DTR's (lower extr): normal 1-2+ Abdomen: gravid, soft, no abnormal tenderness, no guarding, no rebound tenderness Lower extremities: Edema: 1+ pitting Calf tenderness: negative Discharge Undelivered Discharge Undelivered Assessment: 30 yo with mono di TIUP, admitted at 33 4/7 WGA for PIH evaluation. She had MFM consult in house with reassuring findings She received Celestone for lung maturity on 05/27 DC home with strict precautions Instructions: instr and warnings rev'd Warnings: preeclampsia signs/sympt Diet: regular Activity and restrictions: modified bedrest Prescriptions: none Consultation(s) performed: Consultation performed: web design intern Discharge condition: stable Discharge to: home Follow up with: neurologist, circulation representative Follow up in: 1 week Discharge diagnosis: pre-eclampsia (no severe features) Discharge management: less than 30 mins Time spent: Time spent with patient (minutes): 15 >50% spent on counseling/coordination of care: yes at 0902 RPT #:[id number] END OF REPORT [id number] 08:41:00 [facility] ([facility]) OB Antepartum Prog Note REPORT#:[id number] REPORT STATUS: Signed DATE:05/28/20 TIME: 840 PATIENT: BRANDY OLIVIA UNIT #: [id number] ROOM/BED: [facility]- : 89 AGE: 30 SEX: F ATTEND: Karen Mae MD ADM AUTHOR: Karen Mae MD * ALL edits or amendments must be made on the electronic/computer document * Subjective Subjective Comments: 34 0/7 WGA, no overnight events, feeling better this am Objective Nursing Documentation Review Nursing data: The data set between the solid lines has been imported from nursing documentation. Any exceptions have been noted below under Provider comments. ROM date: ROM time: Labor onset date: Labor onset time: EGA at admit (weeks): Provider comments on imported nursing data: [] VS: Last Documented: Result Date Time B/P Mean 102.0 05/28 0422 B/P 143/75 05/28 0422 Pulse 96 05/28 0422 Pulse Ox 98 05/27 2041 Temp 98.6 05/27 204 Resp 19 05/27 2041 Vital Signs Date Temp Pulse Resp B/P B/P Mean Pulse Ox FiO2 05/27-05/28 98.6 87-100 19 126-143/75-89 96.0-104.0 98 Patient Weight Weight (lb): 241 Weight (oz): Weight (kg): 109.316 Membranes: Intact Uterine activity: Monitor: toco Frequency (description): rare HEENT: normocephalic w/o injury Neuro: Exam: alert, oriented x3, normal speech, normal gait, CNII-XII grossly intact , reflexes equal bilat DTR's (lower extr): normal 1-2+ Abdomen: gravid, soft, no abnormal tenderness, no guarding, no rebound tenderness Lower extremities: Edema: 1+ pitting Calf tenderness: negative Baby A: Baby A baseline: 125 bpm Baby A variability: moderate 6-25 bpm Baby A accelerations: 15 X 15 Baby A decelerations: none Baby A FHR category: category 1 Baby B: Baby B baseline: 130 bpm Baby B variability: moderate 6-25 bpm Baby B accelerations: 15 X 15 Baby B decelerations: none Baby B FHR category: category 1 Findings/data: Laboratory Tests: 05/28 05/27 05/27 0012 1715 1500 [...] % (Auto) (14.3 - 34.3 %) 21.7 Marl[place] % (Auto) (5.1 - 10.4 %) 8.9 Eos % (Auto) (0.1 - 3.0 %) 0.6 Baso % (Auto) (0.1 - 1.0 %) 0.6 Neut # (Auto) (K/mm3) 7.1 Lymph # (Auto) (K/mm3) 2.4 [place] # (Auto) (K/mm3) 1.0 Eos # (Auto) [...] 310.0 H Diagnosis, Assessment Plan Diagnosis, Assessment Plan Free Text A P: mono di TIUP, 34 0/7 WGA s/p ANT with Dr. Comer last night, reassuring status x 2 PIH, mild range pressures, no severe features, normal labs, asytmpomatic this am s/p celestone x 1, due for 2nd dose this pm Will plan on discharge home with strict precatuions after her second dose of celestone at 0844 RPT #:[id number] END OF REPORT [id number] 22:51:00 [facility] ([facility]) [facility] Consultation Note REPORT#:[id number] REPORT STATUS: Signed DATE:05/27/20 TIME: 2250 PATIENT: BRANDY OLIVIA UNIT #: [id number] ROOM/BED: [facility] : 89 AGE: 30 SEX: F ATTEND: Karen Mae MD ADM AUTHOR: Jordana Comer MD * ALL edits or amendments must be made on the electronic/computer document * History of Present Illness HPI HPI: 30 YEAR OLD G1 AT 33 6/7 WEEKS GA, MO/DI TWINS, NO EVIDENCE OF TTTS BY PREVIOUS EVALUATIONS, PRESENTED WITH ELEVATED BP. Denies headache, epigastric pain. Has had labile BP for 2 weeks. 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 History Past History Past medical history: HSV genitalis Past surgical history: denies PSH Past social history: no alcohol use, no drug abuse, no tobacco use Past family history: Relation not specified for: Family History: Unremarkable Medications: Current Hospital Medications: Central Nervous System Agents Sig/Tequila Start time Last [...] Admin Multivi/Iron Carb/Fe 1 EA DAILY 05/28 09 AC Sulf/FA/Prenat PO 07/27 0859 ( VITAMINS) Allergies: Coded Allergies: No Known Drug Allergies (05/27/20) Objective Physical Exam VS/I O: Vital Signs: Date Time Temp Pulse Resp B/P [...] 19 05/27 2041 Patient Weight Weight (lb): 241 Weight (oz): Weight (kg): 109.316 General appearance: alert, awake, no acute distress HEENT: normocephalic Cardiovascular: regular rate and rhythm Respiratory: clear to auscultation Abdomen: non-tender, soft Extremities: edema (trace), moves all, no calf tnederness Neuro/WIND UP OPERATOR: alert, oriented x 3, normal gait, normal speech, reflexes equal bilat. Skin: dry, intact, normal color, normal temperature, normal turgor Psychiatry: normal affect, normal judgment/insight, normal mood, not homicidal heart rate pattern: category I ( x 2) Results Findings/Data: Laboratory Tests 05/275 Chemistry Sodium (135 - 145 mEq/L) 138 [...] % (Auto) (14.3 - 34.3 %) 21.7 Marl[place] % (Auto) (5.1 - 10.4 %) 8.9 Eos % (Auto) (0.1 - 3.0 %) 0.6 Baso % (Auto) (0.1 - 1.0 %) 0.6 Neut # (Auto) (K/mm3) 7.1 Lymph # (Auto) (K/mm3) 2.4 [place] # (Auto) (K/mm3) 1.0 Eos # (Auto) (K/mm3) 0.06 Baso # (Auto) (K/mm3) 0.1 Immature Plt Fraction (0.0 - 10.8 %) 8.1 Laboratory Tests 05/27 05/27 1715 1500 Serology Treponema pallidum Ab (NONREACTIVE) NONREACTIVE Hep Bs Antigen (NONREACTIVE) NONREACTIVE Hepatitis C Antibody (NONREACTIVE) NONREACTIVE Hep C Ab Signal/Cutoff (<0.80) 0.23 HIV 1 2 Antibody (NONREACTIVE) NONREACTIVE SARS-CoV-2 Ag (Rapid) (NEGATIVE) NEGATIVE Radiology data: ULTRASOUND: diamniotic monochorionic twins A maternal left vertex no anomalies normal bladder heart MCA PSV 54 S/D UA 3.9 BPP 8/8 EFW 2360 gms, 50 % B maternal right vertex no grosss anomalies noraml bladder heart MCAPSV 64 S/D UA 3.3 BPP 8/8 EFW 2417 gms, 55 % cervix 2.89 cm long and closed AGA fetuses no evidence of TTTS reassuring [facility] Diagnosis, Assessment Plan Diagnosis, Assessment Plan Free Text A P: 30 year old G1 at 33 6/7 weeks GA 1. mo/di twins, AGA, , no TTTS, category 1 tracingat risk for delivery: celestone 2. gestational hypertension, no evidence of severe preeclampsia, pending urine protein, BP stablizied with rest. Protein/creatinine ratio pending. recommend rest, monitoring for developement of preeclampsia 3. possibly hemoconcentrated ( increased H/H), but normal BUN/CREATININE, continue hydration 4. recommend close monitoring, delivry at 36 weeks GA unless development of severe hypertension or preeclamspai. Thank you at 2303 RPT #:[id number] END OF REPORT [id number] 17:19:00 [facility] ([facility]) OB Admission / H P REPORT#:[id number] REPORT STATUS: Signed DATE:05/27/20 TIME: 1719 PATIENT: BRANDY OLIVIA UNIT #: [id number] ROOM/BED: [address] : 89 AGE: 30 SEX: F ATTEND: Karen Mae MD ADM AUTHOR: Karen Mae MD * ALL edits or amendments must be made on the electronic/computer document * OB Admission H P Hx Chief complaint: elevated blood pressure HPI: Brandy is a 30 year old G1 @ 33 6/7 WGA who presents for [facility]U admission secondary to concerns for PIH. This is a mono-di TIUP and she has been followed by MFM throughout the ,with recent evidence of elevated SDR in both babies. She has had gradually increasing BP's in the high-normal range for the past two weeks, however over the past 2-3 days she has had a persistent headache and doesn't feel well ("I just feel off"). In cliinc today her BP was 150s/90s. She is being admitted for observation, lung maturity streroids and in- house MFM testing. history: : 1 Term: 0 Current : LMP: 10/03/19 EDC: 07/09/20 Admission EGA (wks/days): 33 6/7 EGA based on: LMP (c/w 1st tri sonogram) Multiples: twins Chorionicity: 2 amnion 1 chorion Conditions of : cervical dysplasia obesity BMI 36 HSV, on valtrex Labs: Blood type: O Rh: negative Rubella: immune Hepatitis B: negative HIV: negative STD: negative Syphilis: currently negative GBS: unknown Procedures: NIPT normal Carrier screen negative Past medical history: denies PMH Past surgical history: denies PSH Social history: , no alcohol use, no tobacco use, no drug use Family history Relation not specified for: Family History: Unremarkable Medications: vitamin Allergies Coded Allergies: No Known Drug Allergies (05/27/20) Review of Systems Constitutional: fatigue. Denies: chills, fever, generalized weakness, lethargy, malaise, recent wt loss, other. Neuro: headache. Denies: bladder dysfunction, bowel dysfunction, change in LOC, confusion, dizziness, focal weakness, gait problem, lightheaded, numbness, seizure, slurred speech, spinning sensation, syncope, unable to speak, vision change, weakness, other. Additional notes: occasional contractions, normal movement x 2, no leaking fluid or vaginal bleeding Objective General VS: Last Documented: Result Date Time B/P Mean 104.0 05/27 1516 B/P 128/89 05/27 1516 Pulse 95 05/27 1516 Vital Signs Date Temp Pulse Resp B/P B/P Mean Pulse Ox FiO2 05/27 95 128/89 104.0 Patient Weight Weight (lb): 241 Weight (oz): Weight (kg): 109.316 Physical Exam HEENT: normocephalic w/o injury Cardiac: regular rate and rhythm, no clinically sig murmur, no gallops Lungs: clear to auscultation Breasts: deferred Neuro: Exam: alert, oriented x3, normal speech, normal gait, CNII-XII grossly intact , reflexes equal bilat DTR's (lower extr): normal 1-2+ Abdomen: gravid, soft, no abnormal tenderness, no guarding, no rebound tenderness Uterine activity: Monitor: toco Frequency (description): rare Pelvic exam: Exam: soft, non-tender, approp size for gest age Membranes: Membranes: Intact Lower extremities: Edema: 1+ pitting Calf tenderness: negative Baby A: Baby A baseline: 125 bpm Baby A variability: moderate 6-25 bpm Baby A accelerations: 15 X 15 Baby A decelerations: none Baby A FHR category: category 1 Baby B: Baby B baseline: 130 bpm Baby B variability: moderate 6-25 bpm Baby B accelerations: 15 X 15 Baby B decelerations: none Baby B FHR category: category 1 Result Findings/Data: Laboratory Tests: 05/27 05/27 1715 1500 Chemistry Sodium [...] % (Auto) (14.3 - 34.3 %) 21.7 [place] % (Auto) (5.1 - 10.4 %) 8.9 Eos % (Auto) (0.1 - 3.0 %) 0.6 Baso % (Auto) (0.1 - 1.0 %) 0.6 Neut # (Auto) (K/mm3) 7.1 Lymph # (Auto) (K/mm3) 2.4 [place] # (Auto) (K/mm3) 1.0 Eos # (Auto) (K/mm3) 0.06 Baso # (Auto) (K/mm3) 0.1 Immature Plt Fraction (0.0 - 10.8 %) 8.1 Serology Treponema pallidum Ab (NONREACTIVE) NONREACTIVE Hep Bs Antigen (NONREACTIVE) NONREACTIVE SARS-CoV-2 Ag (Rapid) (NEGATIVE) NEGATIVE Results: labs reviewed, vital signs stable Diagnosis, Assessment Plan Diagnosis, Assessment Plan Free Text A P: 30 yo G1 @ 33 6/7 WGA mono di TIUP with gHTN vs PIH, no severe features - PIH, asytmpomatic at present, will trend BP's. Admit labs show no e/o HELLP - MonodiTIUP, plan for ultrasound with Dr. Comer this pm, will plan on delivery via primary CD when indicated - lung maturity steroids now, and repeat tomorrow (given at 5 pm today). Mag for severe features. - COVID negative - GBS unknown, if labors will need abx. at 1913 RPT #:[id number] END OF REPORT [facility]
[2025-07-05] MEDS ORDERED: FLUORESCEIN SODIUM 1 MG/WRAP ONE (03:35)
[2025-07-05] MEDS ORDERED: TETRACAINE HCL 0.5% 4ML OPTH ONE (03:36)
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
[2025-07-05] MEDS ORDERED: CYCLOPENTOLATE 2% OPTH 2 ML ONE (05:25)
[2025-07-05 12:46] VITALS: TEMP 97.6
[2025-07-05 12:51] VITALS: BP 166/92; O2SAT 95
== END 2025-07-05 05:37 | disposition home or self-care (01) ==
LOC: ER 02:58
DX: H20.9 Unspecified iridocyclitis (principal); H21.02 Hyphema, left eye
CPT/HCPCS: 99283